=== PATIENT | male | born 1970 | race Caucasian/White ===

== ENCOUNTER 2020-10-28 00:19 | Day surgery (SDC) | payer BC, SELFPAY ==
[2020-10-18 15:18] VITALS: BMI 22.4
--- NOTE | 2020-10-27 11:34 | PM.HPGS ---
History of Present Illness History of Present Illness Consent: Risks, benefits, and alternatives have been discussed and questions answered. Patient agrees to proceed with procedure. Chief complaint: neoplasm screening Narrative: Ion Rodney is a 50 year old male referred for colon cancer screening. His father had colon cancer Review of Systems Review of Systems: All systems reviewed & are unremarkable except as noted in HPI and below PMFSH Past Medical History Medical History Paraplegia, complete Right rotator cuff tear (~08/2017) Social History Social History Smoking status: Never smoker Alcohol intake: current Drinks per week: 1 Living arrangements: alone Spiritual care concerns: No Meds Home Medications and Allergies Home Medications Medication Instructions Recorded Confirmed Type No Home Medications 10/05/19 10/18/20 History Allergies Allergy/AdvReac Type Severity Reaction Status Date / Time No Known Allergies Allergy Mild Verified 10/28/20 06:51 Exam Const: General: alert Orientation/consciousness: patient oriented x3 Resp: Auscultation: clear to auscultation bilaterally Cardio: Rhythm: regular rhythm GI: GI Palp: Yes Soft to palpation and No Tenderness to palpation present (GI) Neuro: General: patient oriented x3 Assessment and Plan Assessment and plan (1) Colon cancer screening: Code(s): Z12.11 - Encounter for screening for malignant neoplasm of colon Status: Acute Assessment and Plan: Colonoscopy with possible biopsy or polypectomy or cautery or injection of substances.
[2020-10-28] MEDS: LACTATED RINGERS 1,000 ML 150 ML IV CONT (06:48)
[2020-10-28 06:53] VITALS: BP 110/90; PULSE 74; RESP 18; TEMP 35.8; O2SAT 96; BMI 22.1
--- NOTE | 2020-10-28 06:54 | WPDANESEPPF ---
Anes - Initial Pre Proc Eval Procedure: Operation Date: 10/28/20 07:30 Proposed Procedures p Screening Colonoscopy - Liborio Stubbs MD Date/Time: 10/28/20 06:54 Surgeon: Liborio Stubbs MD Pre Op Diagnosis: neoplasm screening Patient Data Age: 50 Gender: M Height: 1.8 m Weight: 73 kg Allergies Allergy/AdvReac Type Severity Reaction Status Date / Time No Known Allergies Allergy Mild Verified 10/28/20 06:51 Home Medications Medication Instructions Recorded Confirmed Type No Home Medications 10/05/19 10/18/20 History Patient hx anesthesia problems: none Family hx anesthesia problems: none PMF Past Medical History Medical History Paraplegia, complete Right rotator cuff tear (~08/2017) Social History Social History Smoking status: Never smoker Alcohol intake: current Drinks per week: 1 Living arrangements: alone Spiritual care concerns: No Anes - Eval Final PreProcedure Day of Procedure 10/28/20 06:54 Patient weight: normal Heart: regular rate and rhythm Lungs: clear to auscultation Airway: Mallampati scale class 1 Neurological: alert and oriented Last oral intake: >/= 8 hours ASA classification: III Emergent: no Anesthetic plan: proceed Anesthesia type and monitoring: general GIVS and standard monitoring Informed Consent: The patient's anesthetic plan and its attendant risks and benefits were discussed with the patient/family/POA. Questions were solicited and answers provided to the satisfaction of the patient/family/POA.
[2020-10-28] MEDS: SIMETHICONE ORAL SUSPENSION 20 MG/0.3 ML 30 ML BOTTLE 0.6 ML IRRIGATION (07:40)
[2020-10-28 07:50] VITALS: BP 116/96; PULSE 82; RESP 26; O2SAT 94
[2020-10-28 08:00] VITALS: BP 71/38; PULSE 77; RESP 22; O2SAT 94
[2020-10-28 08:10] VITALS: BP 99/58; PULSE 77; RESP 22; O2SAT 94
== END 2020-10-28 08:35 | disposition home or self-care (01) ==
PROVIDERS: PCP Internal Medicine; Visit Provider Internal Medicine Gastroenterology
PROC: 0DJD8ZZ Inspection of Lower Intestinal Tract, Via Natural or Artificial Opening Endoscopic (ICD-10-PCS; CPT 45378; principal; 2020-10-28 07:30)
DX: Z12.11 Encounter for screening for malignant neoplasm of colon (principal); Z80.0 Family history of malignant neoplasm of digestive organs; G82.21 Paraplegia, complete; K64.8 Other hemorrhoids
CPT/HCPCS: 45378; J2001; J2704; J7120

== ENCOUNTER 2022-06-04 09:02 | Outpatient (CLI) | payer BC, SELFPAY ==
[2022-06-04 19:13] LABS: Basophils Percent Auto 0.7 % (0.2-1.2); Eosinophils Absolute Auto 0.2 K/mm3 (0-0.3); Eosinophils Percent Auto 4.2 % (0-4.4); Hematocrit 45.7 % (42.0-52.0); Hemoglobin 15.3 g/dL (14.0-18.0); Immature Granulocyte Absolute 0.01 K/mm3 (0.00-0.031); Immature Granulocyte Percent A 0.2 % (0-0.5); Lymphocytes Absolute Auto 1.83 K/mm3 (0.9-3.2); Lymphocytes Percent Auto 40.6 % (18.3-44.2); Mean Corpuscular HGB Conc 33.5 g/dl (32-36); Mean Corpuscular Hemoglobin 31.4 pg (26-34); Mean Corpuscular Volume 93.6 fl (80-100); Monocytes Absolute Auto 0.4 K/mm3 (0.1-0.6); Monocytes Percent Auto 9.8 % (2.6-8.5); Neutrophils Percent Auto 44.5 % (45.5-73.1); Platelet Count Result 243 k/mm3 (150-375); Red Blood Count 4.88 M/mm3 (4.6-6.20); Red Cell Distribution Width 13.2 % (11.5-14.5); White Blood Count 4.5 K/mm3 (4.5-10.0)
[2022-06-04 19:47] LABS: Alanine Aminotransferase 37 U/L (6-50); Albumin Level 4.5 g/dL (3.5-5.1); Alkaline Phosphatase 66 U/L (38-126); Anion Gap 6 mmol/L (8-16); Aspartate Amino Transferase 39 U/L (17-59); Bilirubin,Total 0.6 mg/dL (0.2-1.3); Blood Urea Nitrogen 22 mg/dL (9-20); Calcium 9.2 mg/dL (8.4-10.2); Carbon Dioxide 30 mmol/L (22-30); Chloride 103 mmol/L (98-107); Cholesterol 168 mg/dL (0-200); Estimated Glomerular Filt Rate > 60; Glucose 95 mg/dL (65-110); HDL Direct 42 mg/dL; Potassium 4.6 mmol/L (3.4-5.0); Sodium 139 mmol/L (137-145); Triglycerides 113 mg/dL (<150)
[2022-06-04 19:58] LABS: LDL Cholesterol Direct 90 mg/dL
[2022-06-04 20:14] LABS: Prostate Specific Antigen 0.9 ng/mL (< OR = 4.0)
[2022-06-04 20:50] LABS: Folic Acid > 20.0 ng/mL (2.76->20)
[2022-06-04 20:51] LABS: Vitamin D 25 Hydroxy 31.6 ng/mL
== END 2022-06-04 09:03 | disposition home or self-care (01) ==
LOC: ANHGOSHLAB 09:03
PROVIDERS: PCP Internal Medicine; Visit Provider Internal Medicine
DX: Z12.5 Encounter for screening for malignant neoplasm of prostate (principal); Z86.39 Personal history of other endocrine, nutritional and metabolic disease; Z13.29 Encounter for screening for other suspected endocrine disorder; Z13.228 Encounter for screening for other metabolic disorders; Z13.0 Encounter for screening for diseases of the blood and blood-forming organs and certain disorders involving the immune mechanism; G82.21 Paraplegia, complete
CPT/HCPCS: 36415; 80053; 80061; 82306; 82607; 82728; 82746; 84153; 85025; G0103

== ENCOUNTER 2022-10-21 19:05 | Inpatient (IN) | payer BC, SELFPAY ==
--- NOTE | ~2022-10-21 | CT_ITS ---
Noncontrast CT scan of the left upper extremity Clinical history: Cellulitis TECHNIQUE: Axial noncontrast imaging of the left nephrectomy was performed. Sagittal and coronal refo rmatted images were constructed. Dose reduction technique was used on this scan by utilizing automate d exposure control and iterative reconstruction technique. The dose-length product (DLP) was 1378.45 mGy-cm. Findings: No fracture or periosteal reaction identified. Visualized osseous structures are intact. No significant articular abnormality identified. No definite joint effusion. There is diffuse subcutaneous soft tissue edema, most pronounced over the posterior aspect of the pro ximal forearm and elbow. Evaluation for abscess is limited without IV contrast. No definite abscess s een. No definite muscle abnormality seen, although again evaluation is limited on noncontrast CT scan . IMPRESSION: Findings compatible with extensive cellulitis, most pronounced over the posterior aspect of the elbow and proximal forearm. Evaluation for abscess is limited without IV contrast. No osseous or articular abnormality evident. Reviewed, dictated and finalized at [facility]. IMPRESSION: Findings compatible with extensive cellulitis, most pronounced over the posteri or aspect of the elbow and proximal forearm. Evaluation for abscess is limited without IV contrast. No osseous or articular abnormality evident.
--- NOTE | ~2022-10-21 | US_ITS ---
EXAMINATION: US venous doppler [facility] DATE: 10/23/2022 08:29 INDICATION: Lower limb swelling and erythema TECHNIQUE: Grayscale ultrasound images without and with compression and Doppler ultrasound images of the left lower extremity veins were obtained. COMPARISON: None. FINDINGS: The visualized portions of left common femoral vein, profunda (deep) femoral vein, femoral vein, popl iteal vein, peroneal veins, posterior tibial veins, gastrocnemius vein and greater saphenous vein out flow are patent. IMPRESSION: 1. No deep venous thrombosis in the left lower limb. Reviewed, dictated and finalized at location A.
--- NOTE | ~2022-10-21 | XR_ITS ---
Portable chest x-ray Comparison: None Clinical History: Chest pain Findings: Lungs are clear, without focal consolidation or pleural effusion. Cardiomediastinal silho uette is stable. Right shoulder arthroplasty noted. Impression: Clear lungs. Reviewed, dictated and finalized at location . Impression: Clear lungs.
[2022-10-21 19:28] VITALS: BP 91/46; PULSE 92; RESP 20; TEMP 37.6; O2SAT 98
[2022-10-21 20:25] VITALS: BP 147/76; PULSE 99; RESP 16; TEMP 37.4; O2SAT 100
--- NOTE | 2022-10-21 20:34 | ECG_ITS ---
Measurements Intervals [place] Rate: 92 P: 67 DC: 157 QRS: -52 QRSD: 157 T: 31 QT: 398 QTc: 493 Interpretive Statements SINUS RHYTHM POSSIBLE LEFT ATRIAL ENLARGEMENT RIGHT BUNDLE BRANCH BLOCK LEFT ANTERIOR FASCICULAR BLOCK BASELINE ARTIFACT- I, II, AVR, AVL, AVF, V1-V4 ABNORMAL ECG NO PREVIOUS ECG AVAILABLE FOR COMPARISON Electronically Signed On 10-22-2022 8:09:30 CDT by Gennaro Velasquez D.O.
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
[2022-10-21 21:12] LABS: Basophils Percent Auto 0.3 % (0.2-1.2); Eosinophils Absolute Auto 0.1 K/mm3 (0-0.3); Eosinophils Percent Auto 0.6 % (0-4.4); Hematocrit 34.4 % (42.0-52.0); Hemoglobin 10.9 g/dL (14.0-18.0); Immature Granulocyte Absolute 0.05 K/mm3 (0.00-0.031); Immature Granulocyte Percent A 0.5 % (0-0.5); Lymphocytes Absolute Auto 1.38 K/mm3 (0.9-3.2); Lymphocytes Percent Auto 12.8 % (18.3-44.2); Mean Corpuscular HGB Conc 31.7 g/dl (32-36); Mean Corpuscular Hemoglobin 29.1 pg (26-34); Mean Corpuscular Volume 91.7 fl (80-100); Mean Platelet Volume 9.1 fl (7.4-10.4); Monocytes Absolute Auto 1.1 K/mm3 (0.1-0.6); Neutrophils Absolute Auto 8.2 K/mm3 (1.3-6.7); Neutrophils Percent Auto 75.8 % (45.5-73.1); Platelet Count Result 231 k/mm3 (150-375); Red Blood Count 3.75 M/mm3 (4.6-6.20); Red Cell Distribution Width 12.7 % (11.5-14.5); White Blood Count 10.8 K/mm3 (4.5-10.0)
[2022-10-21 21:24] LABS: INR 1.2; Lactic Acid Reflex 1.3 mmol/L (0.7-2.0); Prothrombin Time 15.4 Seconds (11.1-14.7)
[2022-10-21 21:25] VITALS: BP 84/50
[2022-10-21 21:25] LABS: Partial Thromboplastin Time 32.6 SECONDS (22.3-36.8)
[2022-10-21 21:26] LABS: Alanine Aminotransferase 24 U/L (6-50); Albumin Level 4.1 g/dL (3.5-5.1); Alkaline Phosphatase 61 U/L (38-126); Anion Gap 13 mmol/L (8-16); Aspartate Amino Transferase 32 U/L (17-59); Bilirubin,Total 0.6 mg/dL (0.2-1.3); Blood Urea Nitrogen 23 mg/dL (9-20); Calcium 8.6 mg/dL (8.4-10.2); Carbon Dioxide 19 mmol/L (22-30); Chloride 103 mmol/L (98-107); Estimated CRCL calculation 92 ml/min; Estimated Glomerular Filt Rate > 60; Glucose 123 mg/dL (65-110); Lipase 93 U/L (23-300); Magnesium 2.3 mg/dL (1.6-2.3); Phosphorus 3.1 mg/dL (2.5-4.5); Potassium 3.8 mmol/L (3.4-5.0); Sodium 135 mmol/L (137-145)
[2022-10-21 21:29] LABS: Appearance Urine Cloudy (Clear); Bacteria Urine 2+ /hpf; Bilirubin Urine Negative (Negative); Blood Urine 2+ (Negative); Color Urine Yellow (Yellow); Glucose Urine UA Negative (Negative); Ketones Urine 1+ mg/dL (Negative); Leukocyte Esterase Ur 2+ LEU/UL (Negative); Need Manual Microscopic Reviewed; Nitrate Urine Negative (Negative); Protein Urine 2+ mg/dL (Negative); RBC Urine 21-50 /hpf (0-2); Specific Grav Ur 1.023 (1.001-1.035); Squamous Epithelial Cell Urine Occasional /hpf (Few); WBC Urine 51-100 /hpf
[2022-10-21 21:31] LABS: Add Urine Microscopic? YES
[2022-10-21] MEDS: SODIUM CHLORIDE 0.9% IV 2,000 ML 999 ML IV CONT (21:31)
[2022-10-21 21:38] LABS: Troponin I < 0.012 ng/mL (0.000-0.034)
[2022-10-21 21:54] VITALS: BP 114/68; PULSE 98; RESP 17; O2SAT 97
[2022-10-21 21:58] LABS: Influenza A QL RT-PCR Negative (Negative); Influenza B QL RT-PCR Negative (Negative); RSV RNA, RT-PCR Negative (Negative); SARS-CoV-2 RNA PCR Negative (Negative)
[2022-10-21 22:20] LABS: NT Pro B Type Natriuretic Pept 84 pg/mL (19.9-100); Troponin I < 0.012 ng/mL (0.000-0.034)
[2022-10-21 23:39] VITALS: BP 106/55; PULSE 109; RESP 28; TEMP 37.7; O2SAT 99
[2022-10-22] VITALS (10 sets, daily range): BP systolic 87–120; BP diastolic 32–60; PULSE 84–98; RESP 14–18; TEMP 36.1–36.6; O2SAT 95–98; BMI 21.9
--- NOTE | 2022-10-22 00:36 | PM.IMHP ---
H&P: HPI History of Present Illness Date/Time: 10/22/22 00:36 Chief Complaint: Right arm redness and swelling Narrative: 52-year-old male with past medical history of incomplete quadriplegia level C5-C7 since 2017 with associated chronic low blood pressure (95 systolic), neurogenic bowel and bladder who presented to the ER from home due to right lower arm swelling and redness as well as associated fevers and chills. He reports that he was visiting his daughter out of state and he was using his arms to break his wheelchair. He ended up with some abrasions in scrape to his arms from friction. He has had cellulitis before from injuries like this. He was very careful to treat as abrasions on his right arm but missed care for the left arm. He reports for the last at 2 days he has been feeling more fatigued having chills and subjective fevers. Then on the he noticed that his left arm was starting to swell and become erythematous. His neighbor who is a healthcare provider marked the edges of the erythema. But time my evaluation the erythema had worsened beyond the edges of the erythema. The patient does note that there is a raised indurated warm area of erythema just distal to his elbow and his left arm approximately 5 cm in diameter. He reports some discomfort from the area. He does have some sensation in that part of his arm. He reports feeling generalized achiness. He is having some mild intermittent headache. He reports that he had been fasting for 3 days earlier this week. He routinely fast intermittently were ordered to keep his weight manageable. He has not had a bowel movement in 2.5 days. He usually does a bowel regimen every 2 days but skipped a day due to having fasted. He assumed if he had fasted he would not need to have a bowel movement. He does state straight catheterization approximately every 4 hours each day. He knows that his bladder is full when he feels the hair on the back of his neck raise. He has a special straight coude catheter that he uses. He has not noticed any change in his urine and reports that his last void was clear unusual in appearance. The patient's hemoglobin has dropped from 15.3 down to 10.9. He reports that approximately 15 days or so ago he was having a moderate to significant amount of rectal bleeding with his bowel movements. He had a colonoscopy in [address] Adorno that demonstrated internal hemorrhoids. He reports that his last 2 bowel movements did not have any blood. He reports that he drinks eats a diet extremely high in red meat. The patient reports that he does have some chronic edema to his legs. He has noticed some increased edema and erythema to his left leg recently. Review of Systems Review of Systems: 12 systems were reviewed with pertinent positives and negatives per HPI. Except as documented in the HPI, all other systems were reviewed and are negative. 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 He is dependent on
[2022-10-22] MEDS: ceFAZolin 1 GM/NS 50 ML 1 GM/50 ML BAG IVPB ×4 (01:00→23:12)
--- NOTE | 2022-10-22 01:15 | ADMGEN ---
This patient, Ion Rodney, was admitted to Medical Room 340-01. Patient/family oriented to hospital policies and general routines including ID bracelet, bed and alarms, visiting hours, pain management, procedures, bathroom and other care routines, personal items, smoking policy, room service/diet, and visiting hours. Information on how to activate the Rapid Response Team has been discussed. Patient/Family are encouraged to report perceived risks to care and to ask questions if they do not understand what they are told or what they should do.
[2022-10-22] MEDS: SODIUM CHLORIDE 0.9% IV 1,000 ML 100 ML IV CONT (02:45)
[2022-10-22] MEDS: LIDOCAINE HCL 1% LOCAL INJ 20 ML VIAL INFILTRATE (04:30)
[2022-10-22 06:05] LABS: Basophils Percent Auto 0.3 % (0.2-1.2); Eosinophils Absolute Auto 0.1 K/mm3 (0-0.3); Hematocrit 31.9 % (42.0-52.0); Hemoglobin 10.4 g/dL (14.0-18.0); Immature Granulocyte Absolute 0.05 K/mm3 (0.00-0.031); Immature Granulocyte Percent A 0.5 % (0-0.5); Lymphocytes Absolute Auto 1.19 K/mm3 (0.9-3.2); Lymphocytes Percent Auto 12.3 % (18.3-44.2); Mean Corpuscular HGB Conc 32.6 g/dl (32-36); Mean Corpuscular Hemoglobin 29.6 pg (26-34); Mean Corpuscular Volume 90.9 fl (80-100); Mean Platelet Volume 8.9 fl (7.4-10.4); Monocytes Absolute Auto 0.9 K/mm3 (0.1-0.6); Monocytes Percent Auto 9.1 % (2.6-8.5); Neutrophils Absolute Auto 7.4 K/mm3 (1.3-6.7); Neutrophils Percent Auto 76.8 % (45.5-73.1); Platelet Count Result 204 k/mm3 (150-375); Red Blood Count 3.51 M/mm3 (4.6-6.20); Red Cell Distribution Width 12.5 % (11.5-14.5); White Blood Count 9.7 K/mm3 (4.5-10.0)
[2022-10-22 06:06] LABS: Immature Reticulocyte Fraction 9.9 % (3.0-15.9); Reticulocyte Hemoglobin Conten 28.7 pg (28.2-35.7); Reticulocytes Absolute 0.05 M/mm3 (0.02-0.1)
[2022-10-22 07:08] LABS: Iron 26 ug/dL (49-181)
[2022-10-22 07:13] LABS: Anion Gap 8 mmol/L (8-16); Blood Urea Nitrogen 13 mg/dL (9-20); Carbon Dioxide 21 mmol/L (22-30); Chloride 108 mmol/L (98-107); Estimated CRCL calculation 106 ml/min; Estimated Glomerular Filt Rate > 60; Glucose 117 mg/dL (65-110); Potassium 3.7 mmol/L (3.4-5.0); Sodium 137 mmol/L (137-145)
[2022-10-22 07:25] LABS: Percent Iron Saturation 7 % (20-50)
--- NOTE | 2022-10-22 09:03 | WPDPROCEDUR ---
Procedures Abscess I/D Site: upper extremity Side (if applicable): left Sedation/analgesia: none Anesthetic used: lidocaine 1% Technique: incised with #11 blade and probed loculations Amount of fluid (mL): 10 Irrigation: Yes Packing used?: iodoform
[2022-10-22] MEDS: ACETAMINOPHEN 325 MG TABLET 650 MG PO ×3 (09:18→23:11)
--- NOTE | 2022-10-22 16:37 | PM.IMPN ---
Progress Note: A&P Assessment and Plan (1) Left arm cellulitis: Code(s): L03.114 - Cellulitis of left upper limb Status: Acute Assessment and Plan: Patient does not meet criteria for sepsis. Tachycardia was mild at 109 x 1 measurement. Lactic acid level was normal. White count was elevated at 10.8K and is now normal. BP was documented at 84/50 but nursing staff are having a hard time with accurate measurements and having to do manual measurements. Patient does have obvious left parris elbow infection. he has undergone I and D by the admitting provider. was started on Ancef and vancomycin. Patient feels that condition is worsening. Will have him elevate The left arm. Check CT scan to assess for abscess. General surgery consulting case this needs to be opened further. Wound care consult. (2) Acute anemia: Code(s): D64.9 - Anemia, unspecified Status: Acute Assessment and Plan: Patient does have a history of iron deficiency anemia. However, his only prior hemoglobin with our system was 15.3 in May. B12/folate normal. Iron studies low again with TSAT 7%. Stool for occult blood pending. Follow Hgb. Transfuse as necessary. 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 The patient had transient hypotension with blood pressures down in the 80s on admission. The patient has borderline hypotension chronically due to spinal cord injury per patient. He did receive a fluid bolus in the ED and and his baseline blood pressures improved. He also has a neurogenic bowel requiring in/out catheterization. Specialty mattress. Frequent turning. Good skin care. (4) Abnormal finding on urinalysis: Code(s): R82.90 - Unspecified abnormal findings in urine Status: Acute Assessment and Plan: Patient does have an abnormal UA but he intermittently straight caths. The patient has UTIs once or twice a year. Urine culture is pending. Will continue intermittent straight catheterization. Plan DVT prophylaxis - lovenox Code status - full Subjective Date/time seen: 10/22/22 16:37 Interval history: 52yo male with C5-7 quadriplegia with neurogenic bladder who presents with left arm redness and swelling. Patient feels the left arm is enlarging. He denies pain but not uncommon for him not to feel much in the left arm. Feels well otherwise. No CP or SOB. No n/v. Exam Narrative: AF 97.7 120/49 98 18 95%ra Gen - NARD sitting up in bed Chest - concave chest. lungs clear anteriorly and in the flanks CV - RRR S1/S2. Tele showing no significant dysrhythmias Abd - Soft, protuberant, NT, bladder does not feel distended Ext - right forearm muscles are atrophy. Left posterior forearm distal to the elbow with firm indurated, raised area of erythema with central area open and wick noted. Not able to express fluid from the area. Neuro - Alert and appropriate. quadriplegic with some ability to use the right arm and hand Psych - Nml mood and affect Skin - as above Objective Data Vital Signs Vital Signs: Vital Signs - 24 hr 10/21/22 19:28 10/21/22 20:25 10/21/22 21:54 Temperature 99.7 F H 99.4 F Pulse Rate 92 99 98 Respiratory Rate 20 16 17 Blood Pressure 91/46 L 147/76 H 114/68 Pulse Oximetry 98 100 97 Oxygen Delivery Room Air 10/21/22 21:25 10/21/22 23:39 10/22/22 01:29 Temperature 99.9 F H 97.1 F L Pulse Rate 109 H 95 Respiratory Rate 28 H 14 Blood Pressure 84/50 L 106/55 L 100/32 L Pulse Oximetry 99 97 Oxygen Delivery 10/22/22 04:44 10/22/22 04:00 10/22/22 09:18 Temperature 97.7 F Pulse Rate 93 93 84 Respiratory Rate 18 Blood Pressure 120/49 L Pulse Oximetry 95 Oxygen Delivery 10/22/22 09:18 10/22/22 12:00 10/22/22 01:33 [place]a
--- NOTE | 2022-10-22 17:34 | PC.NURSE ---
Patient off of unit to CT scan
--- NOTE | 2022-10-22 17:45 | PC.NURSE ---
Coroner/Medical Examiner spoke with Charge Nurse Samra in regards to specialty bed. Samra is going to order bed for patient.
--- NOTE | 2022-10-22 17:45 | PC.NURSE ---
Motorcycle Repair Shop Supervisor called OB admitting and clarified that patient is on Dr. Mcconnell list for tomorrow.
[2022-10-22] MEDS: VANCOMYCIN 1,250 MG/NS 250 ML 1,250 MG/250 ML BAG 166.67 MG IVPB (18:07)
--- NOTE | 2022-10-22 18:16 | PC.NURSE ---
[employer] spoke with patient and he is refusing the speciality bed. [employer] notified hospitalist Gail.
[2022-10-22 23:34] LABS: IFOB Positive Control Positive; Immunochemical Fecal Occult Bl Negative (N)
[2022-10-23] VITALS (8 sets, daily range): BP systolic 91–122; BP diastolic 51–84; PULSE 72–91; RESP 16–18; TEMP 35.8–36.2; O2SAT 98–99
[2022-10-23] MEDS: VANCOMYCIN 1,250 MG/NS 250 ML 1,250 MG/250 ML BAG 166.67 MG IVPB (05:26)
[2022-10-23 05:44] LABS: Basophils Percent Auto 0.4 % (0.2-1.2); Eosinophils Absolute Auto 0.2 K/mm3 (0-0.3); Eosinophils Percent Auto 2.2 % (0-4.4); Hematocrit 33.6 % (42.0-52.0); Hemoglobin 10.8 g/dL (14.0-18.0); Immature Granulocyte Absolute 0.04 K/mm3 (0.00-0.031); Immature Granulocyte Percent A 0.4 % (0-0.5); Lymphocytes Absolute Auto 1.42 K/mm3 (0.9-3.2); Mean Corpuscular HGB Conc 32.1 g/dl (32-36); Mean Corpuscular Hemoglobin 29.4 pg (26-34); Mean Corpuscular Volume 91.6 fl (80-100); Monocytes Absolute Auto 1.1 K/mm3 (0.1-0.6); Monocytes Percent Auto 10.4 % (2.6-8.5); Neutrophils Absolute Auto 7.4 K/mm3 (1.3-6.7); Neutrophils Percent Auto 72.6 % (45.5-73.1); Platelet Count Result 203 k/mm3 (150-375); Red Blood Count 3.67 M/mm3 (4.6-6.20); Red Cell Distribution Width 12.7 % (11.5-14.5); White Blood Count 10.2 K/mm3 (4.5-10.0)
[2022-10-23 05:58] LABS: Alanine Aminotransferase 18 U/L (6-50); Albumin Level 3.4 g/dL (3.5-5.1); Alkaline Phosphatase 57 U/L (38-126); Anion Gap 9 mmol/L (8-16); Aspartate Amino Transferase 18 U/L (17-59); Bilirubin,Total 0.6 mg/dL (0.2-1.3); Blood Urea Nitrogen 13 mg/dL (9-20); Calcium 8.5 mg/dL (8.4-10.2); Carbon Dioxide 22 mmol/L (22-30); Chloride 107 mmol/L (98-107); Estimated CRCL calculation 122 ml/min; Estimated Glomerular Filt Rate > 60; Glucose 113 mg/dL (65-110); Magnesium 2.2 mg/dL (1.6-2.3); Phosphorus 3.2 mg/dL (2.5-4.5); Potassium 3.6 mmol/L (3.4-5.0); Sodium 138 mmol/L (137-145)
--- NOTE | 2022-10-23 11:50 | PC.NURSE ---
Logging Shovel Operator called Dr. Reynolds to update him on patient's IV infiltrating and discuss the next best option for him. No answer at this time. Will call again.
--- NOTE | 2022-10-23 11:56 | PM.CNGS ---
Assessment and Plan Assessment and plan (1) Abscess of left arm: Code(s): L02.414 - Cutaneous abscess of left upper limb Status: Acute Assessment and Plan: Left forearm abscess s/p I&D by Hospitalist. Preliminary cultures growing staph aureus. Abscess appears adequately drained. Continue daily packing with 1/4 iodoform gauze. Continue IV antibiotics, sensitivities pending. No indication for further surgical intervention at this time, will continue to follow. (2) Left arm cellulitis: Code(s): L03.114 - Cellulitis of left upper limb Status: Acute Assessment and Plan: No ascending cellulitis, appears to be overall improving. Continue IV antibiotics. 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 Diaz. Thank you for allowing us to see the patient in consultation and we will continue to follow along with you. History of Present Illness Consult details Consult date: 10/23/22 Reason for consult: other (Left arm cellulitis, possible abscess) Requesting physician: Asad Reynolds MD Narrative: This is a 52-year-old man with a history of incomplete quadriplegia with neurogenic bowel and bladder who presented to the ER from home with left lower arm swelling and redness. He was out of state with his daughter and using his arms to break his wheelchair. He reports having issues in the past with abrasions and infections of his upper extremities due to his wheelchair use. He typically keeps a very close eye on it, but neglected watching his left arm on this trip. After his trip, he noticed some abrasions on the left forearm from friction around an area of dry skin. He watched this area closely and noticed some swelling and erythema to his left forearm. He had associated chills and fever 2 days prior to coming into the ER. He had marked the area of erythema to monitor the redness. This worsened by the time he was in the ER. He presented to the ER 2 nights ago for evaluation of the left arm swelling and redness. Labs [place] [id number] scan of the left upper extremity showed extensive cellulitis most pronounced over the posterior aspect of the elbow and proximal forearm. The CT was done without contrast, which was limited for an abscess. He was admitted to the hospitalist, who performed an I&D of the left arm abscess. Cultures were obtained and preliminary results are showing growth of Staph aureus. He is currently on IV cefazolin and vancomycin. He had a left upper extremity venous Doppler today that was negative. Our service has been consulted for surgical evaluation of the left upper extremity cellulitis and possible abscess. They have been packing the left arm wound with quarter-inch iodoform. The patient feels his redness and swelling has improved since admission. He has noted some worsening left wrist and hand swelling this morning after sleeping on his left side last night. Otherwise, the swelling in his forearm and upper arm has improved. The redness has come down from the upper arm to just above the elbow. Denies a history of MRSA. 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
--- NOTE | 2022-10-23 14:42 | PM.IMPN ---
Progress Note: A&P Assessment and Plan (1) Left arm cellulitis: Code(s): L03.114 - Cellulitis of left upper limb Status: Acute Assessment and Plan: Patient does not meet criteria for sepsis. Tachycardia was mild at 109 x 1 measurement. Lactic acid level was normal. White count was elevated at 10.8K and is now normal. BP was documented at 84/50 but nursing staff are having a hard time with accurate measurements and having to do manual measurements. Patient does have obvious left parris elbow cellulitis. he has undergone I and D by the admitting provider. was started on Ancef and vancomycin. No DVT. CT scan showing no obvious abscess. Wound culture growing Staph aureus. BCx NGTD. Continue to elevate the left arm. General surgery following Continue Ancef and Vanco. Narrow abx when able. (2) Acute anemia: Code(s): D64.9 - Anemia, unspecified Status: Acute Assessment and Plan: Hgb 10.9. Patient does have a history of iron deficiency anemia. However, his only prior hemoglobin with our system was 15.3 in May. B12/folate normal. Iron studies low again with TSAT 7%. Stool for occult blood negative. Hgb stable. Transfuse as necessary. 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 The patient had transient hypotension with blood pressures down in the 80s on admission. The patient has borderline hypotension chronically due to spinal cord injury per patient. He did receive a fluid bolus in the ED and and his baseline blood pressures improved. He also has a neurogenic bowel requiring in/out catheterization. Frequent turning. Good skin care. Out of bed (4) Abnormal finding on urinalysis: Code(s): R82.90 - Unspecified abnormal findings in urine Status: Acute Assessment and Plan: Patient does have an abnormal UA but he intermittently straight caths. The patient has UTIs once or twice a year. Urine culture is pending. Will continue intermittent straight catheterization. Abx as above Plan DVT prophylaxis - lovenox Code status - full Subjective Date/time seen: 10/23/22 14:42 Interval history: 52yo male with C5-7 quadriplegia with neurogenic bladder who presents with left arm redness and swelling. Feels left arm less swollen today. Minimal pain due to quadriplegia. Refuses specialty mattress and would prefer to be out of bed in his wheel chair. Feeling better Exam Narrative: AF 96.4 95/56 85 16 98%ra Gen - NARD sitting up in bed Chest - CTA bilaterally, nml RR CV - RRR S1/S2. Tele showing no significant dysrhythmias Abd - Soft, NT/ND, +BS Ext - no pedal edema Neuro - Alert and appropriate. quadriplegic with some ability to use the right arm and hand and left arm Psych - Nml mood and affect Skin - left arm less edematous. erythema upper arm and into the forearm. Distal to the left elbow, the old incision is closed. Objective Data Vital Signs Vital Signs: Vital Signs - 24 hr 10/22/22 16:45 10/22/22 16:00 10/22/22 22:00 Temperature 97.8 F 96.9 F L Pulse Rate 91 92 91 Respiratory Rate 18 18 Blood Pressure 98/60 L 87/49 L Pulse Oximetry 95 98 Oxygen Delivery 10/22/22 20:00 10/23/22 00:00 10/23/22 04:00 Temperature Pulse Rate 95 72 75 Respiratory Rate Blood Pressure Pulse Oximetry Oxygen Delivery 10/23/22 05:45 10/23/22 08:00 10/23/22 08:00 Temperature 96.4 F L Pulse Rate 81 90 Respiratory Rate 16 Blood Pressure 95/56 L Pulse Oximetry 98 Oxygen Delivery Room Air 10/23/22 12:00 Temperature Pulse Rate 85 Respiratory Rate Blood Pressure Pulse Oximetry Oxygen Delivery Intake/Output Intake/Output: Intake & Output 10/20/22 10/21/22 10/22/22 10/23/22 23:59 23:59 23:59 2
[2022-10-23] MEDS: ceFAZolin 1 GM/NS 50 ML 1 GM/50 ML BAG IVPB ×2 (17:49→23:02)
[2022-10-23] MEDS: ACETAMINOPHEN 325 MG TABLET 650 MG PO (18:31)
[2022-10-23] MEDS: VANCOMYCIN 1,250 MG/NS 250 ML 1,250 MG/250 ML BAG 120 MG IVPB (18:45)
[2022-10-24] MEDS: VANCOMYCIN 1,250 MG/NS 250 ML 1,250 MG/250 ML BAG 125 MG IVPB (04:47)
[2022-10-24 05:39] VITALS: BP 118/67; PULSE 82; RESP 16; TEMP 35.9; O2SAT 97
[2022-10-24 05:43] LABS: Basophils Percent Auto 0.5 % (0.2-1.2); Eosinophils Absolute Auto 0.4 K/mm3 (0-0.3); Eosinophils Percent Auto 5.9 % (0-4.4); Hematocrit 32.1 % (42.0-52.0); Hemoglobin 10.2 g/dL (14.0-18.0); Immature Granulocyte Absolute 0.03 K/mm3 (0.00-0.031); Immature Granulocyte Percent A 0.5 % (0-0.5); Lymphocytes Absolute Auto 1.19 K/mm3 (0.9-3.2); Lymphocytes Percent Auto 19.4 % (18.3-44.2); Mean Corpuscular HGB Conc 31.8 g/dl (32-36); Mean Corpuscular Volume 91.2 fl (80-100); Mean Platelet Volume 8.7 fl (7.4-10.4); Monocytes Absolute Auto 0.7 K/mm3 (0.1-0.6); Monocytes Percent Auto 10.9 % (2.6-8.5); Neutrophils Absolute Auto 3.9 K/mm3 (1.3-6.7); Neutrophils Percent Auto 62.8 % (45.5-73.1); Platelet Count Result 224 k/mm3 (150-375); Red Blood Count 3.52 M/mm3 (4.6-6.20); Red Cell Distribution Width 12.7 % (11.5-14.5); White Blood Count 6.1 K/mm3 (4.5-10.0)
[2022-10-24 06:07] LABS: Anion Gap 9 mmol/L (8-16); Blood Urea Nitrogen 16 mg/dL (9-20); Calcium 8.3 mg/dL (8.4-10.2); Carbon Dioxide 23 mmol/L (22-30); Chloride 106 mmol/L (98-107); Estimated CRCL calculation 106 ml/min; Estimated Glomerular Filt Rate > 60; Glucose 103 mg/dL (65-110); Potassium 3.5 mmol/L (3.4-5.0); Sodium 138 mmol/L (137-145)
[2022-10-24] MEDS: ceFAZolin 1 GM/NS 50 ML 1 GM/50 ML BAG IVPB (08:04)
--- NOTE | 2022-10-24 09:39 | PM.IMPN ---
Progress Note: A&P Assessment and Plan (1) Left arm cellulitis: Code(s): L03.114 - Cellulitis of left upper limb Status: Acute Assessment and Plan: Patient does not meet criteria for sepsis. Tachycardia was mild at 109 x 1 measurement. Lactic acid level was normal. White count was elevated at 10.8K and is now normal. BP was documented at 84/50 but nursing staff are having a hard time with accurate measurements and having to do manual measurements. Patient does have obvious left parris elbow cellulitis. he has undergone I and D by the admitting provider. was started on Ancef and vancomycin. No DVT. CT scan showing no obvious abscess. Wound culture growing Staph aureus. BCx NGTD. Continue to elevate the left arm. General surgery following Continue Ancef and Vanco. Narrow abx when able. (2) Acute anemia: Code(s): D64.9 - Anemia, unspecified Status: Acute Assessment and Plan: Hgb 10.9. Patient does have a history of iron deficiency anemia. However, his only prior hemoglobin with our system was 15.3 in May. B12/folate normal. Iron studies low again with TSAT 7%. Stool for occult blood negative. Hgb stable. Transfuse as necessary. 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 The patient had transient hypotension with blood pressures down in the 80s on admission. The patient has borderline hypotension chronically due to spinal cord injury per patient. He did receive a fluid bolus in the ED and and his baseline blood pressures improved. He also has a neurogenic bowel requiring in/out catheterization. Frequent turning. Good skin care. Out of bed (4) Abnormal finding on urinalysis: Code(s): R82.90 - Unspecified abnormal findings in urine Status: Acute Assessment and Plan: Patient does have an abnormal UA but he intermittently straight caths. The patient has UTIs once or twice a year. Urine culture is pending. Will continue intermittent straight catheterization. Abx as above Plan DVT prophylaxis - lovenox Code status - full Subjective Date/time seen: 10/24/22 09:39 Interval history: 52yo male with C5-7 quadriplegia with neurogenic bladder who presents with left arm redness and swelling. Feels left arm less swollen today. Minimal pain due to quadriplegia. Refuses specialty mattress and would prefer to be out of bed in his wheel chair. Feeling better Review of Systems Review of Systems: 12 point review of systems was assessed and was negative except as noted in the HPI Exam Narrative: AF 96.4 95/56 85 16 98%ra Gen - NARD sitting up in bed Chest - CTA bilaterally, nml RR CV - RRR S1/S2. Tele showing no significant dysrhythmias Abd - Soft, NT/ND, +BS Ext - no pedal edema Neuro - Alert and appropriate. quadriplegic with some ability to use the right arm and hand and left arm Psych - Nml mood and affect Skin - left arm less edematous. erythema upper arm and into the forearm. Distal to the left elbow, the old incision is closed. Objective Data Vital Signs Vital Signs: Vital Signs - 24 hr 10/23/22 12:00 10/23/22 15:33 10/23/22 21:23 Temperature 97.2 F L 97.1 F L Pulse Rate 85 84 91 Respiratory Rate 18 18 Blood Pressure 122/84 91/51 L Pulse Oximetry 99 98 Oxygen Delivery 10/23/22 20:00 10/24/22 05:39 10/24/22 08:14 Temperature 96.7 F L Pulse Rate 91 82 Respiratory Rate 18 16 Blood Pressure 118/67 Pulse Oximetry 98 97 Oxygen Delivery Room Air Room Air Intake/Output Intake/Output: Intake & Output 10/21/22 10/22/22 10/23/22 10/24/22 23:59 23:59 23:59 23:59 Intake Total 1999 3030 2380 880 Output Total 3170 1550 600 Balance 1999 280 830 280 Meds/Results Medications: Active Medication
[2022-10-24 11:00] VITALS: O2SAT 98
[2022-10-24] MEDS: ACETAMINOPHEN 325 MG TABLET 650 MG PO (12:14)
[2022-10-24 14:00] VITALS: BP 94/55; PULSE 88; RESP 18; TEMP 37; O2SAT 100
--- NOTE | 2022-10-24 14:16 | PM.DS ---
DS: Admitting Diagnosis Discharge Date 10/24/22 Admitting Diagnosis left arm swelling and redness cellulitis DS: Discharge Diagnosis Discharge Diagnosis (1) Left arm cellulitis: Code(s): L03.114 - Cellulitis of left upper limb Status: Acute Assessment and Plan: Patient does not meet criteria for sepsis. Tachycardia was mild at 109 x 1 measurement. Lactic acid level was normal. White count was elevated at 10.8K and is now normal. BP was documented at 84/50 but nursing staff are having a hard time with accurate measurements and having to do manual measurements. Patient does have obvious left parris elbow cellulitis. he has undergone I and D by the admitting provider. was started on Ancef and vancomycin. No DVT. CT scan showing no obvious abscess. Wound culture growing Staph aureus. BCx NGTD. Continue to elevate the left arm. General surgery following Continue Ancef and Vanco. Narrow abx when able. (2) Acute anemia: Code(s): D64.9 - Anemia, unspecified Status: Acute Assessment and Plan: Hgb 10.9. Patient does have a history of iron deficiency anemia. However, his only prior hemoglobin with our system was 15.3 in May. B12/folate normal. Iron studies low again with TSAT 7%. Stool for occult blood negative. Hgb stable. Transfuse as necessary. 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 The patient had transient hypotension with blood pressures down in the 80s on admission. The patient has borderline hypotension chronically due to spinal cord injury per patient. He did receive a fluid bolus in the ED and and his baseline blood pressures improved. He also has a neurogenic bowel requiring in/out catheterization. Frequent turning. Good skin care. Out of bed (4) Abnormal finding on urinalysis: Code(s): R82.90 - Unspecified abnormal findings in urine Status: Acute Assessment and Plan: Patient does have an abnormal UA but he intermittently straight caths. The patient has UTIs once or twice a year. Urine culture is pending. Will continue intermittent straight catheterization. Abx as above Plan DVT prophylaxis - lovenox Code status - full DS: Summary Hospital Course Hospital Course: 52yo male with C5-7 quadriplegia with neurogenic bladder who presents with left arm redness and swelling. Patient does not meet criteria for sepsis.? Tachycardia was mild at 109 x 1 measurement.? Lactic acid level was normal.? White count was elevated at 10.8K and is now normal. BP was documented at 84/50 but nursing staff are having a hard time with accurate measurements and having to do manual measurements.? Patient does have obvious left parris elbow cellulitis. he has undergone I and D by the admitting provider. was started on Ancef and vancomycin.? No DVT. CT scan showing no obvious abscess. Wound culture growing Staph aureus. BCx NGTD. Continue to elevate the left arm.? General surgery following Continue Ancef and Vanco. Narrow abx when able. Wound culture came back s. aureus, tello sens. D/c on keflex with local wound care. Please see above and med rec for details. Patient discharged in stable condition with close outpatient follow-up. Time Spent with Patient Time attestation: Total time spent providing and/or coordinating discharge services: Exam Narrative: AF 96.4 95/56 85 16 98%ra Gen - NARD sitting up in bed Chest - CTA bilaterally, nml RR CV - RRR S1/S2. Tele showing no significant dysrhythmias Abd - Soft, NT/ND, +BS Ext - no pedal edema Neuro - Alert and appropriate. quadriplegic with some ability to use the right arm and hand and left arm Psych - Nml mood and affect Skin - left arm less edematous. erythema upper arm and into the forearm. Distal to the l
--- NOTE | 2022-10-24 15:50 | PM.PNGS ---
Progress Note: A&P Assessment and Plan (1) Abscess of left arm: Code(s): L02.414 - Cutaneous abscess of left upper limb Status: Acute Assessment and Plan: doing well, cont local wound care and abx, ok to dc home Subjective Subjective Date/Time Seen: 10/24/22 15:50 Interval history: no acute issues, want to be discharged Review of Systems Review of Systems: All systems reviewed & are unremarkable except as noted in HPI and below Exam Const: General: cooperative, comfortable and no acute distress Resp: Auscultation: clear to auscultation bilaterally Cardio: Rate: regular rate Rhythm: regular rhythm GI: Inspection: normal to inspection Skin: Other: UE wound - C/D/I, minimal drainage, cellulitis largely resolved Objective Data Vital Signs Vital Signs: Vital Signs - 24 hr 10/23/22 21:23 10/23/22 20:00 10/24/22 05:39 Temperature 36.2 C L 35.9 C L Pulse Rate 91 91 82 Respiratory Rate 18 18 16 Blood Pressure 91/51 L 118/67 Pulse Oximetry 98 98 97 Oxygen Delivery Room Air 10/24/22 08:14 10/24/22 11:00 10/24/22 14:00 Temperature 37.0 C Pulse Rate 88 Respiratory Rate 18 Blood Pressure 94/55 L Pulse Oximetry 98 100 Oxygen Delivery Room Air Room Air Intake/Output Intake/Output: Intake & Output 10/21/22 10/22/22 10/23/22 10/24/22 23:59 23:59 23:59 23:59 Intake Total 1999 3030 2380 1000 Output Total 2750 1550 900 Balance 1999 280 830 100 Meds/Results Radiology Results: ITS Impressions Chest X-Ray 10/21/22 21:22 Impression: Clear lungs. Upper Extremity CT 10/22/22 18:02 IMPRESSION: Findings compatible with extensive cellulitis, most pronounced over the posterior aspect of the elbow and proximal forearm. Evaluation for abscess is limited without IV contrast. No osseous or articular abnormality evident. Venous Doppler Study 10/23/22 08:30 IMPRESSION: 1. No deep venous thrombosis in the left lower limb. Labs Labs: Laboratory Results - last 24 hr 10/23/22 10/24/22 15:50 05:29 WBC 6.1 RBC 3.52 L Hgb 10.2 L Hct 32.1 L MCV 91.2 MCH 29.0 MCHC 31.8 L RDW 12.7 Plt Count 224 MPV 8.7 Immature Gran % (Auto) 0.5 Neut % (Auto) 62.8 Lymph % (Auto) 19.4 Tyrrell % (Auto) 10.9 H Eos % (Auto) 5.9 H Baso % (Auto) 0.5 Lymph # (Auto) 1.19 [place]rell # (Auto) 0.7 H Eos # (Auto) 0.4 H Baso # (Auto) 0.0 Abs Immat Gran (auto) 0.03 Absolute Neuts (auto) 3.9 Absolute Nucleated RBC 0.0 Nucleated RBC % 0.0 Sodium 138 Potassium 3.5 Chloride 106 Carbon Dioxide 23 Anion Gap 9 BUN 16 Creatinine 0.70 Estim Creat Clear Calc 106 Estimated GFR > 60 Glucose 103 Calcium 8.3 L Vancomycin Trough 13.0
== END 2022-10-24 14:58 | disposition home or self-care (01) | DRG 602 ==
LOC: ANHED 10-22 00:21 → ANH3MED 10-22 00:38
PROVIDERS: Internal Medicine; Admitting Provider Internal Medicine; Emergency Provider Emergency Medicine; PCP Internal Medicine; Visit Provider Student in an Organized Health Care Education/Training Program
DX: L03.114 Cellulitis of left upper limb (principal); G82.54 Quadriplegia, C5-C7 incomplete; K59.2 Neurogenic bowel, not elsewhere classified; B95.61 Methicillin susceptible Staphylococcus aureus infection as the cause of diseases classified elsewhere; D50.8 Other iron deficiency anemias; R82.90 Unspecified abnormal findings in urine; N31.8 Other neuromuscular dysfunction of bladder; I95.9 Hypotension, unspecified; Z96.611 Presence of right artificial shoulder joint; Z85.820 Personal history of malignant melanoma of skin; Z85.828 Personal history of other malignant neoplasm of skin; Z98.1 Arthrodesis status
CPT/HCPCS: 36415; 71045; 73200; 80048; 80053; 80202; 81001; 82274; 82607; 82728; 82746; 83540; 83550; 83605; 83690; 83735; 83880; 84100; 84484; 85025; 85046; 85610; 85730; 87040; 87070; 87086; 87088; 87147; 87181; 87186; 87205; 87637; 93005; 93971; 99285; A9270; J0690; J3370; J7030

== ENCOUNTER 2022-11-06 19:28 | Emergency (ER) | payer BC, SELFPAY ==
[2022-11-06 19:41] VITALS: BP 133/80; PULSE 90; RESP 16; TEMP 37; O2SAT 99
--- NOTE | 2022-11-06 19:43 | ED.MALEGU ---
HPI - Male Genitourinary General Chief complaint: Urogenital-Male Stated complaint: UTI SYMPTOMS/L ELBOW SWELLING Time Seen by Provider: 11/06/22 19:30 Source: patient Mode of arrival: ambulatory Limitations: no limitations History of Present Illness HPI Narrative: Mr. Rodney is a 52-year-old paraplegic wheelchair-bound male patient presenting to the clinic today with complaints of possible UTI and left elbow swelling. Patient was previously admitted into the hospital for cellulitis of the left elbow and possible urinary tract infection. This course of admission was over October 21 to October 24. Patient self caths-has a neurogenic bladder and neurogenic bowel. He reports he is having some chills and some muscle aches. Also notes that his urine is cloudy and has an odor. His temperature is normally 97 and he is up to 98.9 ? F Related Data Allergies Allergy/AdvReac Type Severity Reaction Status Date / Time levofloxacin AdvReac Gastrointestinal Verified 11/06/22 19:34 Upset Review of Systems Review of Systems: Pertinent positives per HPI. Patient denies any fever, chills, rash, headache, visual changes, dizziness, cough, runny nose, sore throat, shortness of breath, chest pain, palpitations, nausea, vomiting, diarrhea, constipation, abdominal pain. [facility] Past Medical History Medical History Basal cell carcinoma (BCC) in situ of skin History of iron deficiency Incomplete quadriplegia due to spinal cord lesion between fifth and seventh cervical vertebra Melanoma in situ of back Neurogenic bladder Neurogenic bowel Right rotator cuff tear (~08/2017) Surgical History Surgical History History of repair of right rotator cuff History of reverse total replacement of right shoulder joint Initially performed January 2021 with revision in March 2021 Normal colonoscopy (10/2020) Performed by Dr. 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 He is dependent on wheelchair for mobilization. He is a lifelong nonsmoker. He used to drink 2 drinks a night on average but has not done so over the last year. He denies illicit substance use. He has 2 daughters. Smoking status: Never smoker Alcohol intake: former Drinks per week: 1 Substance use: never Lack of Transportation: No Lack of Food: Never True Current Housing: I Have Housing Concerned About Future Housing: No Difficulty Paying Gas/Electric Bills: No Difficulty Paying for Meds: No Currently Unemployed: No Education: Master's Degree or Higher Difficulty w/ Childcare or Family Care: No Living arrangements: alone Spiritual care concerns: No Comments At the time of my signature, I reviewed and agree with the nursing past medical, surgical, social, and family history. There is no relevant family history pertinent to the patient complaint. Exam Narrative: General: Well-developed, well nourished, in no apparent distress, [id number] Head: Normocephalic, atraumatic. Cardio: Regular rate and rhythm, s1 and s2 normal, no murmur appreciated. Resp: Clear to auscultation bilaterally, no rhonchi, rales, wheezing or rubs. Abdomen: Soft, pliable, bowel sounds present in all quadrants, no organomegly, Integumentary: [place], warm, and dry, intact without lesion, redness and swelling noted to the proximal posterior forearm-area measuring approximately 4 cm by 3 cm with induration without fluctuance Course Course Emergency Course: Portions of this record may have been created with voice recognition
== END 2022-11-06 20:05 | disposition home or self-care (01) ==
PROVIDERS: Emergency Provider Nurse Practitioner Family; PCP Internal Medicine
DX: N39.0 Urinary tract infection, site not specified (principal); L08.9 Local infection of the skin and subcutaneous tissue, unspecified; B96.89 Other specified bacterial agents as the cause of diseases classified elsewhere; N31.9 Neuromuscular dysfunction of bladder, unspecified; K59.2 Neurogenic bowel, not elsewhere classified; G82.54 Quadriplegia, C5-C7 incomplete; Z08 Encounter for follow-up examination after completed treatment for malignant neoplasm; Z85.820 Personal history of malignant melanoma of skin; Z85.828 Personal history of other malignant neoplasm of skin
CPT/HCPCS: 81003; 87077; 87086; 87088; 87186; 99213; G0463

== ENCOUNTER 2023-10-26 19:30 | Observation (INO) | payer BC, SELFPAY ==
--- NOTE | ~2023-10-26 | MR_ITS ---
EXAMINATION: MR abdomen wo/w con DATE: 10/28/2023 14:15 INDICATION: Left kidney mass. TECHNIQUE: Magnetic resonance imaging (MRI) of the abdomen was performed without and with 15 mL Multi Penny intravenous contrast. COMPARISON: CT abdomen and pelvis 10/26/23 FINDINGS: The liver, gallbladder, spleen, pancreas, and right adrenal gland are normal. There is a 13 mm mass i n left adrenal gland contains microscopic fat, consistent with an adenoma. There are cysts in the kid neys measuring up to 11 mm on the left. There is a 2.2 cm hemorrhagic cyst in left kidney. There are no dilated loops of bowel. There are no pathologically enlarged lymph nodes. There is no free intrape ritoneal fluid. IMPRESSION: 1. 2.2 cm hemorrhagic cyst in left kidney. 2. 13 mm left adrenal adenoma. Reviewed, dictated and finalized at location A.
--- NOTE | ~2023-10-26 | XR_ITS ---
Supine and upright views of the abdomen Clinical history: Nephrolithiasis Findings: Bowel gas pattern is nonspecific. No evidence for obstruction or free air. Cruz catheter i n place. Large ovoid urinary bladder stone present. Calcified pelvic phleboliths are present. Suspect ed right renal stones present. Osseous structures are intact. Impression: Probable right renal stone present. Large urinary bladder somewhat poorly catheter in place. Reviewed, dictated and finalized at location . Impression: Probable right renal stone present. Large urinary bladder somewhat poorly catheter in place.
--- NOTE | ~2023-10-26 | CT_ITS ---
CT of the Abdomen and Pelvis: Indication: Hematuria, back pain, UTI Technique: 2.5 mm axial scans were obtained through the abdomen and pelvis following intravenous adm inistration of 100 cc of Omnipaque 350. Dose reduction technique was used on this scan by utilizing a utomated exposure control and iterative reconstruction technique. The dose-length product (DLP) was 3 55.24 mGy-cm. Findings: Scans through the lung bases are unremarkable. The liver, spleen, pancreas, gallbladder, right adrenal gland are within normal limits. 1.6 cm left a drenal nodule is indeterminate. There is a 2.3 cm partially exophytic left lower pole renal mass, whi ch is not a simple cyst, and is therefore suspicious for renal cell carcinoma until proven otherwise. 9 mm nonobstructing right renal stone present. No evidence of aortic aneurysm. No lymphadenopathy. No bowel obstruction or bowel wall thickening. There is no evidence to suggest acute appendicitis. Images through the pelvis were performed. 3.4 x 1.5 cm oval urinary bladder stone present. There is m ild diffuse urinary bladder wall thickening. No pelvic mass seen otherwise. No ascites. 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 Impression: 2.3 cm suspected solid left lower pole renal mass, which is suspicious for renal cell carcinoma until proven otherwise. Pre and postcontrast CT or MR recommended to confirm solid enhancing lesion. 9 mm nonobstructing right renal stone. 3.4 x 1.7 cm urinary bladder stone. Mild diffuse urinary bladder wall thickening suggests cystitis. Indeterminate 1.6 cm left adrenal nodule. Consider follow-up MR to attempt to confirm benign adenoma. Reviewed, dictated and finalized at location . Impression: 2.3 cm suspected solid left lower pole renal mass, which is suspicious for maribell l cell carcinoma until proven otherwise. Pre and postcontrast CT or MR recommen ded to confirm solid enhancing lesion. 9 mm nonobstructing right renal stone. 3.4 x 1.7 cm urinary bladder stone. Mild diffuse urinary bladder wall thickening suggests cystitis. Indeterminate 1.6 cm left adrenal nodule. Consider follow-up MR to attempt to c onfirm benign adenoma.
[2023-10-26 19:32] VITALS: BP 112/82; PULSE 97; RESP 20; TEMP 36.7; O2SAT 99
[2023-10-26 20:40] LABS: Basophils Percent Auto 0.6 % (0.2-1.2); Eosinophils Absolute Auto 0.2 K/mm3 (0-0.3); Eosinophils Percent Auto 3.8 % (0-4.4); Hematocrit 39.6 % (42.0-52.0); Lymphocytes Absolute Auto 2.13 K/mm3 (0.9-3.2); Lymphocytes Percent Auto 42.5 % (18.3-44.2); Mean Corpuscular HGB Conc 32.8 g/dl (32-36); Mean Corpuscular Volume 85.2 fl (80-100); Mean Platelet Volume 8.8 fl (7.4-10.4); Monocytes Absolute Auto 0.6 K/mm3 (0.1-0.6); Monocytes Percent Auto 11.4 % (2.6-8.5); Neutrophils Absolute Auto 2.1 K/mm3 (1.3-6.7); Neutrophils Percent Auto 41.7 % (45.5-73.1); Platelet Count Result 218 k/mm3 (150-375); Red Blood Count 4.65 M/mm3 (4.6-6.20); Red Cell Distribution Width 17.5 % (11.5-14.5)
[2023-10-26 20:49] LABS: Alanine Aminotransferase 35 U/L (6-50); Albumin Level 4.3 g/dL (3.5-5.1); Alkaline Phosphatase 51 U/L (38-126); Anion Gap 10 mmol/L (4-12); Aspartate Amino Transferase 32 U/L (17-59); Bilirubin,Total 0.2 mg/dL (0.2-1.3); Blood Urea Nitrogen 26 mg/dL (9-20); Carbon Dioxide 26 mmol/L (22-30); Chloride 104 mmol/L (98-107); Estimated Glomerular Filt Rate > 60; Glucose 92 mg/dL (65-110); Sodium 140 mmol/L (137-145)
--- NOTE | 2023-10-26 21:44 | ED.MALEGU ---
HPI - Male Genitourinary General Chief complaint: Urogenital-Male <Jessa Alfaro PA-C - Last Filed: 10/27/23 01:40> Stated complaint: Hematuria <DANIEL Ralph Last Filed: 10/27/23 01:40> Time Seen by Provider: 10/26/23 20:58 <DANIEL Ralph Last Filed: 10/27/23 01:40> Source: patient <DANIEL Ralph Last Filed: 10/27/23 01:40> Mode of arrival: ambulatory <DANIEL Ralph Last Filed: 10/27/23 01:40> Limitations: no limitations <DANIEL Ralph Last Filed: 10/27/23 01:40> History of Present Illness HPI Narrative: This is a 53 year old male that presents to the ER for hematuria. Reports he was started on Cipro 2 days ago for a UTI. Reports he has continued to have some abdominal pain and back discomfort. Reports history of kidney stones. Reports chills. Denies fever, vomiting. <DANIEL Ralph Last Filed: 10/27/23 01:40> Related Data Allergies/Adverse reactions: Allergies Allergy/AdvReac Type Severity Reaction Status Date / Time levofloxacin AdvReac Gastrointestinal Verified 10/26/23 19:38 Upset <Jessa Alfaro PA-C - Last Filed: 10/27/23 01:40> Review of Systems Review of Systems: CONSTITUTIONAL: Denies fever GASTROINTESTINAL: Reports abdominal pain. Denies nausea, vomiting GENITOURINARY: Reports hematuria. <DANIEL Ralph Last Filed: 10/27/23 01:40> All systems reviewed & are unremarkable except as noted in HPI and below <DANIEL Ralph Last Filed: 10/27/23 01:40> PMFSH Past Medical History Medical History: Medical History Basal cell carcinoma (BCC) in situ of skin History of iron deficiency Incomplete quadriplegia due to spinal cord lesion between fifth and seventh cervical vertebra Melanoma in situ of back Neurogenic bladder Neurogenic bowel Right rotator cuff tear (~08/2017) <Jessa Alfaro PA-C - Last Filed: 10/27/23 01:40> Surgical History Surgical History: Surgical History History of repair of right rotator cuff History of reverse total replacement of right shoulder joint Initially performed January 2021 with revision in March 2021 Normal colonoscopy (10/2020) Performed by Dr. 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 He is dependent on wheelchair for mobilization. He is a lifelong nonsmoker. He used to drink 2 drinks a night on average but has not done so over the last year. He denies illicit substance use. He has 2 daughters. Smoking status: Never smoker Alcohol intake: former Drinks per week: 1 Substance use: never Do You Feel Safe in your Home?: Yes Lack of Transportation: No Lack of Food: Never True Current Housing: I Have Housing Concerned About Future Housing: No Difficulty Paying Gas/Electric Bills: No Difficulty Paying for Meds: No Currently Unemployed: No Education: Master's Degree or Higher Difficulty w/ Childcare or Family Care: No Living arrangements: alone Spiritual care concerns: No <DANIEL Ralph Last Filed: 10/27/23 01:40> Exam Narrative: GENERAL: Well-appearing, well-nourished, and in no acute distress. HEAD: Normocephalic, atraumatic. EYES: EOMI. CHEST: Clear to auscultation. No respiratory distress. No wheezes rales or rhonchi HEART: Regular rate and rhythm. No murmur heard. Normal peripheral pulses. ABDOMEN: S
[2023-10-26] MEDS: SODIUM CHLORIDE 0.9% IV 1,000 ML 999 ML IV CONT (22:22)
[2023-10-26 23:05] LABS: Add Urine Microscopic? YES; Appearance Urine Cloudy (Clear); Bacteria Urine None Seen /hpf; Bilirubin Urine Negative (Negative); Blood Urine 3+ (Negative); Color Urine Yellow (Yellow); Glucose Urine UA Negative (Negative); Ketones Urine Trace mg/dL (Negative); Leukocyte Esterase Ur 1+ LEU/UL (Negative); Need Manual Microscopic Reviewed; Nitrate Urine Negative (Negative); Non Pathogenic Casts 0-2; Protein Urine 3+ mg/dL (Negative); RBC Urine >100 /hpf (0-2); Specific Grav Ur 1.028 (1.001-1.035); Squamous Epithelial Cell Urine None Seen /hpf (Few); pH Urine 5.5 (5.0-9.0)
[2023-10-26 23:08] LABS: WBC Urine 16-20 /hpf (0-3)
[2023-10-27 00:59] VITALS: BP 126/72; PULSE 67; RESP 15; O2SAT 100
[2023-10-27] MEDS: CEFEPIME 2 GM/NS 50 ML 2 GM/50 ML BAG IVPB (01:21)
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
[2023-10-27] MEDS: ACETAMINOPHEN 500 MG TABLET 1000 MG PO ×3 (01:57→18:53)
[2023-10-27 02:59] VITALS: BP 134/84; PULSE 79; RESP 16; O2SAT 100
[2023-10-27 03:06] VITALS: BP 103/73; PULSE 90; RESP 16; TEMP 36.1; O2SAT 98
--- NOTE | 2023-10-27 04:15 | ADMGEN ---
This patient, Ion Rodney, was admitted to [facility] Surg Room 300-01. Patient/family oriented to hospital policies and general routines including ID bracelet, bed and alarms, visiting hours, pain management, procedures, bathroom and other care routines, personal items, smoking policy, room service/diet, and visiting hours. Information on how to activate the Rapid Response Team has been discussed. Patient/Family are encouraged to report perceived risks to care and to ask questions if they do not understand what they are told or what they should do.
[2023-10-27 05:37] VITALS: BP 119/66; PULSE 74; RESP 13; TEMP 36.3; O2SAT 97
[2023-10-27] MEDS: MEROPENEM 1 GM/NS 100 ML 1 GM/100 ML BAG IVPB (05:43)
[2023-10-27 06:21] LABS: Lactic Acid Reflex 0.9 mmol/L (0.7-2.0)
--- NOTE | 2023-10-27 07:17 | PM.IMPN ---
Progress Note: A&P Assessment and Plan (1) Renal mass: Code(s): N28.89 - Other specified disorders of kidney and ureter Status: Acute Assessment and Plan: - CT abdomen/pelvis: 2.3 cm suspected solid left lower pole renal mass, which is suspicious for renal cell carcinoma until proven otherwise. Pre and postcontrast CT or MR recommended to confirm solid enhancing lesion. Indeterminate 1.6 cm left adrenal nodule. Consider follow-up MR to attempt to confirm benign adenoma. - MRI abdomen ordered - Depending on imaging results will consult oncology (2) UTI (urinary tract infection): Code(s): N39.0 - Urinary tract infection, site not specified Status: Acute Assessment and Plan: - UA: cloudy appearance with 3+ protein, trace ketones, 3+ blood, 1+ leukocytes, >100 RBC, 16-20 WBC - UC obtained on 10/25: pending - Blood culture obtained on 10/25: pending - previous micro reviewed 11/06: enterobacter cloacae complex with Augmentin and cefazolin resistance - started on meropenem in the ED, transitioned to rocephin as patient has no prior resistance (3) Nephrolithiasis: Code(s): N20.0 - Calculus of kidney Status: Acute Assessment and Plan: Ct abdomen/pelvis: 9 mm nonobstructing right renal stone. 3.4 x 1.7 cm urinary bladder stone. Mild diffuse urinary bladder wall thickening suggests cystitis. KUB: Large ovoid urinary bladder stone present. Calcified pelvic phleboliths are present. Suspected right renal stones present. Osseous structures are intact. Urology consulted Once patient's urinary tract infection has been thoroughly treated we can plan cystoscopy with laser lithotripsy and extraction of his large bladder stone MRI scan kidneys with and without contrast. I may weight 48 hours to do this to avoid a 2nd contrast load and short-order (4) Bladder stone: Code(s): N21.0 - Calculus in bladder Status: Acute Assessment and Plan: Ct abdomen/pelvis: 9 mm nonobstructing right renal stone. 3.4 x 1.7 cm urinary bladder stone. Mild diffuse urinary bladder wall thickening suggests cystitis. KUB: Large ovoid urinary bladder stone present. Calcified pelvic phleboliths are present. Suspected right renal stones present. Osseous structures are intact. Urology consulted Once patient's urinary tract infection has been thoroughly treated we can plan cystoscopy with laser lithotripsy and extraction of his large bladder stone MRI scan kidneys with and without contrast. 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 Patient intermittently straight caths. Blood pressure on admission 98/62, remains stable. Time Spent With Patient Time with patient: 25 - 35 minutes Subjective Date/time seen: 10/27/23 07:17 Interval history: 53 year old male with past medical history of incomplete quadriplegia level C5-C7 since with transient hypotension, neurogenic bowel and bladder, hx of melanoma of the mid upper back in 2019 s/p removal who presented to the ER from home for hematuria, bladder spasms, and back pain. At time of admission patient was being treated for UTI on ciprofloxacin without relief. Patient is pleasant lying comfortably in bed. He states that he is feeling better since starting the antibiotics. He denies chest pain, shortness of breath, nausea/vomiting. He denies recent weight loss. Discussed the results of imaging with him and will obtain a MRI to further evaluate this renal mass. Depending on results will consult oncology. Patient had no questions at that time. Review of Systems Review of Systems: All systems reviewed & are unre
[2023-10-27 07:36] LABS: Alanine Aminotransferase 31 U/L (6-50); Albumin Level 3.6 g/dL (3.5-5.1); Alkaline Phosphatase 50 U/L (38-126); Anion Gap 11 mmol/L (4-12); Aspartate Amino Transferase 31 U/L (17-59); Bilirubin,Total 0.5 mg/dL (0.2-1.3); Blood Urea Nitrogen 21 mg/dL (9-20); Calcium 8.7 mg/dL (8.4-10.2); Carbon Dioxide 21 mmol/L (22-30); Chloride 107 mmol/L (98-107); Estimated Glomerular Filt Rate > 60; Glucose 102 mg/dL (65-110); Potassium 4.2 mmol/L (3.4-5.0); Sodium 139 mmol/L (137-145)
[2023-10-27 07:39] LABS: Basophils Percent Auto 0.6 % (0.2-1.2); Eosinophils Absolute Auto 0.2 K/mm3 (0-0.3); Eosinophils Percent Auto 4.3 % (0-4.4); Hematocrit 40.7 % (42.0-52.0); Hemoglobin 12.9 g/dL (14.0-18.0); Immature Granulocyte Absolute 0.07 K/mm3 (0.00-0.031); Immature Granulocyte Percent A 1.4 % (0-0.5); Lymphocytes Absolute Auto 1.88 K/mm3 (0.9-3.2); Lymphocytes Percent Auto 37.1 % (18.3-44.2); Mean Corpuscular HGB Conc 31.7 g/dl (32-36); Mean Corpuscular Hemoglobin 28.4 pg (26-34); Mean Corpuscular Volume 89.5 fl (80-100); Mean Platelet Volume 9.6 fl (7.4-10.4); Monocytes Absolute Auto 0.6 K/mm3 (0.1-0.6); Monocytes Percent Auto 12.2 % (2.6-8.5); Neutrophils Absolute Auto 2.3 K/mm3 (1.3-6.7); Neutrophils Percent Auto 44.4 % (45.5-73.1); Platelet Count Result 216 k/mm3 (150-375); Red Blood Count 4.55 M/mm3 (4.6-6.20); Red Cell Distribution Width 17.7 % (11.5-14.5); White Blood Count 5.1 K/mm3 (4.5-10.0)
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
[2023-10-27 14:00] VITALS: BP 140/82; PULSE 75; RESP 17; TEMP 36.3; O2SAT 100
[2023-10-27] MEDS: SODIUM CHLORIDE 0.9% IV 1,000 ML 125 ML IV CONT (17:00)
--- NOTE | 2023-10-27 19:10 | PHAR ---
ENEMEEZ (DOCUSATE 283 MG/5 ML) ENEMA VERIFIED BY PHARMACY
[2023-10-27 22:00] VITALS: BP 98/58; PULSE 81; RESP 16; TEMP 36.3; O2SAT 98
[2023-10-28] MEDS: ACETAMINOPHEN 500 MG TABLET 1000 MG PO (00:34)
[2023-10-28] MEDS: SODIUM CHLORIDE 0.9% IV 1,000 ML 125 ML IV CONT (00:36)
[2023-10-28 06:00] VITALS: BP 134/84; PULSE 78; RESP 16; TEMP 36.4; O2SAT 98
[2023-10-28 06:52] LABS: Basophils Percent Auto 0.7 % (0.2-1.2); Eosinophils Absolute Auto 0.2 K/mm3 (0-0.3); Hematocrit 40.5 % (42.0-52.0); Hemoglobin 13.1 g/dL (14.0-18.0); Immature Granulocyte Absolute 0.01 K/mm3 (0.00-0.031); Immature Granulocyte Percent A 0.2 % (0-0.5); Lymphocytes Absolute Auto 1.91 K/mm3 (0.9-3.2); Lymphocytes Percent Auto 43.8 % (18.3-44.2); Mean Corpuscular HGB Conc 32.3 g/dl (32-36); Mean Corpuscular Hemoglobin 27.9 pg (26-34); Mean Corpuscular Volume 86.4 fl (80-100); Mean Platelet Volume 9.1 fl (7.4-10.4); Monocytes Absolute Auto 0.4 K/mm3 (0.1-0.6); Monocytes Percent Auto 10.1 % (2.6-8.5); Neutrophils Absolute Auto 1.8 K/mm3 (1.3-6.7); Neutrophils Percent Auto 40.2 % (45.5-73.1); Platelet Count Result 202 k/mm3 (150-375); Red Blood Count 4.69 M/mm3 (4.6-6.20); Red Cell Distribution Width 17.5 % (11.5-14.5); White Blood Count 4.4 K/mm3 (4.5-10.0)
[2023-10-28 07:02] LABS: Alanine Aminotransferase 27 U/L (6-50); Albumin Level 3.6 g/dL (3.5-5.1); Alkaline Phosphatase 54 U/L (38-126); Anion Gap 9 mmol/L (4-12); Aspartate Amino Transferase 24 U/L (17-59); Bilirubin,Total 0.4 mg/dL (0.2-1.3); Blood Urea Nitrogen 12 mg/dL (9-20); Calcium 8.5 mg/dL (8.4-10.2); Carbon Dioxide 24 mmol/L (22-30); Chloride 106 mmol/L (98-107); Estimated Glomerular Filt Rate > 60; Glucose 98 mg/dL (65-110); Potassium 3.6 mmol/L (3.4-5.0); Sodium 139 mmol/L (137-145)
--- NOTE | 2023-10-28 07:05 | PM.IMPN ---
Progress Note: A&P Assessment and Plan (1) Renal mass: Code(s): N28.89 - Other specified disorders of kidney and ureter Status: Acute Assessment and Plan: - CT abdomen/pelvis: 2.3 cm suspected solid left lower pole renal mass, which is suspicious for renal cell carcinoma until proven otherwise. Pre and postcontrast CT or MR recommended to confirm solid enhancing lesion. Indeterminate 1.6 cm left adrenal nodule. Consider follow-up MR to attempt to confirm benign adenoma. - MRI abdomen ordered - Depending on imaging results will consult oncology (2) UTI (urinary tract infection): Code(s): N39.0 - Urinary tract infection, site not specified Status: Acute Assessment and Plan: - UA: cloudy appearance with 3+ protein, trace ketones, 3+ blood, 1+ leukocytes, >100 RBC, 16-20 WBC - UC obtained on 10/25: pending - Blood culture obtained on 10/25: pending - previous micro reviewed 11/06: enterobacter cloacae complex with Augmentin and cefazolin resistance - started on meropenem in the ED, transitioned to rocephin as patient has no prior resistance (3) Nephrolithiasis: Code(s): N20.0 - Calculus of kidney Status: Acute Assessment and Plan: Ct abdomen/pelvis: 9 mm nonobstructing right renal stone. 3.4 x 1.7 cm urinary bladder stone. Mild diffuse urinary bladder wall thickening suggests cystitis. KUB: Large ovoid urinary bladder stone present. Calcified pelvic phleboliths are present. Suspected right renal stones present. Osseous structures are intact. Urology consulted Once patient's urinary tract infection has been thoroughly treated we can plan cystoscopy with laser lithotripsy and extraction of his large bladder stone (4) Bladder stone: Code(s): N21.0 - Calculus in bladder Status: Acute Assessment and Plan: Ct abdomen/pelvis: 9 mm nonobstructing right renal stone. 3.4 x 1.7 cm urinary bladder stone. Mild diffuse urinary bladder wall thickening suggests cystitis. KUB: Large ovoid urinary bladder stone present. Calcified pelvic phleboliths are present. Suspected right renal stones present. Osseous structures are intact. Urology consulted Once patient's urinary tract infection has been thoroughly treated we can plan cystoscopy with laser lithotripsy and extraction of his large bladder stone MRI scan kidneys with and without contrast. 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 Patient intermittently straight caths. Blood pressure on admission 98/62, remains stable. Subjective Date/time seen: 10/28/23 07:05 Interval history: 53 year old male with past medical history of incomplete quadriplegia level C5-C7 since with transient hypotension, neurogenic bowel and bladder, hx of melanoma of the mid upper back in 2019 s/p removal who presented to the ER from home for hematuria, bladder spasms, and back pain. At time of admission patient was being treated for UTI on ciprofloxacin without relief. Patient is pleasant lying in bed. He has no complaints at this time, denying chest pain, shortness of breath, nausea/vomiting and abdominal pain. His urine culture was negative and antibiotics were discontinued. Review of Systems Review of Systems: All systems reviewed & are unremarkable except as noted in HPI and below Exam Narrative: AF HR General: well nourished, well-developed male in no acute respiratory distress who is nontoxic appearing, lying semi recumbent in bed. HEENT: Normocephalic. Atraumatic. Extraocular movement intact. Sclera clear and anicteric. No facial asymmetry. Chest: Lungs are clear to auscultation b
--- NOTE | 2023-10-28 09:14 | WPDUROPN2 ---
Progress Note: A&P Assessment and Plan (1) Bladder stone: Code(s): N21.0 - Calculus in bladder Status: Acute (2) UTI (urinary tract infection): Code(s): N39.0 - Urinary tract infection, site not specified Status: Acute (3) Renal mass: Code(s): N28.89 - Other specified disorders of kidney and ureter Status: Acute Assessment and Plan: Once patient's urinary tract infection has been thoroughly treated we can plan cystoscopy with laser lithotripsy and extraction of his large bladder stone Plan for MRI with and without contrast to further evaluate indeterminate left renal mass, scheduled for tomorrow a.m. to avoid 2nd contrast load Continue Cruz catheter at this time. Plan for removal prior to discharge and resume intermittent catheterization Final urine culture with no growth. Preliminary blood cultures negative to date Subjective Subjective Date/Time Seen: 10/28/23 09:14 Interval history: Ion is doing well today. Tolerating Cruz catheter without difficulty and reports no concerns. Tolerating his diet. Review of Systems Review of Systems: All systems reviewed & are unremarkable except as noted in HPI and below Exam Narrative: General: Awake, alert, comfortable, no acute distress HEENT: Normocephalic, atraumatic, sclerae anicteric Respiratory: Normal respiratory effort, no accessory muscle use Abdomen: Nondistended, soft, nontender : Cruz catheter draining clear yellow urine Skin: Normal coloration, warm and dry Extremities: Quadriplegic Neurologic: No focal neuro deficits noted Psychiatric: Appropriate mood and affect, judgment and insight intact Objective Data Vital Signs Vital Signs: Vital Signs - 24 hr 10/27/23 14:00 10/27/23 22:00 10/28/23 06:00 Temperature 97.4 F L 97.4 F L 97.6 F Pulse Rate 75 81 78 Respiratory Rate 17 16 16 Blood Pressure 140/82 98/58 L 134/84 Pulse Oximetry 100 98 98 Intake/Output Intake/Output: Intake & Output 10/25/23 10/26/23 10/27/23 10/28/23 23:59 23:59 23:59 23:59 Intake Total 1580 1600 Output Total 1400 Balance 180 1600 Meds/Results Medications: Active Medications Generic Name Dose Route Start Last Admin Trade Name Freq PRN Reason Stop Dose Admin Acetaminophen 1,000 mg 10/27/23 05:27 10/28/23 00:34 Acetaminophen 500 Mg Tablet PO 1,000 mg Q6H PRN Administration Mild Pain (1-3) or Fever Al Hydrox/Mg Hydrox/Simethicone 30 ml 10/27/23 05:27 Mag Hydrox/Al Hydrox/Simeth 30 Ml Udc PO Q6H PRN Indigestion Enoxaparin Sodium 40 mg 10/28/23 09:00 Enoxaparin 40 Mg/0.4 Ml Syringe SUB-Q DAILY CHRIS Sodium Chloride 1,000 mls @ 125 mls/hr 10/27/23 01:40 10/28/23 00:36 Normal Saline Iv IV CONT 125 mls/hr .Q8H CHRIS Administration Ceftriaxone Sodium 1 gm in 50 mls @ 100 mls/hr 10/27/23 09:00 10/28/23 08:10 Rocephin 1 Gm/Ns 50 Ml IVPB 100 mls/hr Q24H CHRIS Administration Ondansetron HCl 4 mg 10/27/23 05:27 Ondansetron Inj 4 Mg/2 Ml Vial IV PUSH Q6H PRN Nausea And Vomiting Polyethylene Glycol 17 gm 10/27/23 05:27 Polyethylene Glycol 3350 17 Gm Powd.Pack PO QAM PRN Constipation Radiology Results: ITS Impressions Abdomen/Pelvis CT 10/27/23 06:40 Impression: 2.3 cm suspected solid left lower pole renal mass, which is suspicious for renal cell carcinoma until proven otherwise. Pre and postcontrast CT or MR recommended to confirm solid enhancing lesion. 9 mm nonobstructing right renal stone. 3.4 x 1.7 cm urinary bladder stone. Mild diffuse urinary bladder wall thickening suggests cystitis. Indeterminate 1.6 cm left adrenal nodule. Consider follow-up MR to attempt to confirm benign adenoma. Abdomen X-Ray 10/27/23 12:01 Impression: Probable right renal stone present. Large urinary bladder somewhat poorly catheter in place. Labs Labs: Laboratory Results - last 24 hr
--- NOTE | 2023-10-28 14:37 | PM.DS ---
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 At time of admission patient was being treated for UTI on ciprofloxacin without relief. On arrival patients vitals were stable and he was without leukocytosis on labs. Urinalysis showed cloudy appearance with 3+ protein, trace ketones, 3+ blood, 1+ leukocytes, >100 RBC, 16-20 WBC. Patient started on antibiotics at that time. Urine culture was negative, however patient remains on oral antibiotics to complete course given that he was symptomatic and improved with treatment. A CT abdomen/pelvis was obtained and showed 2.3 cm suspected solid left lower pole renal mass, which is suspicious for renal cell carcinoma until proven otherwise and indeterminate 1.6 cm left adrenal nodule. Consider follow-up MR to attempt to confirm benign adenoma. MRI showed 2.2 cm hemorrhagic cyst in left kidney and 13 mm left adrenal adenoma. CT abdomen/pelvis also showed 9 mm nonobstructing right renal stone, 3.4 x 1.7 cm urinary bladder stone, and mild diffuse urinary bladder wall thickening suggests cystitis. Urology was consulted and a KUB was obtained. KUB showed large ovoid urinary bladder stone present, calcified pelvic phleboliths are present and suspected right renal stones present with osseous structures are intact. Urology states that once patient's urinary tract infection has been thoroughly treated we can plan cystoscopy with laser lithotripsy and extraction of his large bladder stone. Patient aware of plan at time of discharge. Prior to discharge patient denies chest pain, shortness of breath, nausea/vomiting and states that his urinary symptoms are improving. Patient discharged home in stable condition. He is to continue his antibiotics as prescribed. He is to follow up with his PCP and urology as scheduled. He is to continue straight cathing as needed. Status at Discharge Functional status at discharge: wheelchair bound Time Spent with Patient Time attestation: Total time spent providing and/or coordinating discharge services: Time spent: Greater than 30 minutes Exam Narrative: AF HR 78 RR 16 SpO2 98 BP 134/84 General: male in no acute respiratory distress who is nontoxic appearing, lying semi recumbent in bed. HEENT: Normocephalic. Atraumatic. Extraocular movement intact. Sclera clear and anicteric. No facial asymmetry. Chest: Lungs are clear to auscultation bilaterally. No wheezes or crackles. CV: Heart was regular rate and rhythm. S1/S2. No murmurs, gallops, or rubs. Abd: Abdomen was soft. Nontender. Nondistended. Positive bowel sounds. No organomegaly or masses. DS: Data Data Completed and Pending Completed studies during hospitalization: Abdomen MRI Abdomen XR
--- NOTE | 2023-10-29 10:53 | PC.NURSE ---
Documentation under the name of Alethea Estrada on 10/28/23 from [id number] was done by Sherri Wolff. Signing out and logging in was not done correctly at shift change.
== END 2023-10-28 15:40 | disposition home or self-care (01) ==
LOC: ANHED 10-27 01:34 → ANH3MEDSUR 10-27 03:01
PROVIDERS: Emergency Medicine; Admitting Provider Internal Medicine; Emergency Provider Physician Assistant; PCP Internal Medicine; Visit Provider Student in an Organized Health Care Education/Training Program
DX: N28.89 Other specified disorders of kidney and ureter (principal); N21.0 Calculus in bladder; N20.0 Calculus of kidney; G82.54 Quadriplegia, C5-C7 incomplete; N31.9 Neuromuscular dysfunction of bladder, unspecified; K59.2 Neurogenic bowel, not elsewhere classified; Z85.820 Personal history of malignant melanoma of skin; Z98.1 Arthrodesis status; Z99.3 Dependence on wheelchair
CPT/HCPCS: 36415; 74018; 74177; 74183; 80053; 81001; 83605; 85025; 87040; 87086; 96361; 96365; 96366; 96367; 96375; 99285; A9270; A9577; G0378; J0692; J0696; J1650; J2185; J7030; Q9967

== ENCOUNTER 2023-11-07 01:33 | Day surgery (SDC) | payer BC, SELFPAY ==
[2023-10-31 11:23] VITALS: BMI 21.6
--- NOTE | 2023-10-31 11:24 | PC.NURSE ---
Report to the Outpatient Waiting Room, entrance under the green pavilion located off [facility], at time _1130_ on date _[id number]_. Planned Procedure Time: _130pm_.? Time changes happen often and if your time is changed the preop area will call you the afternoon before. - You and your visitor will be asked to self-screen and do not enter if you have any COVID symptoms. Please call surgeon if you need to reschedule. - A mask is optional within the hospital at this time. Patients may have clear liquids (water, carbonated beverages, clear teas, apple juice) until 3 hours prior to surgery with a maximum of 20 ounces. - No food from midnight until time of surgery and no smoking Take only the following medications with a SIP of water on the morning of surgery: ___None DO NOT STOP ANY OF YOUR OTHER PRESCRIPTION MEDICATIONS PRIOR TO SURGERY EXCEPT THE FOLLOWING Medications to discontinue per physician ____None Please no make-up, nail greenlandic, hairspray, perfume, deodorant, or body powder the day of surgery.? No jewelry (including any body piercings) or valuables the day of surgery, leave them at home.? Please take a shower or bath the night before, or the morning of, surgery with an antibacterial soap.? Wear comfortable, loose fitting clothing.? - Jewelry must be removed prior to entering the operating room.? Rings and piercings that are not removed may be cut off. - The hospital will not accept responsibility for valuables.? - Please leave all valuables, including medications, at home the day of surgery. If you are going home after surgery, a licensed haul truck driver must drive you home.? - NO public transportation without another adult if you receive anesthesia. - We recommend that an adult stay with you for 24 hours following discharge. - We also recommend that you do not drive, make important decision, drink alcoholic beverages, or take any drugs that were not prescribed by your health care provider for at least 24 hours after your discharge time. Follow any additional instructions given to you from your surgeon. Telephone instructions given to __David___and asked if any additional questions and then verbalized understanding. Patient advised to call surgeon office or pre surgery nurse liaison [phone] if any additional questions.
[2023-11-07] VITALS (8 sets, daily range): BP systolic 100–139; BP diastolic 66–98; PULSE 50–98; RESP 12–22; TEMP 36.3–36.4; O2SAT 98–100
--- NOTE | 2023-11-07 06:45 | WPDHPUPDATE1 ---
History and Physical Update Update Date/Time: 11/07/23 06:45 History and Physical has been reviewed, including an updated exam of the patient. There are NO changes in the patient's condition. Risks, benefits, and alternatives have been discussed and questions answered. Patient agrees to proceed with procedure.
--- NOTE | 2023-11-07 12:29 | WPDANESEPPF ---
Anes - Initial Pre Proc Eval Procedure: Operation Date: 11/07/23 13:30 Proposed Procedures p Laser Lithotripsy of Bladder Stone - Robin Arias MD Date/Time: 11/07/23 12:29 Surgeon: Robin Arias MD Pre Op Diagnosis: bladder stone Patient Data Age: 53 Gender: M Height: 1.8 m Weight: 69 kg Last Vital Signs Temp 36.3 C L 11/07/23 12:26 Pulse 88 11/07/23 12:26 Resp 18 11/07/23 12:26 BP 100/80 11/07/23 12:26 Pulse Ox 98 11/07/23 12:26 O2 Del Method Room Air 11/07/23 12:26 Allergies Allergy/AdvReac Type Severity Reaction Status Date / Time levofloxacin AdvReac Gastrointestinal Verified 11/07/23 12:25 Upset Home Medications Medication Instructions Recorded Confirmed Type Compression Stockings #1 ea 06/25/23 10/27/23 Rx amoxicillin 875 mg-potassium 1 tablet PO Q12H #10 tabs 10/28/23 11/07/23 Rx clavulanate 125 mg tablet Patient hx anesthesia problems: none Family hx anesthesia problems: none Results Review: All pre-operative results and documents have been reviewed as part of the pre-operative evaluation. 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 He lives alone. He is dependent on wheelchair for mobilization. He is a lifelong nonsmoker. He used to drink 2 drinks a night on average but has not done so over the last year. He denies illicit substance use. He has 2 daughters. Smoking status: Never smoker Alcohol intake: former Drinks per week: 1 Substance use: never Do You Feel Safe in your Home?: Yes Lack of Transportation: No Lack of Food: Never True Current Housing: I Have Housing Concerned About Future Housing: No Difficulty Paying Gas/Electric Bills: No Difficulty Paying for Meds: No Currently Unemployed: No Education: Master's Degree or Higher Difficulty w/ Childcare or Family Care: No Living arrangements: with family Spiritual care concerns: No Anes - Eval Final PreProcedure Day of Procedure 11/07/23 12:29 Patient weight: normal Heart: regular rate and rhythm Lungs: clear to auscultation Airway: Mallampati scale class II Neurological: alert and oriented Last oral intake: >/= 8 hours ASA classification: III Emergent: no Anesthetic plan: proceed Anesthesia type and monitoring: general LMA and standard monitoring Results Review: All pre-operative results and documents have been reviewed as part of the pre-operative evaluation. Informed Consent: The patient's anesthetic plan and its attendant risks and benefits were discussed with the patient/family/POA. Questions were solicited and answers provided to the satisfaction of the patient/family/POA.
[2023-11-07] MEDS: LACTATED RINGERS 1,000 ML 30 ML IV CONT (12:30)
[2023-11-07] MEDS: ceFAZolin 2 GM/D5W 50 ML 2 GM/50 ML BAG IVPB (13:05)
--- NOTE | 2023-11-07 14:03 | W.PM.PROC2 ---
Procedure Note - Detailed Date of Procedure 11/07/23 Pre-op Diagnosis Large bladder stone Post-op Diagnosis Same Procedure Performed Laser lithotripsy with extraction large bladder stone Surgeon Robin Arias MD Anesthesia General Description of Procedure Patient is brought to the operative suite was prepped draped in routine sterile fashion while in dorsal lithotomy position after the uneventful induction of a general LMA anesthetic. Cystoscopy was undertaken with a 19 F rigid cystoscope. With care taken to avoid any overdistention of his bladder that may precipitate autonomic does reflect episodes we used a 550 micron [employer] laser fiber to break his large bladder stone and attempt tiny pieces. All pieces were evacuated with an [employer] evacuator. There was no compromise to the integrity of his bladder wall. I did leave a 16 F coude catheter to drainage the termination. Drains Yes Packing No Pathology Yes Complications No immediate complications Condition Stable
--- NOTE | 2023-11-07 15:16 | SUR.PHASEII ---
MD Arias contacted - Pt prefers to remove clark catheter and D/C home straight catheterizing. Pt straight caths at baseline. RN Okay to discontinue clark catheter prior to discharge per MD Arias. Pt ok to straight cath at home. Education provided to pt.
--- NOTE | 2023-11-07 15:36 | SUR.PHASEII ---
Cruz catheter removed and intact per MD Arias order.
== END 2023-11-07 15:50 | disposition home or self-care (01) ==
PROVIDERS: PCP Internal Medicine; Visit Provider Urology
PROC: (CPT 52352; principal; 2023-11-07 13:30)
DX: N21.0 Calculus in bladder (principal); E61.1 Iron deficiency; G82.54 Quadriplegia, C5-C7 incomplete; N31.9 Neuromuscular dysfunction of bladder, unspecified; K59.2 Neurogenic bowel, not elsewhere classified; Z98.890 Other specified postprocedural states; Z98.1 Arthrodesis status; Z85.820 Personal history of malignant melanoma of skin; Z85.828 Personal history of other malignant neoplasm of skin; Z80.0 Family history of malignant neoplasm of digestive organs
CPT/HCPCS: 52317; 82365; 88300; C1769; J0690; J1100; J2405; J2704; J3010; J7120

== ENCOUNTER 2024-11-19 15:47 | Emergency (ER) | payer BC, SELFPAY ==
--- NOTE | ~2024-11-19 | XR_ITS ---
EXAMINATION: XR elbow RT min 3V, 11/19/2024 17:02 CDT HISTORY: Redness swelling COMPARISON: No comparisons available. Findings: No acute fracture or malalignment. No significant degenerative changes. Soft tissues unremarkable. Impression: No acute fracture or malalignment. Reviewed, dictated and finalized at location P. Impression: No acute fracture or malalignment.
--- OUTSIDE RECORDS SUMMARY | 2024-11-19 15:50 | XMS_ITS | Encounter Summary ---
Author Organization [facility] Address [address] [place] [address] Care Team Providers Care Pullman Car Clerk Name Role Phone Valentin Tello MD Primary Care Provider [phone] [place], Bina DELI WORKER Unavailable [phone] Encounter Details Date Type Department Care Team (Late st Contact Info) Description 08/12/2014 Therapy Visit EXTERNAL NON-[facility] DEPT Unknown, Provider Social History Tobacco Use Types Packs/Day Years Used Date Smoking Tobacco: Never Alcohol Use Standard Drinks/Week Comments Yes 0 (1 standard drink = 0.6 oz pur e alcohol) once a week Sex and Gender Information Value Date Recorded Sex Assigned at Not on file Legal Sex 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 Answer Date of Assessment Author No 04/16/2014 10:06 AM Danilo Roberts RN * Is person blind or have serious difficulty seeing? Answer Date of Assessment Author No 03/04/2014 8:52 PM Susan Oseguera RN * Does person have serious difficulty walking/climbing stairs? Answer Date of Assessment Author Yes 04/16/2014 10:06 AM Danilo Roberts RN * Does person have difficulty dressing/bathing? Answer Date of Assessment Author Yes 04/16/2014 10:06 AM Danilo Roberts RN * Does person have difficulty doing errands alone? Answer Date of Assessment Author No 04/16/2014 10:06 AM Danilo Roberts RN documented as of this encounter Mental Status * Does person have difficulty concentrating/remembering/making decisions? Answer Entry Date Author No 04/16/2014 10:06 AM ELLI Quiles, As hernandez Ascencio RN documented in this encounter Plan of Treatment Not on file documented as of this encounter Visit Diagnoses Not on filedocumented in this encounter Care Teams Pullman Car Clerk Relationship Specialty Start Date End Date Valentin Tello MD PCP - General Endocrinology 03/04/14 Bina Carranza MSW [facility] [employer] [facility] 03/08/14 documented as of this encounter
--- OUTSIDE RECORDS SUMMARY | 2024-11-19 15:50 | XMS_ITS | Clinical Summary ---
Author Organization [facility] Address [address] [place] [address] Care Team Providers Care Central Supply Supervisor Name Role Phone Ion Murcia DO Primary Care Provider [phone] Valentin Martinez PT Unavailable Allergies Active Allergy Reactions Criticality Noted Date Comments Levofloxacin Stomach upset Low 08/08/2015 Medications ascorbic acid (VITAMIN C) 1,000 mg tabletIndicatio ns:Vitamin C Deficiency Take 1 tablet (1,000 mg total) by mouth 2 (two) times a day Active aspirin 81 mg enteric coated tabletIndicatio ns:Deep Vein Thrombosis Prevention Take 1 tablet (81 mg total) by mouth 2 (two) times a day for 14 days 28 tablet 03/03/2021 Active cephalexin (KEFLEX) 500 mg capsuleIndicati ons:Urinary Tract/Genitouri nary Infection Take 1 capsule (500 mg total) by mouth 3 (three) times a day for 10 days 30 capsule 10/26/2024 11/06/19 25 Active Problems Problem Noted Date Diagnosed Date 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 Will place on tele as that is reason for transfer to medicine bed. -Changes possibly lead placement as patient states he was sitting in wheelchair for initial ekg. Regardless, pt denies any anginal symptoms, syncope, presyncope and troponin neg X 2. Fascicular block in of itself is nonspecific finding in setting of asymptomatic patient. Ureteral stone with hydronephrosis 10/12/2017 Overview (10/12/2017): Added automatically from request for surgery [id number] Assessment & Plan (10/13/2017 3:48 AM CDT): -UTI in setting of obstructing stone. -Urology with plan to take to OR in morning or sooner if febrile/clinical change -f/u urine cx -cont flomax, cipro -clark Sprain of rotator cuff capsule 11/05/2013 Arthralgia of shoulder 06/30/2013 Encounters Date Type Department Care Team Description 10/26/2024 11:20 PM CDT - 10/26/2024 11:21 PM CDT Emergency [facility] Emergency Department [address] [place] [address] Brad Jacob MD Urinary retention (Primary Dx) Discharge Disposition: Discharge to home or self care from Last 3 Months Surgical History Surgery Date Site/Laterality Comments ROTATOR CUFF REPAIR 02/18/2014 - 02/17/2015 TOTAL SHOULDER ARTHROPLASTY 02/19/2020 - 02/17/2021 URETERAL STENT PLACEMENT 02/18/2017 - 02/17/2018 CERVICAL FUSION 02/18/1989 - 02/17/1990 SHOULDER ARTHROSCOPY 02/19/2016 - 02/17/2017 Medical History Medical History Date Comments Hx Other Medical 1989 c 6-7 fusion; C omments: APO 12/04/2013 - Quadriplegia, C5-C7, incomplete (HCC) Family History Medical History Relation Name Comments Colon cancer Other 1 Family history of Cancer, colon; Coronary artery disease Other 2 Fami ly history of Coronary artery disease; Anesthesia problems Neg Hx Relation Name Status Comments Father Alive Mother Alive Other 1 Other 2 Social History Tobacco Use Types Packs/Day Years Used Date Smoking Tobacco: Never Smokeless Tobacco: Never Alcohol Use Standard Drinks/Week Comments Yes 0 (1 standard drink = 0.6 oz pur e alcohol) occassionally AUDIT-C Answer Date Recorded Q1: How often do you have a drink containing alc ohol? 2-4 times a month 03/02/2021 Q2: How many drinks containi ng alcohol do you have on a typical day when you are drinking? 1 or 2 03/02/2021 Q3: How often do you have si x or more drinks on one occasion? Never 03/02/2021 Personal Safety Answer Date Recorded Have you ever been in or are you currently in a harmful physical or emotional relationship or is someone making you feel afraid or unsafe? Denies 10/26/2024 Sex and Gender Information Value Date Recorded Sex Assigned at Not on file Legal Sex Male 2:33 AM SKIN CARVER Gender Identity Male 02/13/2021 11:12 AM SKIN CARVER Sexual Orientation Straight 02/13/2021 11 :12 AM SKIN CARVER Obstetrics History Last Filed Vital Signs Vital Sign Reading Time Taken Comments Blood Pressure 122/78 10/26/2024 11:15 PM CDT Pulse 65 10/26/2024 11:15 PM CDT Temperature 36.6 C (97.8 F) 10/26/2024 8:32 PM CDT Respiratory Rate 18 10/26/2024 11:15 PM CDT Oxygen Saturation 99% 10/26/2024 11:15 PM CDT Inhaled Oxygen Concentration - - Weight 68.9 kg (152 lb) 10/26/2024 8:32 PM CDT Height 180.3 cm (5' 11) 10/26/2024 8:32 PM CDT Body Mass Index 21.2 10/26/2024 8:32 PM CDT Plan of Treatment Health Maintenance Due Date Last Done Comments Colon Cancer Screening-Colonoscopy 1969 Depression Screening 1969 Hepatitis C Screening 1969 Prostate Cancer Screening-PSA 1969 DTaP/Tdap/Td Vaccine (1 - Tdap) 1980 Hepatitis B Screening 06/13/1987 Regular Well Visit/Exam 18-64 06/13/1987 Zoster Vaccine (1 of 2) 06/13/2019 Covid-19 Vaccine (3 - 2024-2 6 season) 2024 05/30/2020, 05/02/2020 Influenza Vaccine (#1) 2024 Pneumococcal vaccine <65 Aged Out No longer eligible based on patient's age to complete this topic Medical Devices Implanted Type Area Electric Organ Inspector And Repairer Device Identifier Shelf Expiration Date Model / Serial / Lot Tornier Inc [id number] Tornier Aequalis Perform Od29 Mm Lateralize Augment Reverse Shoulder +3 Mm Baseplate Glenoid - [id number] - [id number] Implanted:Qty: 1 on 01/20/2021 by Darci Bermeo MD at [facility] Plate Right: Arm [employer] [id number] 12/23/2024 [id number] / [id number] / [id number] ralali Medical Inc [id number] Universa 6fr 24cm Radiopaque Positioner Furniture Shampooer Braid Tether - [id number] Implanted:Qty: 1 on 10/23/2017 by Js Dsouza MD at [facility] Stent Right: Ureter ralali Medical Inc [id number] 09/19/2019 [id number] / / [id number] Cresta[employer] Inc [id number] Aequalis Perform 7mm Reverse Screw Bone Sterile Latex Free - [id number] - [id number] Implanted:Qty: 1 on 01/20/2021 by Darci Bermeo MD at [facility] Right: Arm [employer] [id number] 09/07/2025 [id number] / [id number] / [id number] Tornier Inc Cni121 Aequalis Perform Reversed Od5 Mm L46 Mm Peripheral Glenoid Screw Baseplate Nonsterile - [id number] Implanted:Qty: 1 on 01/20/2021 by Darci Bermeo MD at [facility] Right: Arm [employer] [id number] / / Tornier Inc [id number] Aequalis Perform Reversed 5mm 22mm Peripheral Glenoid Screw - [id number] Implanted:Qty: 1 on 01/20/2021 by Darci Bermeo MD at [facility] Right: Arm Hameed [employer] Inc [id number] / / Tornier Inc [id number] Aequalis Perform Reversed 5mm 26mm Peripheral Glenoid Screw - [id number] Implanted:Qty: 1 on 01/20/2021 by Darci Bermeo MD at [facility] Right: Arm B[employer]est [employer] Inc [id number] / / Tornier Inc [id number] Aequalis Perform Reversed 5mm 34mm Peripheral Glenoid Screw - [id number] Implanted:Qty: 1 on 01/20/2021 by Darci Bermeo MD at [facility] Right: Arm [employer] Inc [id number] / / Smooth Biomet Inc [id number] 14mm 130mm Shoulder Stem Humeral Trabecular Metal Tivanium - [id number] - [id number] Implanted:Qty: 1 on 01/20/2021 by Darci Bermeo MD at [facility] Right: Arm [employer] [id number] 10/01/2030 [id number] / [id number] Smooth [employer] Inc [id number] 14mm 130mm Shoulder Stem Humeral Trabecular Metal Tivanium - [id number] - [id number] Implanted:Qty: 1 on 01/20/2021 by Darci Bermeo MD at [facility] Right: Arm [employer] [id number] 10/01/2030 [id number] / [id number] Tornier Inc [id number] Tornier Aequalis Perform Od39 Mm Lateralize Reverse Shoulder +3 Mm Sphere Glenoid - [id number] - [id number] Implanted:Qty: 1 on 03/02/2021 by Darci Bermeo MD at [facility] Right: Shoulder 20:20 Mobile [employer] Inc [id number] 04/29/2025 [id number] / [id number] / Smooth Biomet Inc [id number] 40mm H+0mm Reverse Retentive Humerus 12d 65d Liner Shoulder - [id number] Implanted:Qty: 1 on 03/02/2021 by Darci Bermeo MD at [facility] Right: Shoulder [employer] Inc [id number] 04/18/2023 [id number] / / [id number] Smooth [employer] Inc [id number] Reverse Shoulder 12d +12mm Spacer Humeral Trabecular Metal Latex Free - [id number] Implanted:Qty: 1 on 03/02/2021 by Darci Bermeo MD at [facility] Right: Shoulder [employer] [id number] 09/05/2030 [id number] / / [id number] Explanted Type Area Electric Organ Inspector And Repairer Device Identifier Shelf Expiration Date Model / Serial / Lot Smooth Biomet Inc [id number] Reverse Shoulder 12d +9mm Spacer Humeral Trabecular Metal Sterile Latex Free - [id number] - [id number] Implanted:Qty: 1 on 01/20/2021 by Darci Bermeo MD at [facility] Explanted:Qty: 1 on 03/02/2021 by Darci Bermeo MD at [facility] Right: Arm [employer] Inc [id number] 05/18/2029 [id number] / [id number] / [id number] Description:Implant thrown i n trash after explanted from patient Smooth [employer] Inc [id number] 40mm H+0mm Reverse Humerus 7d Standard Liner Shoulder Trabecular - [id number] - [id number] Implanted:Qty: 1 on 01/20/2021 by Darci Bermeo MD at [facility] Explanted:Qty: 1 on 03/02/2021 by Darci Bermeo MD at [facility] Right: Arm [employer] Inc [id number] 12/18/2021 [id number] / [id number] / [id number] Description:Implant thrown i n the trash after explanted from patient [employer] Inc [id number] Tornier Aequalis Perform 39mm Reverse Shoulder Standard Sphere - [id number] - [id number] Implanted:Qty: 1 on 01/20/2021 by Darci Bermeo MD at [facility] Explanted:Qty: 1 on 03/02/2021 by Darci Bermeo MD at [facility] Right: Arm [employer] [id number] 11/22/2025 [id number] / [id number] / [id number] Description:Implant thrown i n trash after explanted from patient Procedures Procedure Name Priority Date/Time Associated Diagnosis Comments EGFR STAT 10/26/2024 9:33 PM CDT DIFFERENTIAL AUTO STAT 10/26/2024 9:3 3 PM CDT URINALYSIS, MICROSCOPIC ONLY STAT 10/26/2024 9:33 PM CDT BASIC METABOLIC PANEL STAT 10/26/2024 9:33 PM CDT CBC WITH AUTO DIFFERENTIAL STAT 10/26/2024 9:33 PM CDT URINE CULTURE STAT 10/26/2024 9:33 PM CDT URINALYSIS AND REFLEX TO MICROSCOPIC AND CULTURE STAT 10/26/2024 9:33 PM CDT from Last 3 Months Results * eGFR (10/26/2024 9:33 PM CDT) eGFR >90 >=60 mL/min/1. 73 m2 Comment: Interpretive Data Reference Interval Normal >/= 90 mL/min/1.73m2 Mildly decreased* 60 - 89 mL/min/1.73m2 Mildly to moderately decreased 45 - 59 mL/min/1.73m2 Moderately to severely decreased 30 - 44 mL/min/1.73m2 Severely decreased 15 - 29 mL/min/1.73m2 Kidney Failure < 15 mL/min/1.73m2 *Relative to young adult level Estimated glomerular filtration rate is determined by the 2020 CKD-EPI equation recommended by the National Kidney Foundation (A Unifying Approach to GFR Estimation: Recommendations of the NKF-ASK Task Force on Reassessing the Inclusion of Race in Diagnosing Kidney Disease, JASN 202). The CKD-EPI equation should not be used for patients with unstable renal function and has not been validated in children and those over 70. Current interpretive data was last reviewed 2020. Blood 10/26/2024 9:33 PM CDT 10/26/2024 10:08 PM CDT us Brad Jacob MD LAB BLOOD ORDERABLES Final Re sult [facility] Department [place] [address] * Differential, auto (10/26/2024 9:33 PM CDT) Neutrophil abs 3.64 1.50 - 6.50 K/cumm Imm gran abs 0.01 0.00 - 0.10 K/cumm [facility] Lymphocyte abs 1.51 0.80 - 3.30 K/cumm [facility] Monocyte abs 0.51 0.20 - 0.80 K/cumm [facility] Eosinophil abs 0.13 0.00 - 0.50 K/cumm [facility] Basophil abs 0.03 0.00 - 0.10 K/cumm [facility] Neutrophil pct 62.5 % [facility] Comment: Interpretive Data Percent cell count reference ranges are not reported, since discordance with absolute values may lead to misinterpretation of CBC data. Current Interpretive Data was last revised on 2017. Imm gran pct 0.2 % [facility] Comment: Interpretive Data Percent cell count reference ranges are not reported, since discordance with absolute values may lead to misinterpretation of CBC data. Current Interpretive Data was last revised on 2017. Lymphocyte pct 25.9 % [facility] Comment: Interpretive Data Percent cell count reference ranges are not reported, since discordance with absolute values may lead to misinterpretation of CBC data. Current Interpretive Data was last revised on 2017. Monocyte pct 8.7 % [facility] Comment: Interpretive Data Percent cell count reference ranges are not reported, since discordance with absolute values may lead to misinterpretation of CBC data. Current Interpretive Data was last revised on 2017. Eosinophil pct 2.2 % [facility] Comment: Interpretive Data Percent cell count reference ranges are not reported, since discordance with absolute values may lead to misinterpretation of CBC data. Current Interpretive Data was last revised on 2017. Basophil pct 0.5 % [facility] Comment: Interpretive Data Percent cell count reference ranges are not reported, since discordance with absolute values may lead to misinterpretation of CBC data. Current Interpretive Data was last revised on 2017. Blood 10/26/2024 9:33 PM CDT 10/26/2024 10:08 PM CDT us Brad Jacob MD LAB BLOOD ORDERABLES Final Re sult [facility] Department [place] [address] * (ABNORMAL) Urinalysis reflex to microscopic and culture Urine (10/26/2024 9:33 PM CDT) Color, ur Yellow Yellow Clarity, ur Clear Clear [facility] Specific gravity, ur 1.008 1.003 - 1.030 [facility] pH, urine 6.5 [facility] Comment: Interpretive Data U rine pH is affected by diet, medications, systemic acid-base disturbances, and renal tubular function. pH may affect urinary stone formation. For example, urine pH below 6.0 may help reduce the tendency for calcium phosphate stones and pH greater than 6.0 may reduce the tendency for uric acid stone formation. Source: [facility] Current Interpretive Data was last revised on 2017 Protein, ur ql Trace Negative [facility] Glucose, ur ql Negative Negative [facility] Ketones, ur Trace Negative [facility] Bilirubin, ur Negative Negative [facility] Blood, ur Trace(A) Negative [facility] Urobilinogen, ur <2.0 <2.0 mg/dL [facility] Nitrite, ur Negative Negative [facility] Leukocyte esterase, ur 2+(A) Negative [facility] UA reflex comment Reflex to microscopic UA will be performed. [facility] Urine 10/26/2024 9:33 PM CDT 10/26/2024 9:51 PM CDT us Brad Jacob MD LAB MICROBIOLOGY - GENERAL OR DERABLES Final Result Performing Organization Address City/[facility]/ZIP Co de Phone Number [facility] Department [place] [address] * CBC with auto differential (10/26/2024 9:33 PM CDT) WBC 5.83 3.80 - 9.90 K/cumm Hgb 13.2 13.0 - 17.5 g/dL [facility] Hct 39.1 38.9 - 50.3 % [facility] Plt 246 150 - 400 K/cumm [facility] MPV 9.7 9.1 - 12.3 fL [facility] RBC 4.35 4.30 - 5.80 M/cumm [facility] MCV 89.9 81.3 - 96.4 fL [facility] MCH 30.3 27.1 - 33.3 pg [facility] MCHC 33.8 32.3 - 35.7 g/dL [facility] RDW CV 14.0 11.1 - 14.9 % [facility] RDW SD 45.8 35.7 - 48.1 fL [facility] NRBC abs 0.00 0.00 - 0.01 K/cumm [facility] Blood 10/26/2024 9:33 PM CDT 10/26/2024 10:08 PM CDT Brad Jacob MD LAB BLOOD ORDERABLES Final Re sult [facility] Department [place] [address] * (ABNORMAL) Urinalysis, microscopic only (10/26/2024 9:33 PM CDT) Pathologist [facility] WBC, ur 11-20(A) 0 - 5 /HPF RBC, ur 6-10(A) 0 - 2 /HPF [facility] Epithelial cells, squamous, ur 1-5 0 - 5 /HPF [facility] Bacteria, ur Trace(A) [facility] Culture Reflex Comment Reflex to urine culture will be performed. [facility] Urine 10/26/2024 9:33 PM CDT 10/26/2024 9:51 PM CDT us Brad Jacob MD LAB URINE ORDERABLES Final Re sult Performing Organization Address [facility] Co de Phone Number [facility] [place] [address] * Urine culture Urine (10/26/2024 9:33 PM CDT) Pathologist [facility] Report Final Report: Less than 100,000 colonies/mL (clinically insignificant growth based on current clinical standards) Organism (CLINICALLY INSIGNIFICANT GROWTH [facility] Urine 10/26/2024 9:33 PM CDT 10/26/2024 11:03 PM CDT Narrative [facility] - 10/28/2024 9:53 AM CDT Urine culture reflexed based upon urinalysis results. Testing performed by [facility]biology Laboratory ([phone]) us Brad Jacob MD LAB MICROBIOLOGY - GENERAL OR DERABLES Final Result Performing Organization Address [facility] [place] [address] * (ABNORMAL) Basic metabolic panel (10/26/2024 9:33 PM CDT) Pathologist [facility] Sodium 143 135 - 145 mmol/L Potassium, pl 3.7 3.3 - 4.9 mmol/L [facility] Chloride 106 97 - 110 mmol/L [facility] CO2 25 22 - 32 mmol/L [facility] Anion gap 12 2 - 15 mmol/L [facility] BUN 17 6 - 25 mg/dL [facility] Creatinine 0.69(L) 0.80 - 1.30 mg/dL [facility] Glucose 116 70 - 199 mg/dL [facility] Comment: Interpretive Data Fasting glucose >/= 126 mg/dl is diagnostic for diabetes. Fasting is defined as no caloric intake for at least 8 hours. Fasting glucose between 100 mg/dl to 125 mg/dl is diagnostic of prediabetes. In a patient with classic symptoms of hyperglycemia or hyperglycemic crisis, a random glucose >/= 200 mg/dl is diagnostic for diabetes. In the absence of unequivocal hyperglycemia, results should be confirmed by repeat testing. The classification and Diagnosis of Diabetes Diabetes Care 2021; 46: S19-S40. Current interpretive data was last revised 2022. Calcium 9.8 8.5 - 10.3 mg/dL [facility] Blood 10/26/2024 9:33 PM CDT 10/26/2024 10:08 PM CDT Brad Jacob MD LAB BLOOD ORDERABLES Final Re sult [facility] Department [place] [address] from Last [address] [place] [address] [place] [address] [facility] [employer] [facility] Advance Directives For more information, please contact: [phone] * Full Code (Latest Code Status on File) Date Activated Date Inactivated Comments 03/02/2021 5:11 PM 03/03/2021 9:25 PM * Full Code Date Activated Date Inactivated Comments 01/20/2021 1:34 PM 01/22/2021 8:05 PM * Full Code Date Activated Date Inactivated Comments 10/13/2017 3:09 PM 10/13/2017 8:26 PM * Full Code Date Activated Date Inactivated Comments 10/13/2017 3:15 AM 10/13/2017 3:09 PM Care Teams Central Supply Supervisor Relationship Specialty Start Date End Date Ion Murcia DO PCP - General 10/12/17 [place] [address] [place] [address] Physical Therapist Physical Therapy 04/24/19
--- OUTSIDE RECORDS SUMMARY | 2024-11-19 15:50 | XMS_ITS | Encounter Summary ---
Author Organization [facility] Address [address] [place] [address] Care Team Providers Care Film Sound Engineer Name Role Phone Valentin Tello MD Primary Care Provider [phone] Bina Carranza AMBULATORY CARE NURSE Unavailable [phone] Encounter Details Date Type Department Care Team (Late st Contact Info) Description 06/04/2019 Lab Requisition [facility] D[facility] [address] [facility], [facility] [place] [id number] Figueroa Garcia MD [address] [place] [address] Social History Tobacco Use Types Packs/Day Years Used Date Smoking Tobacco: Never Smokeless Tobacco: Never Alcohol Use Standard Drinks/Week Comments Yes 0 (1 standard drink = 0.6 oz pur e alcohol) once a week Sex and Gender Information Value Date Recorded Sex Assigned at Not on file 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 Answer Date of Assessment Author No 07/17/2016 1:09 PM Gregoria Livingston RN * Is person blind or have serious difficulty seeing? Answer Date of Assessment Author No 07/17/2016 1:09 PM Gregoria Livingston RN * Does person have serious difficulty walking/climbing stairs? Answer Date of Assessment Author Yes 07/17/2016 1:09 PM CDT Gregoria Pantoja RN * Does person have difficulty dressing/bathing? Answer Date of Assessment Author Yes 07/17/2016 1:09 PM CDT Gregoria Pantoja RN * Does person have difficulty doing errands alone? Answer Date of Assessment Author Yes 07/17/2016 1:09 PM CDT Gregoria Pantoja RN documented as of this encounter Mental Status * Does person have difficulty concentrating/remembering/making decisions? Answer Entry Date Author No 07/17/2016 1:09 PM CDT Gregoria Pantoja RN documented in this encounter Plan of Treatment Not on file documented as of this encounter Procedures Procedure Name Priority Date/Time Associated Diagnosis Comments DERMATOPATHOLOGY Routine 06/03/2019 12:0 0 AM CDT documented in this encounter Results * DERMATOPATHOLOGY (06/03/2019 12:00 AM CDT) Case Report Dermatopathology Report Case: [id number] Authorizing Provider: Figueroa Garcia MD Collected: 06/03/2019 12:00 AM Ordering Location: [facility] DermPath Lab Received: 06/04/2019 01:00 PM Pathologist: Oneyda Figueredo MD Specimens: A) - Skin, midline upper back B) - Skin, left jawline C) - Skin, right mid lat upper arm 0 4:49 PM CDT DERMATOPATHOLOGY LABORATORY Final Diagnosis Specimen A. SKIN, midline upper back: MELANOMA IN SITU, SUPERFICIAL SPREADING TYPE (D03.59) NOT PRESENT AT SAMPLED MARGIN (see microscopic description) Specimen B. SKIN, left jawline: VERRUCA VULGARIS (B07.8) EPIDERMAL NECROSIS SUGGESTIVE OF EXCORIATION, IMPETIGINIZED (L98.499) NOT PRESENT AT SAMPLED MARGIN Specimen C. SKIN, right mid lat upper arm: BASAL CELL CARCINOMA, NODULAR TYPE (C44.612) NOT PRESENT AT SAMPLED MARGIN 0 4:49 PM CDT DERMATOPATHOLOGY LABORATORY at 1649 CDT Clinical History A: R/O ISK. B: R/O dysplastic nevus. Check margins. C: R/O BCC. Check margins. 0 4:49 PM [facility] DERMATOPATHOLOGY LABORATORY Gross Description Specimen A: Received is one formalin filled container labeled with the patient's name and designated midline upper back. The specimen consists of a shave biopsy measuring [id number]. Jar 0. Specimen B: Received is one formalin filled container labeled with the patients name and designated left jawline. The specimen consists of a shave removal measuring [id number]. The margin is inked green. Jar 0. Specimen C: Received is one formalin filled container labeled with the patients name and designated right mid lat upper arm. The specimen consists of a shave removal measuring [id number]. The margin is inked green. Jar 0. 0 4:49 PM [facility] DERMATOPATHOLOGY LABORATORY Microscopic Description Specimen A. SKIN, midline upper back: There is a proliferation of melanocytes distributed in an irregular pattern, singly and in nests, at all levels of the epidermis. The melanocytes are highlighted by an immunostain for MART-1/Melan-A. This lesion is not present at the sampled margin of the specimen. Additional deeper sections were obtained and reviewed. Specimen B. SKIN, left jawline: The epidermis is focally necrotic and covered with a scale-crust containing aggregates of bacterial organisms. There is fibrin at the base.There is digitated epidermal hyperplasia, hypergranulosis, vacuolated granular layer cells, and compact hyperorthokeratosis . This lesion is not present at the sampled margin of the specimen. Specimen C. SKIN, right mid lat upper arm: Within the dermis there are aggregates of basaloid cells with a high nuclear to cytoplasmic ratio and peripheral palisading. This lesion is not present at the sampled margin of the specimen. 0 4:49 PM [facility] DERMATOPATHOLOGY LABORATORY Disclaimer An external and internal positive and negative controls are appropriate for the histochemical, immunohistochemical and immunofluorescence stain(s) in this case (if any), except where stated explicitly. The performance characteristics of the stain(s) cited in this report were developed and its performance characteristic determined by the Dermatopathology Laboratory at [facility], directed by Dr. Reva Jimenez. These tests need not be, and therefore are not, approved by the [place] Food and Drug Administration. The tests are used for clinical purposes. Billing Codes Specimen Charges Stain Charges 46436 05030 20564 1 1 1 47312 1 0 4:49 PM CDT DERMATOPATHOLOGY LABORATORY Embedded Images 0 4:49 PM CDT DERMATOPATHOLOGY LABORATORY Pathology/Cytology TISSUE SPECIMEN FROM SKIN / Unknown 06/03/2019 06/04/2019 1:00 PM CDT Miscellaneous samples (specimen) TISSUE SPECIMEN FROM SKIN / Unknown 06/03/2019 06/04/2019 1:00 PM CDT Miscellaneous samples (specimen) TISSUE SPECIMEN FROM SKIN / Unknown 06/03/2019 06/04/2019 1:00 PM CDT Figueroa Garcia MD LAB - PATHOLOGY/CYTOLOGY ORD ERABLES Final Result DERMATOPATHOLOGY LABORATORY [facility] - Department of Dermatology [address] [place] [address] 5th Floor Lab [address] [phone] documented in this encounter Visit Diagnoses Not on filedocumented in this encounter Care Teams Film Sound Engineer Relationship Specialty Start Date End Date Valentin Tello MD PCP - General Endocrinology 03/04/14 Bina Carranza MSW [place] Parking Lot Attendant And Cashier 03/08/14 documented as of this encounter
--- OUTSIDE RECORDS SUMMARY | 2024-11-19 15:50 | XMS_ITS | Encounter Summary ---
Author Organization [facility] Address [address] [facility] [place] [address] Care Team Providers Care Laundry Marker Supervisor Name Role Phone Valentin Tello MD Primary Care Provider [phone] Bina Carranza ENTERPRISE RESOURCE PLANNER Unavailable [phone] Encounter Details Date Type Department Care Team (Late st Contact Info) Description 10/30/2019 Lab Requisition [facility] Care DermPath Lab [address] [facility] [place] [id number] Figueroa Garcia MD [address] [place] [address] Social History Tobacco Use Types Packs/Day Years Used Date Smoking Tobacco: Never Smokeless Tobacco: Never Alcohol Use Standard Drinks/Week Comments Yes 0 (1 standard drink = 0.6 oz pur e alcohol) once a week Sex and Gender Information Value Date Recorded Sex Assigned at Not on file 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 Gender Identity Not on file Sexual Orientation [...] Priority Date/Time Associated Diagnosis Comments DERMATOPATHOLOGY Routine 10/28/2019 12:0 0 AM CDT documented in this encounter Results * DERMATOPATHOLOGY (10/28/2019 12:00 AM CDT) Case Report Dermatopathology Report Case: [id number] Authorizing Provider: Figueroa Garcia MD Collected: 10/28/2019 12:00 AM Ordering Location: [facility] DermPath Lab Received: 10/30/2019 12:52 PM Pathologist: Macarena Hdez MD Specimens: A) - Skin, right lat upper back below trap B) - Skin, right lat upper back below shoulder C) - Skin, left lat upper back below shoulder D) - Skin, right upper back med to scapula 0 6:01 PM CDT DERMATOPATHOLOGY LABORATORY Final Diagnosis Specimen A. SKIN, right lat upper back below trap: COMPOUND MELANOCYTIC NEVUS (D22.5) PRESENT AT MARGIN Specimen B. SKIN, right lat upper back below shoulder: BASAL CELL CARCINOMA, NODULAR TYPE (C44.519) NOT PRESENT AT SAMPLED MARGIN Specimen C. SKIN, left lat upper back below shoulder: BASAL CELL CARCINOMA, SUPERFICIAL MULTIFOCAL (C44.519) NOT PRESENT AT SAMPLED MARGIN Specimen D. SKIN, right upper back med to scapula: BASAL CELL CARCINOMA, NODULAR TYPE (C44.519) NOT PRESENT AT SAMPLED MARGIN 0 6:01 PM CDT DERMATOPATHOLOGY LABORATORY at 1801 CDT Clinical History A-D: R/O BCC, Adams's, SCC, ISK. Check margins. 0 6:01 PM T DERMATOPATHOLOGY LABORATORY Gross Description Specimen A: Received is one formalin filled container labeled with the patients name and designated right lat upper back below trap. The specimen consists of a shave removal measuring [id number]. The margin is inked green. Jar 0. Specimen B: Received is one formalin filled container labeled with the patient's name and designated right lat upper back below shoulder. The specimen consists of a shave biopsy measuring [id number]. The margin is inked green. Jar 0. Specimen C: Received is one formalin filled container labeled with the patients name and designated left lat upper back below shoulder. The specimen consists of a shave removal measuring [id number]. The margin is inked green. Jar 0. Specimen D: Received is one formalin filled container labeled with the patients name and designated right upper back med to scapula. The specimen consists of a shave removal measuring [id number]. The margin is inked green. Jar 0. 0 6:01 PM T DERMATOPATHOLOGY LABORATORY Microscopic Description Specimen A. SKIN, right lat upper back below trap: There are nests of melanocytes at the dermal-epidermal junction and within the dermis. This lesion is present at the margin of the specimen. Specimen B. SKIN, right lat upper back below shoulder: Within the dermis there are aggregates of basaloid cells with a high nuclear to cytoplasmic ratio and peripheral palisading. This lesion is not present at the sampled margin of the specimen. Specimen C. SKIN, left lat upper back below shoulder: Attached to the undersurface of the epidermis, there are small aggregates of basaloid cells with a high nuclear to cytoplasmic ratio and peripheral palisading. This lesion is not present at the sampled margin of the specimen. Specimen D. SKIN, right upper back med to scapula: Within the dermis there are aggregates of basaloid cells with a high nuclear to cytoplasmic ratio and peripheral palisading. This lesion is not present at the sampled margin of the specimen. 0 6:01 PM T DERMATOPATHOLOGY LABORATORY Disclaimer An external and internal positive and negative controls are appropriate for the histochemical, immunohistochemical and immunofluorescence stain(s) in this case (if any), except where stated explicitly. The performance characteristics of the stain(s) cited in this report were developed and its performance characteristic determined by the Dermatopathology Laboratory at [facility], directed by Dr. Reva Jimenez. These tests need not be, and therefore are not, approved by the [place] Food and Drug Administration. The tests are used for clinical purposes. Billing Codes Specimen Charges Stain Charges 72547 71774 45992 14594 1 1 1 1 0 6:01 PM CDT DERMATOPATHOLOGY LABORATORY Embedded Images 0 6:01 PM CDT DERMATOPATHOLOGY LABORATORY Pathology/Cytology TISSUE SPECIMEN FROM SKIN / Unknown 10/28/2019 10/30/2019 12:52 PM CDT Miscellaneous samples (specimen) TISSUE SPECIMEN FROM SKIN / Unknown 10/28/2019 10/30/2019 12:52 PM CDT Miscellaneous samples (specimen) TISSUE SPECIMEN FROM SKIN / Unknown 10/28/2019 10/30/2019 12:52 PM CDT Miscellaneous samples (specimen) TISSUE SPECIMEN FROM SKIN / Unknown 10/28/2019 10/30/2019 12:52 PM CDT Figueroa Garcia MD LAB - PATHOLOGY/CYTOLOGY ORD ERABLES Final Result DERMATOPATHOLOGY LABORATORY [facility] - Department of Dermatology [facility] Medicine [address] [place] [address], [address]rd Floor [address] [phone] documented in this encounter Visit Diagnoses Not on filedocumented in this encounter Care Teams Laundry Marker Supervisor Relationship Specialty Start Date End Date Valentin Tello MD PCP - General Endocrinology 03/04/14 Bina Carranza MSW [place] Carpet Sewing Machine Operator 03/08/14 documented as of this encounter
--- OUTSIDE RECORDS SUMMARY | 2024-11-19 15:50 | XMS_ITS | Clinical Summary ---
Author Organization [facility] Address [address] [place] [address] Care Team Providers Care Slip Cover Cutter Name Role Phone Valentin Tello MD Primary Care Provider [phone] Bina Carranza UTILITY TRACTOR OPERATOR Unavailable [phone] Source Comments [facility],non-owned Affiliates and Associated Physician Practices is amultiple site organization consisting of ambulatory clinics and hospital sitesin [place], [place], [place] and [place]. This disclosure is being madepursuant to the Care Everywhere program and may not contain all information available regarding this patient. Last updated 17.[facility] Allergies Active Allergy Reactions Criticality Noted Date Comments Levofloxacin GI Discomfort Low 08/08/2015 Medications * Be aware that medications may not be up to date on this document. Alwaysverify current medications with the patient. multivitamin daily (THERAGRAN) tablet Take 1 Tab by mouth daily with food. Active ascorbic acid (VITAMIN C) 500 MG tablet Take 500 mg by mouth 3 times daily Active ibuprofen (MOTRIN) 200 MG tablet Take 200 mg by mouth every 6 hours as needed for Pain Active aspirin (ASPIRIN) 325 MG tabletIndication s:Nontraumatic complete tear of right rotator cuff Take 1 Tab by mouth 2 times daily after meals 60 Tab 07/13/2016 Active Active Problems Patient Care Coordination No te Formatting of this note migh t be different from the original. 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 Gender Identity Not on file Sexual Orientation Not on file Last Filed Vital Signs Vital Sign Reading Time Taken Comments Blood Pressure 146/99 07/17/2016 11:35 AM CDT Pulse 66 07/17/2016 11:35 AM CDT Temperature 36.4 C (97.6 F) 07/17/2016 11:35 AM CDT Respiratory Rate 20 07/17/2016 11:35 AM CDT Oxygen Saturation 97% 07/17/2016 11:35 AM CDT Inhaled Oxygen Concentration - - Weight 69.4 kg (153 lb) 07/10/2016 11:36 AM CDT Height 180.3 cm (5' 11) 07/09/2016 2:54 PM CDT Body Mass Index 21.34 07/09/2016 2:54 PM CDT Plan of Treatment Health Maintenance Due Date Last Done Comments COLOGUARD (AGES 45-75) - COL ON CA SCREENING 1969 COLON MONITORING 1969 COLONOSCOPY - COLON CA SCREENING 1969 CT COLONOGRAPHY - COLON CA SCREENING 1969 Colorectal Cancer Screening 1969 FIT - COLON CA SCREENING 1969 FLEX SIG - COLON CA SCREENING 1969 LIPID TESTING 1969 HIV SCREENING 1984 HEPATITIS C SCREENING 06/08/1987 DTAP/TDAP/TD VACCINES (1 - Tdap) 1988 HEPATITIS B VACCINE (1 of 3 - 19+ 3-dose series) 1988 PNEUMOCOCCAL VACCINE 50+ (1 of 1 - PCV) 06/13/2019 ZOSTER VACCINE (1 of 2) 06/13/2019 DEPRESSION SCREENING 02/19/2024 COVID-19 VACCINE (1 - 2023-2 5 season) 2024 INFLUENZA VACCINE (#1) 2024 HIB VACCINE Aged Out No longer eligi ble based on patient's age to complete this topic HPV VACCINE Aged Out No longer eligi ble based on patient's age to complete this topic MENINGOCOCCAL (Group B) VACC INE SHARED DECISION-MAKING Aged Out No longer eligibl e based on patient's age to complete this topic MENINGOCOCCAL GROUPS A/C/Y/W VACCINE Aged Out No longer eligible b ased on patient's age to complete this topic Medical Devices Implanted Type Area [employer] Business Intelligence Developer Device Identifier Shelf Expiration Date Model / Serial / Lot Y-Knot Rc All Suture [place] With Two #2 Hi-Fi Sutures Implanted:Qty: 2 on 03/04/2014 by Jos Wilkins MD at [facility] Left: Shoulder Conmed Benjy 08/18/2014 [facility] / / [id number] Y-Knot Rc All-Suture [place] With Two #2 Hi-Fi Sutures Implanted:Qty: 1 on 03/04/2014 by Jos Wilkins MD at [facility] Left: Shoulder Conmed Benjy 10/19/2018 [facility] / / [id number] Poplok Suture [place] Implanted:Qty: 1 on 03/04/2014 by Jos Wilkins MD at [facility] Left: Shoulder Conmed Benjy 10/19/2018 CK-4500 / / [id number] Poplok Suture [place] Implanted:Qty: 2 on 03/04/2014 by Jos Wilkins MD at [facility] Left: Shoulder Conmed Benjy 08/18/2018 CKP-4500 / / [id number] [employer] Ft Suture [place] Withthree #2 Hi-Fi Sutures Implanted:Qty: 1 on 03/04/2014 by Jos Wilkins MD at [facility] Left: Shoulder Conmed Benjy 11/19/2015 CF-5503 / / [id number] Poplok Suture [place] Implanted:Qty: 1 on 03/04/2014 by Jos Wilkins MD at [facility] Left: Shoulder Conmed Benjy 08/18/2018 CKP-3500 / / [id number] 4.5 Mm Peek [place] Implanted:Qty: 1 on 07/10/2016 by Jos Wilkins MD at [facility] Right: Shoulder [facility] [id number] 11/17/2020 [id number] / / [id number] Quattro X Suture [place] 5.5 Mm Peek Implanted:Qty: 1 on 07/10/2016 by Jos Wilkins MD at [facility] Right: Shoulder [facility] 03/20/2021 CM-9255 / / [id number] 4.5 Mm Peek [place] Implanted:Qty: 1 on 07/10/2016 by Jos Wilkins MD at [facility] Right: Shoulder [facility] [id number] 11/17/2020 [id number] / / [id number] 5.5 Mm Triple Loaded Suture [place] Implanted:Qty: 1 on 07/10/2016 by Jos Wilkins MD at [facility] Right: Shoulder [facility] [id number] 11/17/2020 [id number] / / [id number] Insurance [facility]LY [facility] SELF PAY NO INSURANCE Member Subscriber Plan / Payer (Ef fective for All Dates) Name:Panchito Rodney Member ID:Not on file Relation to Subscriber:Not on file Name:PANCHITO RODNEY Subscriber ID:Not on file (Home) Address: [address] [place] [address] Payer ID:Not on file Group ID:Not on file Type:Self Pay Address: [place], [place] [facility] DEPT OF LABOR Advance Directives * Full Code (Latest Code Status on File) Date Activated Date Inactivated Comments 07/10/2016 7:07 PM 07/17/2016 4:26 PM * Full Code Date Activated Date Inactivated Comments 03/04/2014 7:28 PM 04/16/2014 1:22 PM Care Teams Slip Cover Cutter Relationship Specialty Start Date End Date Valentin Tello MD PCP - General Endocrinology 03/04/14 Bina Carranza MSW [place] Tappet Adjuster 03/08/14
--- OUTSIDE RECORDS SUMMARY | 2024-11-19 15:50 | XMS_ITS | Encounter Summary ---
Author Organization [facility] Address [address] [facility] [place] [address] Care Team Providers Care External Auditor Name Role Phone Valentin Tello MD Primary Care Provider [phone] Bina Carranza BEE KEEPER Unavailable [phone] Encounter Details Date Type Department Care Team (Late st Contact Info) Description 08/02/2022 Lab Requisition [facility] - DermPath Lab [address] [place] [address] Figueroa Garcia MD [address] [place] [address] Social History Tobacco Use Types Packs/Day Years Used Date Smoking Tobacco: Never Smokeless Tobacco: Never Alcohol Use Standard Drinks/Week Comments Yes 0 (1 standard drink = 0.6 oz pur e alcohol) once a week Sex and Gender Information Value Date Recorded Sex Assigned at Not on file 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 Gender Identity Not on file Sexual Orientation [...] Priority Date/Time Associated Diagnosis Comments DERMATOPATHOLOGY Routine 07/31/2022 12:0 0 AM CDT documented in this encounter Results * DERMATOPATHOLOGY (07/31/2022 12:00 AM CDT) Case Report Dermatopathology Report Case: [id number] Authorizing Provider: Figueroa Garcai MD Collected: 07/31/2022 12:00 AM Ordering Location: [facility] DermPath Lab Received: 08/02/2022 07:04 AM Pathologist: Ivonne Dsouza MD Specimens: A) - Skin, right upper med mid back B) - Skin, right mid back C) - Skin, right med inferior breast D) - Skin, RUQ abdomen 5:43 PM CDT DERMATOPATHOLOGY LABORATORY Final Diagnosis Specimen A. SKIN, right upper med mid back: LENTIGINOUS MELANOCYTIC NEVUS, COMPOUND TYPE, IRRITATED (D22.5) NOT PRESENT AT SAMPLED MARGIN Specimen B. SKIN, right mid back: LENTIGINOUS MELANOCYTIC NEVUS, COMPOUND TYPE, IRRITATED; NOT PRESENT AT SAMPLED MARGIN (D22.5) LENTIGINOUS MELANOCYTIC NEVUS, JUNCTIONAL TYPE, IRRITATED AND INFLAMED; NOT PRESENT AT SAMPLED MARGIN (D22.5) (see microscopic description) Specimen C. SKIN, right med inferior breast: SEBORRHEIC KERATOSIS, INFLAMED (L82.0) NOT PRESENT AT SAMPLED MARGIN Specimen D. SKIN, RUQ abdomen: LENTIGINOUS MELANOCYTIC NEVUS, JUNCTIONAL TYPE, IRRITATED AND INFLAMED (D22.5) NOT PRESENT AT SAMPLED MARGIN (see microscopic description) 3 5:43 PM CDT DERMATOPATHOLOGY LABORATORY at 1743 CDT Clinical History A-D: R/O dysplastic nevus vs IDN vs other Check all margins 3 5:43 PM CDT DERMATOPATHOLOGY LABORATORY Gross Description Specimen A: Received is one formalin filled container labeled with the patients name and designated right upper med mid back. The specimen consists of a shave removal measuring 7x4x1 mm. Jar 0. Specimen B: Received is one formalin filled container labeled with the patients name and designated right mid back. The specimen consists of a shave removal measuring 10x5x1 mm. Jar 0. Specimen C: Received is one formalin filled container labeled with the patients name and designated right med inferior breast. The specimen consists of a shave removal measuring 5x7x1 mm. Jar 0. Specimen D: Received is one formalin filled container labeled with the patients name and designated RUQ abdomen. The specimen consists of a shave removal measuring 6x5x1 mm. Jar 0. 3 5:43 PM CDT DERMATOPATHOLOGY LABORATORY Microscopic Description Specimen A. SKIN, right upper med mid back: This is a compound nevus. There is melanin pigment in the stratum corneum. There is a lentiginous proliferation of melanocytes between nevus nests of cells along the dermal epidermal junction. There is underlying fibroplasia of the papillary dermis. The intradermal component is bland in appearance and matures with depth. (Compound Abel's Nevus) This lesion is not present at the sampled margin of the specimen. Specimen B. SKIN, right mid back: There is a compound nevus. There is melanin pigment within the stratum corneum. There is a lentiginous proliferation of melanocytes between nests of cells along the dermal-epidermal junction, highlighted by MART-1/Melan-A immunohistochemical staining. There is underlying fibroplasia of the papillary dermis. The intradermal component is bland appearance and matures with depth. (Compound Abel's Nevus) This lesion is not present at the sampled margin of the specimen. In addition, there is a somewhat separate but adjacent junctional nevus. There is melanin pigment in the stratum corneum. There is a lentiginous proliferation of melanocytes between nests of cells along the dermal-epidermal junction, highlighted by MART-1/Melan-A immunohistochemical staining. There is underlying fibroplasia of the papillary dermis. (Junctional Abel's Nevus) There is a lymphohistiocytic infiltrate within the dermis. This lesion is not present at the sampled margin of the specimen. Specimen C. SKIN, right med inferior breast: There is hyperkeratosis, parakeratosis, papillomatosis, and acanthosis of the epidermis. There is a lymphohistiocytic infiltrate within the papillary dermis that is focally lichenoid. This lesion is not present at the sampled margin of the specimen. Specimen D. SKIN, RUQ abdomen: This is a junctional nevus. There is melanin pigment in the stratum corneum. There is a lentiginous proliferation of melanocytes between nests of cells along the dermal-epidermal junction, highlighted by MART-1/Melan-A immunohistochemical staining. There is underlying fibroplasia of the papillary dermis. (Junctional Abel's Nevus) There is a lymphohistiocytic infiltrate within the dermis. This lesion is not present at the sampled margin of the specimen. 3 5:43 PM CDT DERMATOPATHOLOGY LABORATORY Disclaimer An external and internal positive and negative controls are appropriate for the histochemical, immunohistochemical and immunofluorescence stain(s) in this case (if any), except where stated explicitly. The performance characteristics of the stain(s) cited in this report were developed and its performance characteristic determined by the Dermatopathology Laboratory at [facility], directed by Dr. Reva Jimenez. These tests need not be, and therefore are not, approved by the [place] Food and Drug Administration. The tests are used for clinical purposes. Billing Codes Specimen Charges Stain Charges 59161 44812 21140 67328 1 1 1 1 53986 73346 1 1 3 5:43 PM CDT DERMATOPATHOLOGY LABORATORY Embedded Images 3 5:43 PM CDT DERMATOPATHOLOGY LABORATORY Pathology/Cytology TISSUE SPECIMEN FROM SKIN / Unknown 07/31/2022 08/02/2022 7:04 AM CDT Miscellaneous samples (specimen) TISSUE SPECIMEN FROM SKIN / Unknown 07/31/2022 08/02/2022 7:04 AM CDT Miscellaneous samples (specimen) TISSUE SPECIMEN FROM SKIN / Unknown 07/31/2022 08/02/2022 7:04 AM CDT Miscellaneous samples (specimen) TISSUE SPECIMEN FROM SKIN / Unknown 07/31/2022 08/02/2022 7:04 AM CDT Figueroa Garcia MD LAB - PATHOLOGY/CYTOLOGY ORD ERABLES Final Result DERMATOPATHOLOGY LABORATORY [facility] Department of Dermatology [facility] Medicine [address] [place] [address], [address] [phone] documented in this encounter Visit Diagnoses Not on filedocumented in this encounter Care Teams External Auditor Relationship Specialty Start Date End Date Valentin Tello MD PCP - General Endocrinology 03/04/14 Bina Carranza MSW [place] Government Service Executive 03/08/14 documented as of this encounter
--- OUTSIDE RECORDS SUMMARY | 2024-11-19 15:50 | XMS_ITS | Encounter Summary ---
Author Organization [facility] Health Address [address] [place] [address] Care Team Providers Care Hand Cloth Examiner Name Role Phone Valentin Tello MD Primary Care Provider [phone] Dillon, Bina PROCESS CONTROLLER Unavailable [phone] Encounter Details Date Type Department Care Team (Late st Contact Info) Description 08/06/2014 Therapy Visit EXTERNAL [facility] DEPT Unknown, Provider Social History Tobacco Use Types Packs/Day Years Used Date Smoking Tobacco: Never Alcohol Use Standard Drinks/Week Comments Yes 0 (1 standard drink = 0.6 oz pur e alcohol) once a week Sex and Gender Information Value Date Recorded Sex Assigned at Not on file 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
--- OUTSIDE RECORDS SUMMARY | 2024-11-19 15:50 | XMS_ITS | Encounter Summary ---
Author Organization [facility] Health Address [address] [place] [address] Care Team Providers Care Spool Winder Name Role Phone Valentin Tello MD Primary Care Provider [phone] Bina Carranza LEARNING AND DEVELOPMENT MANAGER Unavailable [phone] Encounter Details Date Type Department Care Team (Late st Contact Info) Description 07/04/2016 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 Answer Date of Assessment Author No 04/16/2014 10:06 AM REWINDER Danilo Quiles RN * Is person blind or have serious difficulty seeing? Answer Date of Assessment Author No 03/04/2014 8:52 PM Susan Oseguera RN * Does person have serious difficulty walking/climbing stairs? Answer Date of Assessment Author Yes 04/16/2014 10:06 AM ELLI Quiles, Danilo Ascencio RN * Does person have difficulty dressing/bathing? Answer Date of Assessment Author Yes 04/16/2014 10:06 AM Danilo Roberts RN * Does person have difficulty doing errands alone? Answer Date of Assessment Author No 04/16/2014 10:06 AM Daniol Roberts RN documented as of this encounter Mental Status * Does person have difficulty concentrating/remembering/making decisions? Answer Entry Date Author No 04/16/2014 10:06 AM Danilo Roberts RN documented in this encounter Plan of Treatment Not on file documented as of this encounter Visit Diagnoses Not on filedocumented in this encounter Care Teams Spool Winder Relationship Specialty Start Date End Date Valentin Tello MD PCP - General Endocrinology 03/04/14 Bina Carranza MSW [place] Cloth Finishing Range Back Tender 03/08/14 documented as of this encounter
--- OUTSIDE RECORDS SUMMARY | 2024-11-19 15:50 | XMS_ITS | Clinical Summary ---
Author Organization [facility] Address [address] [place] [address] Care Team Providers Care Call Worker Person Name Role Phone Unavailable Primary Care Provider Unavailabl e Social History Tobacco Use Types Packs/Day Years Used Date Smoking Tobacco: Never Assessed Sex and Gender Information Value Date Recorded Sex Assigned at Not on file Legal Sex Male 9:37 PM CDT Gender Identity Not on file Sexual Orientation Not on file Last Filed Vital Signs Vital Sign Reading Time Taken Comments Blood Pressure 98/60 08/07/2016 4:32 PM CDT Pulse 90 08/07/2016 4:32 PM CDT Temperature - - Respiratory Rate - - Oxygen Saturation - - Inhaled Oxygen Concentration - - Weight - - Height - - Body Mass Index - - Plan of Treatment Health Maintenance Due Date Last Done Comments Colorectal Cancer Screening Colonoscopy (10 Years) 1969 Annual Physical 1972 Hepatitis C 06/13/1987 DTaP, Tdap and Td Vaccines ( 1 - Tdap) 1988 Hepatitis B Vaccines (1 of 3 - 19+ 3-dose series) 1988 Pneumococcal Vaccine: 50+ Ye ars (1 of 1 - PCV) 06/13/2019 Zoster Vaccines (1 of 2) 06/13/2019 COVID-19 Vaccine (1 - 2023-2 5 season) 2024 Meningococcal B Vaccine Aged Out No l onger eligible based on patient's age to complete this topic Meningococcal Vaccine Aged Out No sukhjinder pat eligible based on patient's age to complete this topic RSV Immunizations Under 20 Months Aged Out No longer eligible based on patient's age to complete this topic
--- OUTSIDE RECORDS SUMMARY | 2024-11-19 15:50 | XMS_ITS | Encounter Summary ---
Author Organization [facility] Health Address [address] [facility] [place] [address] Care Team Providers Care Refrigeration Houseman Name Role Phone Valentin Tello MD Primary Care Provider [phone] Bina Carranza DENTAL LABORATORY TECHNOLOGY TEACHER Unavailable [phone] Encounter Details Date Type Department Care Team (Late st Contact Info) Description 07/10/2016 [facility] Outpatient Visit [facility] Orthopedics - Radiology [address] [place] [address] Jos Wilkins MD [address] [facility] [address] [place] [address] Social History Tobacco Use Types Packs/Day Years Used Date Smoking Tobacco: Never Alcohol Use Standard Drinks/Week Comments Yes 0 (1 standard drink = 0.6 oz pur e alcohol) once a week Sex and Gender Information Value Date Recorded Sex Assigned at Not on file 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 Answer Date of Assessment Author No 07/10/2016 12:09 PM Lore Fernandez RN * Is person blind or have serious difficulty seeing? Answer Date of Assessment Author No 07/10/2016 12:09 PM Lore Fernandez RN * Does person have serious difficulty walking/climbing stairs? Answer Date of Assessment Author Yes 07/10/2016 12:09 PM Lore Fernandez RN * Does person have difficulty dressing/bathing? Answer Date of Assessment Author Yes 07/10/2016 12:09 PM Lore Fernandez RN * Does person have difficulty doing errands alone? Answer Date of Assessment Author No 07/10/2016 12:09 PM Lore Fernandez RN documented as of this encounter Mental Status * Does person have difficulty concentrating/remembering/making decisions? Answer Entry Date Author No 07/10/2016 12:09 PM Lore Fernandez RN documented in this encounter Plan of Treatment Not on file documented as of this encounter Visit Diagnoses Not on filedocumented in this encounter Care Teams Refrigeration Houseman Relationship Specialty Start Date End Date Valentin Tello MD PCP - General Endocrinology 03/04/[address] MSW [place] Vat Washer 03/08/14 documented as of this encounter
[2024-11-19 15:59] VITALS: BP 118/72; PULSE 103; RESP 16; TEMP 37.3; O2SAT 98
--- OUTSIDE RECORDS SUMMARY | 2024-11-19 16:42 | XMS_ITS | Encounter Summary ---
Author Organization [facility] Health Address [address] 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 Answer Entry Date Author No 04/16/2014 10:06 AM ELLI Quiles, As hernandez Ascencio RN documented in this encounter Plan of Treatment Not on file documented as of this encounter Visit Diagnoses Not on filedocumented in this encounter Care Teams Welder Production Line Gas Relationship Specialty Start Date End Date Valentin Tello MD PCP - General Endocrinology 03/04/14 Bina Carranza MSW [place] Representative Government Relations 03/08/14 documented as of this encounter
--- OUTSIDE RECORDS SUMMARY | 2024-11-19 16:42 | XMS_ITS | Encounter Summary ---
Author Organization [facility] Health Address [address] [place] [address] Care Team Providers Care Striping Machine Operator Name Role Phone Valentin Tello MD Primary Care Provider [phone] Bina Carranza STUDENT LIFE COORDINATOR Unavailable [phone] Encounter Details Date Type Department Care Team (Late st Contact Info) Description 07/10/2016 [facility] Outpatient Visit [facility] Orthopedics - Radiology [address] [place] [address] Jos Wilkins MD [address] [facility] [address] [place] [address] Social History Tobacco Use Types Packs/Day Years Used Date Smoking Tobacco: Never Alcohol Use Standard Drinks/Week Comments Yes 0 (1 standard drink = 0.6 oz pur e alcohol) once a week Sex and Gender Information Value Date Recorded Sex Assigned at Not on file 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
--- OUTSIDE RECORDS SUMMARY | 2024-11-19 16:42 | XMS_ITS | Encounter Summary ---
Author Organization [facility] Health Address [address] [place] [address] Care Team Providers Care Annual Giving Director Name Role Phone Valentin Tello MD Primary Care Provider [phone] Dillon, Bina COORDINATOR SKILL TRAINING PROGRAM Unavailable [phone] Encounter Details Date Type Department Care Team [...] on file Legal Sex Male 6:17 AM TOBACCO WRAPPING MACHINE TENDER Gender Identity Not on file Sexual Orientation [...] on filedocumented in this encounter Care Teams Annual Giving Director Relationship Specialty Start Date End Date Valentin Tello MD PCP - General Endocrinology 03/04/14 Bina Carranza MSW [place] Cobbler Mckay 03/08/14 documented as of this encounter
--- OUTSIDE RECORDS SUMMARY | 2024-11-19 16:42 | XMS_ITS | Encounter Summary ---
Author Organization [facility] Address [address] [place] [address] Care Team Providers Care Craft Manager Name Role Phone Valentin Tello MD Primary Care Provider [phone] Bina Carranza SCIENTIFIC PHOTOGRAPHER Unavailable [phone] Encounter Details Date Type Department Care Team (Late st Contact Info) Description 06/04/2019 Lab Requisition [facility] Care DermPath Lab [address] [facility] [place] [id number] Figueroa Garcia MD [address] [place] [address] Social History Tobacco Use Types Packs/Day Years Used Date Smoking Tobacco: Never Smokeless Tobacco: Never Alcohol Use Standard Drinks/Week Comments Yes 0 (1 standard drink = 0.6 oz pur e alcohol) once a week Sex and Gender Information Value Date Recorded Sex Assigned at Not on file 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 Check margins. 0 4:49 PM [facility] DERMATOPATHOLOGY LABORATORY Gross Description Specimen A: Received is one formalin filled container labeled with the patient's name and designated midline upper back. The specimen consists of a shave biopsy measuring [id number]. Jar 0. Specimen B: Received is one formalin filled container labeled with the patients name and designated left jawline. The specimen consists of a shave removal measuring 7h0b8jm. The margin is inked green. Jar 0. Specimen C: Received is one formalin filled container labeled with the patients name and designated right mid lat upper arm. The specimen consists of a shave removal measuring 57t90n0ii. The margin is inked green. Jar 0. 0 4:49 PM [facility] DERMATOPATHOLOGY LABORATORY Microscopic Description Specimen A. SKIN, [...] margin of the specimen. 0 4:49 PM [facility] DERMATOPATHOLOGY LABORATORY Disclaimer An external and internal positive and negative controls are appropriate for the histochemical, immunohistochemical and immunofluorescence stain(s) in this case (if any), except where stated explicitly. The performance characteristics of the stain(s) cited in this report were developed and its performance characteristic determined by the Dermatopathology Laboratory at [facility], directed by Dr. Reva Jimenez. These tests need not be, and therefore are not, approved by the [place] Food and Drug Administration. The tests are used for clinical purposes. Billing Codes Specimen Charges Stain Charges 13290 83135 68221 1 1 1 65417 1 0 4:49 PM CDT DERMATOPATHOLOGY LABORATORY [...] DERMATOPATHOLOGY LABORATORY [facility] - Department of Dermatology [address] [place] [address] 5th Floor Lab [address] [phone] documented in this encounter Visit Diagnoses Not on filedocumented in this encounter Care Teams Craft Manager Relationship Specialty Start Date End Date Valentin Tello MD PCP - General Endocrinology 03/04/14 Bina Carranza MSW [place] Container Maker 03/08/14 documented as of this encounter
--- OUTSIDE RECORDS SUMMARY | 2024-11-19 16:42 | XMS_ITS | Encounter Summary ---
Author Organization [facility] Address [address] [place] [address] Care Team Providers Care Supervisor Pullet Farm Name Role Phone Valentin Tello MD Primary Care Provider [phone] Bina Carranza DIRECTOR PAID MEDIA Unavailable [phone] Encounter Details Date Type Department Care Team (Late st Contact Info) Description 08/02/2022 Lab Requisition [facility] - DermPath Lab [address] [place] [address] Figueroa Garcia MD [address] [place] [address] Social History Tobacco Use Types Packs/Day Years Used Date Smoking Tobacco: Never Smokeless Tobacco: Never Alcohol Use Standard Drinks/Week Comments Yes 0 (1 standard drink = 0.6 oz pur e alcohol) once a week Sex and Gender Information Value Date Recorded Sex Assigned at Not on file 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 Reva Jimenez. These tests need not be, and therefore are not, approved by the [place] Food and Drug Administration. The tests are used for clinical purposes. Billing Codes Specimen Charges Stain Charges 58999 48536 91267 20712 1 1 1 1 34021 86347 1 1 3 5:43 PM CDT DERMATOPATHOLOGY [...] PATHOLOGY/CYTOLOGY ORD ERABLES Final Result DERMATOPATHOLOGY LABORATORY [facility] Department of Dermatology [facility] Medicine [address] [place] [address], [address] [phone] documented in this encounter Visit Diagnoses Not on filedocumented in this encounter Care Teams Supervisor Pullet Farm Relationship Specialty Start Date End Date Valentin Tello MD PCP - General Endocrinology 03/04/14 Bina Carranza MSW [place] Information Systems Supervisor 03/08/14 documented as of this encounter
--- OUTSIDE RECORDS SUMMARY | 2024-11-19 16:42 | XMS_ITS | Clinical Summary ---
Author Organization [facility] Address [address] [place] [address] Care Team Providers Care Payroll Technician Name Role Phone Valentin Tello MD Primary Care Provider [phone] Bina Carranza ART APPRAISER Unavailable [phone] Source Comments [facility],non-owned Affiliates and Associated Physician Practices is amultiple site organization consisting of ambulatory clinics and hospital sitesin [place], [place], [place] and [place]. This disclosure is being madepursuant to the Care Everywhere program and may not contain all information available regarding this patient. 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 Gender Identity Not on file Sexual Orientation [...] this topic Medical Devices Implanted Type Area Entry Level Programmer Device Identifier Shelf Expiration Date Model / Serial / Lot Y-Knot Rc All Suture Bluffs With Two #2 Hi-Fi Sutures Implanted:Qty: 2 on 03/04/2014 by Jos Wilkins MD at [facility] Left: Shoulder Conmed Benjy 08/18/2014 [facility]02 / / [id number] Y-Knot Rc All-Suture Bluffs With Two #2 Hi-Fi Sutures Implanted:Qty: 1 on 03/04/2014 by Jos Wilkins MD at [facility] Left: Shoulder Conmed Benjy 10/19/2018 [facility] / / [id number] [place]ok Suture Bluffs Implanted:Qty: 1 on 03/04/2014 by Jos Wilkins MD at [facility] Left: Shoulder Conmed Benjy 10/19/2018 CK-4500 / / [id number] [place]oplok Suture Bluffs Implanted:Qty: 2 on 03/04/2014 by Jos Wilkins MD at [facility] Left: Shoulder Conmed Benjy 08/18/2018 CKP-4500 / / [id number] [employer] Ft Suture Bluffs Withthree #2 Hi-Fi Sutures Implanted:Qty: 1 on 03/04/2014 by Jos Wilkins MD at [facility] Left: Shoulder Conmed Benjy 11/19/2015 CF-5503 / / [id number] [place]oplok Suture Bluffs Implanted:Qty: 1 on 03/04/2014 by Jos Wilkins MD at [facility] Left: Shoulder Conmed Benjy 08/18/2018 CKP-3500 / / [id number] 4.5 Mm Peek Bluffs Implanted:Qty: 1 on 07/10/2016 by Jos Wilkins MD at [facility] Right: Shoulder [facility] [id number] 11/17/2020 [id number] / / [id number] Quattro X Suture Bluffs 5.5 Mm Peek Implanted:Qty: 1 on 07/10/2016 by Jos Wilkins MD at [facility] Right: Shoulder [facility] 03/20/2021 [id number]-[id number] / / [id number] 4.5 Mm Peek Bluffs Implanted:Qty: 1 on 07/10/2016 by Jos Wilkins MD at [facility] Right: Shoulder [facility] [id number] 11/17/2020 [id number] / / [id number] 5.5 Mm Triple Loaded Suture Bluffs Implanted:Qty: 1 on 07/10/2016 by Jos Wilkins MD at [facility] Right: Shoulder [facility] [id number] 11/17/2020 [id number] / / [id number] Insurance [facility] SELF PAY NO INSURANCE Member Subscriber Plan / Payer (Ef fective for All Dates) Name:Panchito Rodney Member ID:Not on file Relation to Subscriber:Not on file Name:PANCHITO RODNEY Subscriber ID:Not on file (Home) Address: [address] [place] [address] Payer ID:Not on file Group ID:Not on file Type:Self Pay Address: [place], [place] [facility] DEPT OF LABOR Advance Directives * Full Code (Latest Code Status on File) Date Activated Date Inactivated Comments 07/10/2016 7:07 PM 07/17/2016 4:26 PM * Full Code Date Activated Date Inactivated Comments 03/04/2014 7:28 PM 04/16/2014 1:22 PM Care Teams Payroll Technician Relationship Specialty Start Date End Date Valentin Tello MD PCP - General Endocrinology 03/04/14 Bina Carranza MSW [place] Manager Technical Support 03/08/14
--- OUTSIDE RECORDS SUMMARY | 2024-11-19 16:42 | XMS_ITS | Encounter Summary ---
Author Organization [facility] Address [address] [facility] [place] [address] Care Team Providers Care Superintendent Storage Area Name Role Phone Valentin Tello MD Primary Care Provider [phone] Bina Carranza TRAVEL ACCOMMODATION INSPECTOR Unavailable [phone] Encounter Details Date Type Department Care Team (Late st Contact Info) Description 10/30/2019 Lab Requisition [facility] Care DermPath Lab [address] [facility] [place] [id number] Figueroa Garcia MD [address] [place] [address] Social History Tobacco Use Types Packs/Day Years Used Date Smoking Tobacco: Never Smokeless Tobacco: Never Alcohol Use Standard Drinks/Week Comments Yes 0 (1 standard drink = 0.6 oz pur e alcohol) once a week Sex and Gender Information Value Date Recorded Sex Assigned at Not on file 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 The margin is inked green. Jar 0. Specimen B: Received is one formalin filled container labeled with the patient's name and designated right lat upper back below shoulder. The specimen consists of a shave biopsy measuring 80x9y9ar. The margin is inked green. Jar 0. Specimen C: Received is one formalin filled container labeled with the patients name and designated left lat upper back below shoulder. The specimen consists of a shave removal measuring [id number]. The margin is inked green. Jar 0. Specimen D: Received is one formalin filled container labeled with the patients name and designated right upper back med to scapula. The specimen consists of a shave removal measuring 5s5s2aq. The margin is inked green. Jar 0. [...] characteristic determined by the Dermatopathology Laboratory at [facility], directed by Dr. Reva Jimenez. These tests need not be, and therefore are not, approved by the [place] Food and Drug Administration. The tests are used for clinical purposes. Billing Codes Specimen Charges Stain Charges 46602 71019 09365 45147 1 1 1 1 0 6:01 PM [...] PATHOLOGY/CYTOLOGY ORD ERABLES Final Result DERMATOPATHOLOGY LABORATORY [facility] - Department of Dermatology [facility] Medicine [address] [place] [address], [address] [phone] documented in this encounter Visit Diagnoses Not on filedocumented in this encounter Care Teams Superintendent Storage Area Relationship Specialty Start Date End Date Valentin Tello MD PCP - General Endocrinology 03/04/14 Bina Carranza MSW [place] Barrel Liner 03/08/14 documented as of this encounter
--- OUTSIDE RECORDS SUMMARY | 2024-11-19 16:42 | XMS_ITS | Encounter Summary ---
Author Organization [facility] Address [address] [facility] [place] [address] Care Team Providers Care Shake Sawyer Name Role Phone Valentin Tello MD Primary Care Provider [phone] Bina Carranza DIRECTOR OF RESERVATIONS Unavailable [phone] Encounter Details Date Type Department Care Team (Late st Contact Info) Description 07/04/[address] [facility] Outpatient Visit 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 Answer Date of Assessment Author No 04/16/2014 10:06 AM DYE PADDER OPERATOR Danilo Quiles RN * Is person blind [...] on filedocumented in this encounter Care Teams Shake Sawyer Relationship Specialty Start Date End Date Valentin Tello MD PCP - General Endocrinology 03/04/14 Bina Carranza MSW [place] Technology Recruiter 03/08/14 documented as of this encounter
--- OUTSIDE RECORDS SUMMARY | 2024-11-19 16:42 | XMS_ITS | Clinical Summary ---
Author Organization [facility] Address [address] [place] [address] Care Team Providers Care Eyeletter Name Role Phone Unavailable Primary Care Provider [...]
[2024-11-19 17:18] LABS: Hematocrit 39.1 % (42.0-52.0); Hemoglobin 12.7 g/dL (14.0-18.0); Immature Granulocyte Percent A 0.4 % (0-0.5); Lymphocytes Absolute Auto 1.13 K/mm3 (0.9-3.2); Mean Corpuscular HGB Conc 32.5 g/dl (32-36); Mean Corpuscular Hemoglobin 29.7 pg (26-34); Mean Corpuscular Volume 91.4 fl (80-100); Nucleated Red Blood Cells Absolute Auto 0.000 K/mm3 (0.0-0.012); Nucleated Red Blood Cells Perc 0.0 % (0.0-0.2); Platelet Count Result 202 k/mm3 (150-375); Red Blood Count 4.28 M/mm3 (4.6-6.20); White Blood Count 11.3 K/mm3 (4.5-10.0)
[2024-11-19 17:30] LABS: Alanine Aminotransferase 29 U/L (6-50); Albumin Level 4.1 g/dL (3.5-5.1); Alkaline Phosphatase 70 U/L (38-126); Anion Gap 10 mmol/L (4-12); Aspartate Amino Transferase 36 U/L (17-59); Bilirubin,Total 0.6 mg/dL (0.2-1.3); Blood Urea Nitrogen 29 mg/dL (9-20); Calcium 8.9 mg/dL (8.4-10.2); Carbon Dioxide 21 mmol/L (22-30); Chloride 105 mmol/L (98-107); Estimated CRCL calculation 103 ml/min; Estimated Glomerular Filt Rate > 60; Glucose 118 mg/dL (65-110); Potassium 3.9 mmol/L (3.4-5.0); Sodium 136 mmol/L (137-145); Total Protein 7.1 g/dL (6.3-8.2)
--- NOTE | 2024-11-19 18:22 | ED_ITS ---
HPI - General Adult General Chief complaint: Extremity Injury, Upper Stated complaint: R elbow swollen Time Seen by Provider: 11/19/24 16:34 History of Present Illness HPI narrative: This is a pleasant 54-year-old male with C6-C7 quadriplegia presenting with right elbow swelling. Patient had an abrasion on his elbow which he has been treating for the last 6 weeks. However yesterday he noticed increased redness and swelling to his right elbow. He has no sensation in that area and has not noted any increased pain. He has felt hot and cold at home. He has not taken a temperature. He has been using Motrin with some improvement. Patient has a history cellulitis in his left upper extremity with abscess. 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 He lives alone. He is dependent on wheelchair for mobilization. He is a lifelong nonsmoker. He used to drink 2 drinks a night on average but has not done so over the last year. He denies illicit substance use. He has 2 daughters. Smoking status: Never smoker Alcohol intake: former Drinks per week: 1 Substance use: never Do You Feel Safe in your Home?: Yes Lack of Transportation: No Lack of Food: Never True Current Housing: I Have Housing Concerned About Future Housing: No Difficulty Paying Gas/Electric Bills: No Difficulty Paying for Meds: No Currently Unemployed: No Education: Master's Degree or Higher Difficulty w/ Childcare or Family Care: No Living arrangements: with family Spiritual care concerns: No Exam 2 Narrative: APPEARANCE: No apparent distress. Pleasant, polite Head: atraumatic. EYES: EOMI, NOSE: Atraumatic NECK: Trachea midline RESPIRATORY: No increased rate of breathing CARDIOVASCULAR: RRR, ABDOMINAL: Non-distended MUSCULOSKELETAl: No obvious deformities NEURO: Alert. Moving 4/4 extremities SKIN:: Focal exam of the right upper extremity revealed redness with an area of central fluctuance just proximal to the elbow. Point of care ultrasound showed a abscess with surrounding cellulitis. PSYCHIATRIC: Normal affect Course Vital Signs Vital signs: Vital Signs Temperature 99.1 F 11/19/24 15:59 Pulse Rate 103 H 11/19/24 15:59 Respiratory Rate 16 11/19/24 15:59 Blood Pressure 118/72 11/19/24 15:59 Pulse Oximetry 98 11/19/24 15:59 Temperature 99.1 F 11/19/24 15:59 Pulse Rate 103 H 11/19/24 15:59 Respiratory Rate 16 11/19/24 15:59 Blood Pressure 118/72 11/19/24 15:59 Pulse Oximetry 98 11/19/24 15:59 Procedures Abscess I/D upper extremity: Date of Incision: 11/19/24 Local Anesthetic: bupivacaine 0.25% Amount of anesthesia used (mL): 8 Technique: incised with #11 blade Amount of fluid expressed (mL): 10 Irrigation: Yes Packing used?: plain I&D Results: Pus and Blood Medical Decision Making [facility] Narrative Medical decision making narrative: -Course: 54-year-old male presenting with abscess and cellulitis to his right upper extremity. I&D was performed. Patient given IV antibiotics. Discussed admission with versus discharge with the patient and he would like to trial a course of outpatient management. Patient will be discharged on Keflex. He is instructed to follow-up with primary care physician in 24-48 hours for packing removal and a wound check. I made it very clear that he is high risk for progression to sepsis and if he is getting worse he needs to return to emergency department immediately. Patient has verbalized his understanding. -DDX includes but is not limited to: Cellulitis, abscess, sepsis Vital Signs Vital Signs: Vital Signs Temperature 99.1 F 11/19/24 15:59 Pulse Rate 103 H 11/19/24 15:59 Respiratory Rate 16 11/19/24 15:59 Blood Pressure 118/72 11/19/24 15:59 Pulse Oximetry 98 11/19/24 15:59 Temperature 99.1 F 11/19/24 15:59 Pulse Rate 103 H 11/19/24 15:59 Respiratory Rate 16 11/19/24 15:59 Blood Pressure 118/72 11/19/24 15:59 Pulse Oximetry 98 11/19/24 15:59 Lab Data 11/19/24 17:02 11/19/24 17:02 Labs: Lab Results 11/19/24 Range/Units 17:02 WBC 11.3 H (4.5-10.0) K/mm3 RBC 4.28 L (4.6-6.20) M/mm3 Hgb 12.7 L (14.0-18.0) g/dL Hct 39.1 L (42.0-52.0) % MCV 91.4 (80-100) fl MCH 29.7 (26-34) pg MCHC 32.5 (32-36) g/dl RDW 13.9 (11.5-14.5) % Plt Count 202 (150-375) k/mm3 MPV 9.2 (7.4-10.4) fl Immature Gran % (Auto) 0.4 (0-0.5) % Neut % (Auto) 79.4 H (45.5-73.1) % Lymph % (Auto) 10.0 L (18.3-44.2) % Socorro % (Auto) 9.7 H (2.6-8.5) % Eos % (Auto) 0.2 (0-4.4) % Baso % (Auto) 0.3 (0.2-1.2) % Lymph # (Auto) 1.13 (0.9-3.2) K/mm3 [place] # (Auto) 1.1 H (0.1-0.6) K/mm3 Eos # (Auto) 0.0 (0-0.3) K/mm3 Baso # (Auto) 0.0 (0.0-0.1) K/mm3 Abs Immat Gran (auto) 0.05 H (0.00-0.031) K/mm3 Absolute Neuts (auto) 9.0 H (1.3-6.7) K/mm3 Absolute Nucleated RBC 0.000 (0.0-0.012) K/mm3 Nucleated RBC % 0.0 (0.0-0.2) % Sodium 136 L (137-145) mmol/L Potassium 3.9 (3.4-5.0) mmol/L Chloride 105 (98-107) mmol/L Carbon Dioxide 21 L (22-30) mmol/L Anion Gap 10 (4-12) mmol/L BUN 29 H D (9-20) mg/dL Creatinine 0.72 (0.7-1.3) mg/dL Estim Creat Clear Calc 103 ml/min Estimated GFR > 60 (59 - ) Glucose 118 H (65-110) mg/dL Calcium 8.9 (8.4-10.2) mg/dL Total Bilirubin 0.6 (0.2-1.3) mg/dL AST 36 (17-59) U/L ALT 29 (6-50) U/L Alkaline Phosphatase 70 (38-126) U/L Total Protein 7.1 (6.3-8.2) g/dL Albumin 4.1 (3.5-5.1) g/dL Discharge Plan Discharge Clinical Impression: Cellulitis, Abscess Patient Disposition: Home Condition: Stable Instructions: Antibiotic Form Additional Instructions: You were seen emergency department for an abscess. It was drained and packing was placed. Packing needs to be removed in 24-48 hours. Please follow-up with your primary care physician during that period for a wound check. Please make sure that you are taking the antibiotics every 6 hours for 7 days. If you feel your condition is getting worse or the cellulitis is spreading away to return to the emergency department immediately for re-evaluation. Patient Language: Croatian Prescriptions: New cephalexin 500 mg capsule 500 mg PO Q6H 7 Days Qty: 28 0RF No Action (DME) Compression Stockings See Rx Instructions .Route .MEDSUPPLY Qty: 1 0RF Rx Instructions: Compression Stockings 20-30 mmHg Wear during the day and off at night. hydrocodone-acetaminophen 5-325 mg tablet 1 - 2 tablet PO Q6H PRN (Reason: pain) Qty: 20 0RF Follow-up/Referrals: Ion Murcia, [Primary Care Provider, Internal Medicine] - 2 Days Referral Note: Abscess w/ cellulitis, Wound check and packing removal
[2024-11-19] MEDS: LACTATED RINGERS 1,000 ML 999 ML IV CONT (18:29)
[2024-11-19] MEDS: KETOROLAC 15 MG/ML VIAL (*BKC) IV PUSH (18:36)
[2024-11-19 19:37] VITALS: BP 120/75; PULSE 96; RESP 18; TEMP 36.9; O2SAT 100
[2024-11-19 19:38] VITALS: BP 120/75; PULSE 96; RESP 18; TEMP 36.9; O2SAT 100
== END 2024-11-19 19:41 | disposition home or self-care (01) ==
PROVIDERS: Emergency Provider Emergency Medicine; PCP Internal Medicine
DX: L02.413 Cutaneous abscess of right upper limb (principal); L03.113 Cellulitis of right upper limb; G82.54 Quadriplegia, C5-C7 incomplete; N31.9 Neuromuscular dysfunction of bladder, unspecified; K59.2 Neurogenic bowel, not elsewhere classified; Z98.1 Arthrodesis status; Z96.611 Presence of right artificial shoulder joint; Z85.820 Personal history of malignant melanoma of skin; Z85.828 Personal history of other malignant neoplasm of skin; Z99.3 Dependence on wheelchair
CPT/HCPCS: 10061; 36415; 73080; 80053; 85025; 96361; 96374; 96375; 99284; J0690; J1885; J7120

== ENCOUNTER 2024-11-20 10:36 | Observation (INO) | payer BC, SELFPAY ==
[2024-11-20] VITALS (22 sets, daily range): BP systolic 72–143; BP diastolic 36–80; PULSE 60–97; RESP 14–20; TEMP 36.4–37.3; O2SAT 96–100; BMI 21.2
--- NOTE | ~2024-11-20 | CT_ITS ---
EXAMINATION: CT UE RT w con DATE: 11/20/2024 13:46 INDICATION: Right upper extremity erythema and edema TECHNIQUE: High resolution computed tomography (CT) of the right upper extremity was performed with 100 mL Omnipaque-350 intravenous contrast. Additional sagittal and coronal reconstructions were performed. Automated exposure control and iterative reconstruction technique were employed. The dose-length product was 1631.16 mGy-cm. COMPARISON: Right elbow radiographs dated 11/20/2024 FINDINGS: Right reverse total shoulder arthroplasty which appears well seated in near- anatomic alignment. There is some fatty atrophy of the right rotator cuff consistent with chronic rotator cuff tears. There is a small right glenohumeral joint effusion with small amount fluid along the superolateral aspect of the femoral head. C6 laminectomy and C6-C7 instrumented posterior spinal fusion with bilateral vertical shayy and laminar hook fixation. Mild osteoarthritis the right elbow without joint effusion. There is soft tissue swelling and prominent subcutaneous edema extending along the posterior aspect of the elbow and distally along the ulnar side of the proximal to mid right forearm. No evident organized abscess. There is a suggestion of a skin ulceration or drainage site at the posterior medial aspect of the right elbow with underlying small foci of gas in the subcutaneous tissues at the posterior medial aspect of the distalmost upper arm. Given the proximity this likely is most likely related to the skin ulceration or drainage site. No gas in the deeper spaces of the arm deep to the superficial muscular fascia or more distal extension of gas to elevate suspicion for necrotizing fasciitis. Mild dependent atelectasis in the right lung and visualized portions of the left lung. Visualized portions of the mediastinum and heart are normal. Liver, gallbladder and right adrenal gland and visualized portion of the pancreas are normal. 1.3 cm left adrenal adenoma. 1.2 cm right renal cyst. Normal appendix. Bladder is normal. No free fluid in the visualized abdomen or pelvis. No evident pathologically enlarged adenopathy in the visualized portions of the chest, abdomen or pelvis. Moderate thoracic spondylosis. IMPRESSION: 1. Soft tissue swelling and prominent subcutaneous edema posterior to the right elbow and proximal to mid right forearm consistent with cellulitis without evident abscess. There are few foci of gas in subcutaneous fat at the posterior medial right elbow likely related to reported recent incision and drainage. No evident more distal extension of gas or gas within the deeper spaces of the arm to elevate suspicion for necrotizing fasciitis which is ultimately a clinical diagnosis. Reviewed, dictated and finalized at location A. IMPRESSION: 1. Soft tissue swelling and prominent subcutaneous edema posterior to the right elbow and proximal to mid right forearm consistent with cellulitis without wayne dent abscess. There are few foci of gas in subcutaneous fat at the posterior me dial right elbow likely related to reported recent incision and drainage. No ev ident more distal extension of gas or gas within the deeper spaces of the arm t o elevate suspicion for necrotizing fasciitis which is ultimately a clinical di agnosis.
--- NOTE | ~2024-11-20 | XR_ITS ---
Examination: XR elbow RT min 3V Clinical History: redness, swelling Comparison: None Technique: 4 views right elbow Findings/impression: 1. No acute fracture or dislocation right elbow. 2. Small round degenerative osteophyte versus chronic injury along coronoid process. 3. Soft tissue injury posteriorly. No radiopaque foreign body. Reviewed, dictated and finalized at location R.
--- OUTSIDE RECORDS SUMMARY | 2024-11-20 10:44 | XMS_ITS | Encounter Summary ---
Author Organization [facility] Address [address] [place] [address] Care Team Providers Care Auto Technician Name Role Phone Valentin Tello MD Primary Care Provider [phone] Bina Carranza CHIEF INFORMATION OFFICER Unavailable [phone] Encounter Details Date Type Department Care Team (Late st Contact Info) Description 10/30/2019 Lab Requisition [facility] Care DermPath Lab [address] [facility] [facility] [place] [id number] Figueroa Garcia MD [address] [place] [address] Social History Tobacco Use Types Packs/Day Years Used Date Smoking Tobacco: Never Smokeless Tobacco: Never Alcohol Use Standard Drinks/Week Comments Yes 0 (1 standard drink = 0.6 oz pur e alcohol) once a week Sex and Gender Information Value Date Recorded Sex Assigned at Not on file 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 The margin is inked green. Jar 0. Specimen B: Received is one formalin filled container labeled with the patient's name and designated right lat upper back below shoulder. The specimen consists of a shave biopsy measuring 51m7p8lc. The margin is inked green. Jar 0. Specimen C: Received is one formalin filled container labeled with the patients name and designated left lat upper back below shoulder. The specimen consists of a shave removal measuring [id number]. The margin is inked green. Jar 0. Specimen D: Received is one formalin filled container labeled with the patients name and designated right upper back med to scapula. The specimen consists of a shave removal measuring [id number]. The margin is inked green. Jar 0. [...] characteristic determined by the Dermatopathology Laboratory at [facility], directed by Dr. Reva Jimenez. These tests need not be, and therefore are not, approved by the [place] Food and Drug Administration. The tests are used for clinical purposes. Billing Codes Specimen Charges Stain Charges 15168 38550 [id number] 1 1 1 1 0 6:01 PM [...] PATHOLOGY/CYTOLOGY ORD ERABLES Final Result DERMATOPATHOLOGY LABORATORY [facility] - Department of Dermatology [facility] Medicine [address] [place] [address], [address] [phone] documented in this encounter Visit Diagnoses Not on filedocumented in this encounter Care Teams Auto Technician Relationship Specialty Start Date End Date Valentin Tello MD PCP - General Endocrinology 03/04/14 Bina Carranza MSW [place] Transfer Knitter 03/08/14 documented as of this encounter
--- OUTSIDE RECORDS SUMMARY | 2024-11-20 10:44 | XMS_ITS | Encounter Summary ---
Author Organization [facility] Address [address] [facility] [place] [address] Care Team Providers Care Punch Operator Name Role Phone Valentin Tello MD Primary Care Provider [phone] Bina Carranza RECREATION COORDINATOR Unavailable [phone] Encounter Details Date Type Department Care Team (Late st Contact Info) Description 07/10/2016 [facility] Outpatient Visit [facility] Orthopedics - Radiology [address] [place] [address] Jos Wilkins MD [address] [facility] [address] [place] [address] Social History Tobacco Use Types Packs/Day Years Used Date Smoking Tobacco: Never Alcohol Use Standard Drinks/Week Comments Yes 0 (1 standard drink = 0.6 oz pur e alcohol) once a week Sex and Gender Information Value Date Recorded Sex Assigned at Not on file 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
--- OUTSIDE RECORDS SUMMARY | 2024-11-20 10:44 | XMS_ITS | Encounter Summary ---
Author Organization [facility] Address [address] [place] [address] Care Team Providers Care Sap Pi Developer Name Role Phone Valentin Tello MD Primary Care Provider [phone] Bina Carranza SHAFT HEADMAN Unavailable [phone] Encounter Details Date Type Department Care Team (Late st Contact Info) Description 08/02/2022 Lab Requisition [facility] - DermPath Lab [address] [place] [address] Fiugeroa Garcia MD [address] [place] [address] Social History Tobacco Use Types Packs/Day Years Used Date Smoking Tobacco: Never Smokeless Tobacco: Never Alcohol Use Standard Drinks/Week Comments Yes 0 (1 standard drink = 0.6 oz pur e alcohol) once a week Sex and Gender Information Value Date Recorded Sex Assigned at Not on file 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 DermPath Lab Received: 08/02/2022 07:04 [...] by the Dermatopathology Laboratory at [facility], directed by Dr. Reva Jimenez. These tests need not be, and therefore are not, approved by the [place] Food and Drug Administration. The tests are used for clinical purposes. Billing Codes Specimen Charges Stain Charges 19019 [id number] [id number] [id number] 1 1 1 1 48852 45588 1 1 3 5:43 PM CDT DERMATOPATHOLOGY [...] PATHOLOGY/CYTOLOGY ORD ERABLES Final Result DERMATOPATHOLOGY LABORATORY [facility] Department of Dermatology [facility] Medicine [address] [place] [address], [address] [phone] documented in this encounter Visit Diagnoses Not on filedocumented in this encounter Care Teams Sap Pi Developer Relationship Specialty Start Date End Date Valentin Tello MD PCP - General Endocrinology 03/04/14 Bina Carranza MSW [place] Teaching Aide 03/08/14 documented as of this encounter
--- OUTSIDE RECORDS SUMMARY | 2024-11-20 10:44 | XMS_ITS | Clinical Summary ---
Author Organization [facility] Address [address] [place] [address] Care Team Providers Care Shipping Lead Person Name Role Phone Valentin Tello MD Primary Care Provider Bina Carranza ANGLE SHEAR SET UP OPERATOR Unavailable [phone] Source Comments [facility],non-owned Affiliates and Associated Physician Practices is amultiple site organization consisting of ambulatory clinics and hospital sitesin [place], [place], [place] and [place]. This disclosure is being madepursuant to the Care Everywhere program and may not contain all information available regarding this patient. 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 Gender Identity Not on file Sexual Orientation [...] this topic Medical Devices Implanted Type Area Dog Races Manager Device Identifier Shelf Expiration Date Model / Serial / Lot Y-Knot Rc All Suture [place]te With Two #2 Hi-Fi Sutures Implanted:Qty: 2 on 03/04/2014 by Jos Wilkins MD at [facility] Left: Shoulder Conmed Benjy 08/18/2014 [facility] / / [id number] Y-Knot Rc All-Suture [place]te With Two #2 Hi-Fi Sutures Implanted:Qty: 1 on 03/04/2014 by Jos Wilkins MD at [facility] Left: Shoulder Conmed Benjy 10/19/2018 [facility] / / [id number] Poplok Suture Butte Implanted:Qty: 1 on 03/04/2014 by Jos Wilkins MD at [facility] Left: Shoulder Conmed Benjy 10/19/2018 CK-4500 / / [id number] Poplok Suture Butte Implanted:Qty: 2 on 03/04/2014 by Jos Wilkins MD at [facility] Left: Shoulder Conmed Benjy 08/18/2018 CKP-4500 / / [id number] Genesys Cross Ft Suture Butte Withthree #2 Hi-Fi Sutures Implanted:Qty: 1 on 03/04/2014 by Jos Wilkins MD at [facility] Left: Shoulder Conmed Benjy 11/19/2015 CF-5503 / / [id number] Poplok Suture Butte Implanted:Qty: 1 on 03/04/2014 by Jos Wilkins MD at [facility] Left: Shoulder Conmed Benjy 08/18/2018 CKP-3500 / / [id number] 4.5 Mm Peek Butte Implanted:Qty: 1 on 07/10/2016 by Jos Wilkins MD at [facility] Right: Shoulder [facility] [id number] 11/17/2020 [id number] / / [id number] Quattro X Suture Butte 5.5 Mm Peek Implanted:Qty: 1 on 07/10/2016 by Jos Wilkins MD at [facility] Right: Shoulder [facility] 03/20/2021 CM-9255 / / [id number] 4.5 Mm Peek Butte Implanted:Qty: 1 on 07/10/2016 by Jos Wilkins MD at [facility] Right: Shoulder [facility] [id number] 11/17/2020 [id number] / / [id number] 5.5 Mm Triple Loaded Suture Butte Implanted:Qty: 1 on 07/10/2016 by Jos Wilkins MD at [facility] Right: Shoulder [facility] [id number] 11/17/2020 [id number] / / [id number] Insurance [facility] SELF PAY NO INSURANCE Member Subscriber Plan / Payer (Ef fective for All Dates) Name:Panchito Rodney Member ID:Not on file Relation to Subscriber:Not on file Name:PANCHITO RODNEY Subscriber ID:Not on file (Home) Address: [address] [place] [address] Payer ID:Not on file Group ID:Not on file Type:Self Pay Address: [place], [place] [facility] DEPT OF LABOR Advance Directives * Full Code (Latest Code Status on File) Date Activated Date Inactivated Comments 07/10/2016 7:07 PM 07/17/2016 4:26 PM * Full Code Date Activated Date Inactivated Comments 03/04/2014 7:28 PM 04/16/2014 1:22 PM Care Teams Shipping Lead Person Relationship Specialty Start Date End Date Valentin Tello MD PCP - General Endocrinology 03/04/14 Bina Carranza MSW [place] Fire Support Man 03/08/14
--- OUTSIDE RECORDS SUMMARY | 2024-11-20 10:44 | XMS_ITS | Encounter Summary ---
Author Organization [facility] Address [address] 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
--- OUTSIDE RECORDS SUMMARY | 2024-11-20 10:44 | XMS_ITS | Clinical Summary ---
Author Organization [facility] Address [address] [place] [address] Care Team Providers Care Scrubber Operator Name Role Phone Ion Murcia DO Primary Care Provider [phone] Valentin Martinez PT Unavailable [phone] Allergies Active Allergy Reactions Criticality Noted Date [...] (02/23/2021): Added automatically from request for surgery [id number] Tetraplegia 01/02/2021 Neurogenic bowel 01/02/2021 Neurogenic bladder 01/02/2021 Rotator cuff tear arthropathy of right shoulder 11/14/2020 Overview (11/14/2020): Added automatically from request for surgery [id number] Right ureteral stone 10/15/2017 Overview (10/15/2017): Added automatically from request for surgery [id number] EKG abnormalities 10/13/2017 Assessment & Plan (10/13/2017 [...] (10/12/2017): Added automatically from request for surgery [id number] Assessment & Plan (10/13/2017 3:48 AM CDT): -UTI in setting of obstructing stone. -Urology with plan to take to OR in morning or sooner if febrile/clinical change -f/u urine cx -cont flomax, cipro -clark Sprain of rotator cuff capsule 11/05/2013 Arthralgia of shoulder 06/30/2013 Encounters Date Type Department Care Team Description 10/26/2024 11:20 PM CDT - 10/26/2024 11:21 PM CDT Emergency [facility] Emergency Department [address] [place] [address] Brad Jacob MD Urinary retention (Primary Dx) [...] on file Legal Sex Male 2:33 AM RAG ROOM SUPERVISOR Gender Identity Male 02/13/2021 11:12 AM RAG ROOM SUPERVISOR Sexual Orientation Straight 02/13/2021 11 :12 AM RAG ROOM SUPERVISOR Obstetrics History Last Filed Vital Signs Vital [...] this topic Medical Devices Implanted Type Area Quill Machine Tender Device Identifier Shelf Expiration Date Model / Serial / Lot Tornier Inc [id number] Tornier Aequalis Perform Od29 Mm Lateralize Augment Reverse Shoulder +3 Mm Baseplate Glenoid - [id number] - [id number] Implanted:Qty: 1 on 01/20/2021 by Darci Bermeo MD at [facility] Plate Right: Arm Zurrba Inc [id number] 12/23/2024 [id number] / [id number] / [id number] [employer] [id number] Universa 6fr 24cm Radiopaque Positioner Compressor Operator Portable Braid Tether - [id number] Implanted:Qty: 1 on 10/23/2017 by Js Dsouza MD at [facility] Stent Right: Ureter [employer] [id number] 09/19/2019 [id number] / / [id number] Zurrba Inc Ghi339 Aequalis Perform 7mm Reverse Screw Bone Sterile Latex Free - [id number] - [id number] Implanted:Qty: 1 on 01/20/2021 by Darci Bermeo MD at [facility] Right: Arm [employer]rba Inc [id number] 09/07/2025 [id number] / [id number] / [id number] Tornier Inc [id number] Aequalis Perform Reversed Od5 Mm L46 Mm Peripheral Glenoid Screw Baseplate Nonsterile - [id number] Implanted:Qty: 1 on 01/20/2021 by Darci Bermeo MD at [facility] Right: Arm Doutíssima [id number] / / Tornier Inc Afo366 Aequalis Perform Reversed 5mm 22mm Peripheral Glenoid Screw - [id number] Implanted:Qty: 1 on 01/20/2021 by Darci Bermeo MD at [facility] Right: Arm Hameed [employer] Inc [id number] / / Tornier Inc [id number] Aequalis Perform Reversed 5mm 26mm Peripheral Glenoid Screw - [id number] Implanted:Qty: 1 on 01/20/2021 by Darci Bermeo MD at [facility] Right: Arm [employer] [place] [employer] Inc [id number] / / Tornier Inc [id number] Aequalis Perform Reversed 5mm 34mm Peripheral Glenoid Screw - [id number] Implanted:Qty: 1 on 01/20/2021 by Darci Bermeo MD at [facility] Right: Arm [employer] [place] [employer] Inc GBY770 / / Smooth Biomet Inc [id number] 14mm 130mm Shoulder Stem Humeral Trabecular Metal Tivanium - [id number] - [id number] Implanted:Qty: 1 on 01/20/2021 by Darci Bermeo MD at [facility] Right: Arm Smooth Bi[employer] Inc [id number] 10/01/2030 [id number] / [id number] Smooth Biomet Inc [id number] 14mm 130mm Shoulder Stem Humeral Trabecular Metal Tivanium - [id number] 3 - [id number] Implanted:Qty: 1 on 01/20/2021 by Darci Bermeo MD at [facility] Right: Arm [employer] Inc [id number] 10/01/2030 [id number] / [id number] Tornier Inc [id number] Tornier Aequalis Perform Od39 Mm Lateralize Reverse Shoulder +3 Mm Sphere Glenoid - [id number] - [id number] Implanted:Qty: 1 on 03/02/2021 by Darci Bermeo MD at [facility] Right: Shoulder [employer] [id number] 04/29/2025 [id number] / [id number] / Smooth Biomet Inc [id number] 40mm H+0mm Reverse Retentive Humerus 12d 65d Liner Shoulder - [id number] Implanted:Qty: 1 on 03/02/2021 by Darci Bermeo MD at [facility] Right: Shoulder [employer] Inc [id number] 04/18/2023 [id number] / / [id number] Smooth Biomet Inc [id number] Reverse Shoulder 12d +12mm Spacer Humeral Trabecular Metal Latex Free - [id number] Implanted:Qty: 1 on 03/02/2021 by Darci Bermeo MD at [facility] Right: Shoulder [employer] Inc [id number] 09/05/2030 [id number] / / [id number] Explanted Type Area Quill Machine Tender Device Identifier Shelf Expiration Date Model / Serial / Lot Smooth Biomet Inc [id number] Reverse Shoulder 12d +9mm Spacer Humeral Trabecular Metal Sterile Latex Free - [id number] - [id number] Implanted:Qty: 1 on 01/20/2021 by Darci Bermeo MD at [facility] Explanted:Qty: 1 on 03/02/2021 by Darci Bermeo MD at [facility] Right: Arm Smooth Bi[employer] Inc [id number] 05/18/2029 [id number] / [id number] / [id number] Description:Implant thrown i n trash after explanted from patient Smooth Biomet Inc [id number] 40mm H+0mm Reverse Humerus 7d Standard Liner Shoulder Trabecular - [id number] 0 - [id number] Implanted:Qty: 1 on 01/20/2021 by Darci Bermeo MD at [facility] Explanted:Qty: 1 on 03/02/2021 by Darci Bermeo MD at [facility] Right: Arm Sm[employer] Inc [id number] 12/18/2021 [id number] / [id number] / [id number] Description:Implant thrown i n the trash after explanted from patient [employer] Inc Pyn718 Tornier Aequalis Perform 39mm Reverse Shoulder Standard Sphere - [id number] - [id number] Implanted:Qty: 1 on 01/20/2021 by Darci Bermeo MD at [facility] Explanted:Qty: 1 on 03/02/2021 by Darci Bermeo MD at [facility] Right: Arm Doutíssima [id number] 11/22/2025 [id number] / [id number] / [id number] Description:Implant thrown i n trash after explanted [...] MD LAB BLOOD ORDERABLES Final Re sult [facility] [address] [facility] Department [place] [address] * Differential, auto (10/26/2024 9:33 PM CDT) Neutrophil abs 3.64 1.50 - 6.50 K/cumm Imm gran abs 0.01 0.00 - 0.10 K/cumm [facility] Lymphocyte abs 1.51 0.80 - 3.30 K/cumm [facility] Monocyte abs 0.51 0.20 - 0.80 K/cumm [facility] Eosinophil abs 0.13 0.00 - 0.50 K/cumm [facility] Basophil abs 0.03 0.00 - 0.10 K/cumm [facility] Neutrophil pct 62.5 % [facility] Comment: Interpretive Data Percent cell count reference ranges are not reported, since discordance with absolute values may lead to misinterpretation of CBC data. Current Interpretive Data was last revised on 2017. Imm gran pct 0.2 % [facility] Comment: Interpretive Data Percent cell count reference ranges are not reported, since discordance with absolute values may lead to misinterpretation of CBC data. Current Interpretive Data was last revised on 2017. Lymphocyte pct 25.9 % [facility] Comment: Interpretive Data Percent cell count reference ranges are not reported, since discordance with absolute values may lead to misinterpretation of CBC data. Current Interpretive Data was last revised on 2017. Monocyte pct 8.7 % [facility] Comment: Interpretive Data Percent cell count reference ranges are not reported, since discordance with absolute values may lead to misinterpretation of CBC data. Current Interpretive Data was last revised on 2017. Eosinophil pct 2.2 % [facility] Comment: Interpretive Data Percent cell count reference ranges are not reported, since discordance with absolute values may lead to misinterpretation of CBC data. Current Interpretive Data was last revised on 2017. Basophil pct 0.5 % [facility] Comment: Interpretive Data Percent cell count reference ranges are not reported, since discordance with absolute values may lead to misinterpretation of CBC data. Current Interpretive Data was last revised on 2017. Blood 10/26/2024 9:33 PM CDT 10/26/2024 10:08 PM CDT us Brad Jacob MD LAB BLOOD ORDERABLES Final Re sult [facility] [address] [facility] Department [place] [address] * (ABNORMAL) Urinalysis reflex to microscopic and culture Urine (10/26/2024 9:33 PM CDT) Color, ur Yellow Yellow Clarity, ur Clear Clear [facility] Specific gravity, ur 1.008 1.003 - 1.030 [facility] pH, urine 6.5 [facility] Comment: Interpretive Data U rine pH is affected by diet, medications, systemic acid-base disturbances, and renal tubular function. pH may affect urinary stone formation. For example, urine pH below 6.0 may help reduce the tendency for calcium phosphate stones and pH greater than 6.0 may reduce the tendency for uric acid stone formation. Source: [facility] [employer] Current Interpretive Data was last revised on 2017 Protein, ur ql Trace Negative [facility] Glucose, ur ql Negative Negative [facility] Ketones, ur Trace Negative [facility] Bilirubin, ur Negative Negative [facility] Blood, ur Trace(A) Negative [facility] Urobilinogen, ur <2.0 <2.0 mg/dL [facility] Nitrite, ur Negative Negative [facility] Leukocyte esterase, ur 2+(A) Negative [facility] UA reflex comment Reflex to microscopic UA will be performed. [facility] Urine 10/26/2024 9:33 PM CDT 10/26/2024 9:51 PM CDT us Brad Jacob MD LAB MICROBIOLOGY - GENERAL OR DERABLES Final Result Performing Organization Address City/[facility]/ZIP Co de Phone Number [facility] [address] Department [place] [address] * CBC with auto differential (10/26/2024 9:33 PM CDT) WBC 5.83 3.80 - 9.90 K/cumm Hgb 13.2 13.0 - 17.5 g/dL [facility] Hct 39.1 38.9 - 50.3 % [facility] Plt 246 150 - 400 K/cumm [facility] MPV 9.7 9.1 - 12.3 fL [facility] RBC 4.35 4.30 - 5.80 M/cumm [facility] MCV 89.9 81.3 - 96.4 fL [facility] MCH 30.3 27.1 - 33.3 pg [facility] MCHC 33.8 32.3 - 35.7 g/dL [facility] RDW CV 14.0 11.1 - 14.9 % [facility] RDW SD 45.8 35.7 - 48.1 fL [facility] NRBC abs 0.00 0.00 - 0.01 K/cumm [facility] Blood 10/26/2024 9:33 PM CDT 10/26/2024 10:08 PM CDT Brad Jacob MD LAB BLOOD ORDERABLES Final Re sult [facility] Department [place] [address] * (ABNORMAL) Urinalysis, microscopic only (10/26/2024 9:33 PM CDT) Pathologist [facility] WBC, ur 11-20(A) 0 - 5 /HPF RBC, ur 6-10(A) 0 - 2 /HPF [facility] Epithelial cells, squamous, ur 1-5 0 - 5 /HPF [facility] Bacteria, ur Trace(A) [facility] Culture Reflex Comment Reflex to urine culture will be performed. [facility] Urine 10/26/2024 9:33 PM CDT 10/26/2024 9:51 PM CDT us Brad Jacob MD LAB URINE ORDERABLES Final Re sult Performing Organization Address [facility] Co de Phone Number [facility] [place] [address] * Urine culture Urine (10/26/2024 9:33 PM CDT) Pathologist [facility] Report Final Report: Less than 100,000 colonies/mL (clinically insignificant growth based on current clinical standards) Organism (CLINICALLY INSIGNIFICANT GROWTH [facility] Urine 10/26/2024 9:33 PM CDT 10/26/2024 11:03 PM CDT Narrative [facility] - 10/28/2024 9:53 AM CDT Urine culture reflexed based upon urinalysis results. Testing performed by [facility] Microbiology Laboratory ([phone]) us Brad Jacob MD LAB MICROBIOLOGY - GENERAL OR DERABLES Final Result Performing Organization Address [facility] [place] [address] * (ABNORMAL) Basic metabolic panel (10/26/2024 9:33 PM CDT) Pathologist [facility] Sodium 143 135 - 145 mmol/L Potassium, pl 3.7 3.3 - 4.9 mmol/L [facility] Chloride 106 97 - 110 mmol/L [facility] CO2 25 22 - 32 mmol/L [facility] Anion gap 12 2 - 15 mmol/L [facility] BUN 17 6 - 25 mg/dL [facility] Creatinine 0.69(L) 0.80 - 1.30 mg/dL [facility] Glucose 116 70 - 199 mg/dL [facility] Comment: Interpretive Data Fasting glucose >/= 126 [...] 2022. Calcium 9.8 8.5 - 10.3 mg/dL [facility] Blood 10/26/2024 9:33 PM CDT 10/26/2024 10:08 PM CDT Brad Jacob MD LAB BLOOD ORDERABLES Final Re sult [facility] [address] Department [place] [address] from [place] [address] [place] [address] [place] [address] [facility] Advance Directives For more information, please contact: [phone] * Full Code (Latest Code Status on File) Date Activated Date Inactivated Comments 03/02/2021 5:11 PM 03/03/2021 9:25 PM * Full Code Date Activated Date Inactivated Comments 01/20/2021 1:34 PM 01/22/2021 8:05 PM * Full Code Date Activated Date Inactivated Comments 10/13/2017 3:09 PM 10/13/2017 8:26 PM * Full Code Date Activated Date Inactivated Comments 10/13/2017 3:15 AM 10/13/2017 3:09 PM Care Teams Scrubber Operator Relationship Specialty Start Date End Date Ion Murcia DO PCP - General 10/12/17 [place] [address] [place] [address] Physical Therapist Physical Therapy 04/24/19
--- OUTSIDE RECORDS SUMMARY | 2024-11-20 10:44 | XMS_ITS | Clinical Summary ---
Author Organization [facility] Address [address] [place] [address] Care Team Providers Care Marketing Administrative Assistant Name Role Phone Unavailable Primary Care Provider [...]
--- OUTSIDE RECORDS SUMMARY | 2024-11-20 10:44 | XMS_ITS | Encounter Summary ---
Author Organization [facility] Health Address [address] [place] [address] Care Team Providers Care Residence Life Director Name Role Phone Valentin Tello MD Primary Care Provider [phone] Bina Carranza WASTEWATER OPERATOR Unavailable [phone] Encounter Details Date Type Department Care Team (Late st Contact Info) Description 07/04/2016 [facility] Outpatient Visit [facility] Orthopedics - Radiology [address] [place], [place] [id number] Jos Wilkins MD [address] 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 Answer Date of Assessment Author No 04/16/2014 10:06 AM LOOKBACK COORDINATOR Danilo Quiles RN * Is person blind [...] on filedocumented in this encounter Care Teams Residence Life Director Relationship Specialty Start Date End Date Valentin Tello MD PCP - General Endocrinology 03/04/14 Bina Carranza MSW [place] Airflight Attendants Supervisor 03/08/14 documented as of this encounter
--- OUTSIDE RECORDS SUMMARY | 2024-11-20 10:44 | XMS_ITS | Encounter Summary ---
Author Organization [facility] Address [address] [place] [address] Care Team Providers Care [employer] Police Lieutenant Name Role Phone Valentin Tello MD Primary Care Provider [phone] Bina Carranza REMOTE SENSING ADVISOR Unavailable Encounter Details Date Type Department Care Team (Late st Contact Info) Description 06/04/2019 Lab Requisition [facility] Care DermPath Lab [address], [facility] [place] [id number] Figueroa Garcia MD [address] [place] [address] Social History Tobacco Use Types Packs/Day Years Used Date Smoking Tobacco: Never Smokeless Tobacco: Never Alcohol Use Standard Drinks/Week Comments Yes 0 (1 standard drink = 0.6 oz pur e alcohol) once a week Sex and Gender Information Value Date Recorded Sex Assigned at Not on file 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 Check margins. 0 4:49 PM [facility] DERMATOPATHOLOGY LABORATORY Gross Description Specimen A: Received is one formalin filled container labeled with the patient's name and designated midline upper back. The specimen consists of a shave biopsy measuring [id number]. Jar 0. Specimen B: Received is one formalin filled container labeled with the patients name and designated left jawline. The specimen consists of a shave removal measuring [id number]. The margin is inked green. Jar 0. Specimen C: Received is one formalin filled container labeled with the patients name and designated right mid lat upper arm. The specimen consists of a shave removal measuring [id number]. The margin is inked green. Jar 0. 0 4:49 PM [facility] DERMATOPATHOLOGY LABORATORY Microscopic Description Specimen A. SKIN, [...] margin of the specimen. 0 4:49 PM [facility] DERMATOPATHOLOGY LABORATORY Disclaimer An external and internal positive and negative controls are appropriate for the histochemical, immunohistochemical and immunofluorescence stain(s) in this case (if any), except where stated explicitly. The performance characteristics of the stain(s) cited in this report were developed and its performance characteristic determined by the Dermatopathology Laboratory at [facility], directed by Dr. Reva Jimenez. These tests need not be, and therefore are not, approved by the [place] Food and Drug Administration. The tests are used for clinical purposes. Billing Codes Specimen Charges Stain Charges 53610 62058 64841 1 1 1 39083 1 0 4:49 PM CDT DERMATOPATHOLOGY LABORATORY [...] DERMATOPATHOLOGY LABORATORY [facility] - Department of Dermatology [address] [place] [address] 5th Floor Lab B [address] [phone] documented in this encounter Visit Diagnoses Not on filedocumented in this encounter Care Teams [employer] Lieutenant Relationship Specialty Start Date End Date Valentin Tello MD PCP - General Endocrinology 03/04/14 Bina Carranza MSW [place] Forest Ranger 03/08/14 documented as of this encounter
--- OUTSIDE RECORDS SUMMARY | 2024-11-20 10:44 | XMS_ITS | Encounter Summary ---
Author Organization [facility] Address [address] 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
--- NOTE | 2024-11-20 11:17 | ED_ITS ---
HPI - Extremity Problem General Chief complaint: Extremity Problem,Nontraumatic <Jessa Alfaro PA-C - Last Filed: 11/20/24 16:23> Stated complaint: right arm swelling <DANIEL Ralph Last Filed: 11/20/24 16:23> Time Seen by Provider: 11/20/24 10:57 <DANIEL Ralph Last Filed: 11/20/24 16:23> Source: patient <DANIEL Ralph Last Filed: 11/20/24 16:23> Mode of arrival: wheelchair <DANIEL Ralph Last Filed: 11/20/24 16:23> Limitations: no limitations <DANIEL Ralph Last Filed: 11/20/24 16:23> History of Present Illness HPI Narrative: This is a 54 year old male that presents to the ER for right arm swelling and redness. Worsening since yesterday. Reports the right elbow was red, swollen. Has an abscess in the area drained. Reports redness, swelling moving into the upper arm and down into the lower arm. Also reports fevers, feeling generally ill. Denies decreased ROM. 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 He lives alone. He is dependent on wheelchair for mobilization. He is a lifelong nonsmoker. He used to drink 2 drinks a night on average but has not done so over the last year. He denies illicit substance use. He has 2 daughters. Smoking status: Never smoker Alcohol intake: former Drinks per week: 1 Substance use: never Do You Feel Safe in your Home?: Yes Lack of Transportation: No Lack of Food: Never True Current Housing: I Have Housing Concerned About Future Housing: No Difficulty Paying Gas/Electric Bills: No Difficulty Paying for Meds: No Currently Unemployed: No Education: Master's Degree or Higher Difficulty w/ Childcare or Family Care: No Living arrangements: with family Spiritual care concerns: No <DANIEL Ralph Last Filed: 11/20/24 16:23> Exam 2 Narrative: GENERAL: Well-appearing, well-nourished, and in no acute distress. HEAD: Normocephalic, atraumatic. EYES: EOMI. CHEST: Clear to auscultation. No respiratory distress. No wheezes rales or rhonchi HEART: Regular rate and rhythm. No murmur heard. Normal peripheral pulses. EXTREMITIES: Normal range of motion. Edema with overlying erythema to the right elbow posteriorly. Incision with packing placed. Erythema extending into the upper and lower arm. Normal radial pulse. SKIN: Warm, dry, no rash. NEURO: No focal deficits. Alert and oriented x3. PSYCH: Normal mood and affect <Jessa Alfaro PA-C - Last Filed: 11/20/24 16:23> Course LABORATORY INSPECTOR/PA Physician Supervision This visit was performed by both a physician and an APC. I performed all aspects of the MDM as documented. <Yves Araujo MD - Last Filed: 11/20/24 18:11> Consultations Consultation #1: Spoke with hospitalist about patient and workup who accepts admission < Jessa Alfaro PA-C - Last Filed: 11/20/24 16:23> Date: 11/20/24 <Jessa Alfaro PA-C - Last Filed: 11/20/24 16:23> Vital Signs Vital signs: Vital Signs Temperature 99.0 F 11/20/24 10:51 Pulse Rate 86 11/20/24 10:51 Respiratory Rate 16 11/20/24 10:51 Blood Pressure 85/53 L 11/20/24 10:51 Pulse Oximetry 100 11/20/24 10:51 Oxygen Delivery Room Air 11/20/24 10:51 Temperature 98.2 F 11/20/24 15:40 Pulse Rate 79 11/20/24 17:30 Respiratory Rate 18 11/20/24 17:30 Blood Pressure 99/49 L 11/20/24 17:30 Pulse Oximetry 99 11/20/24 17:30 Oxygen Delivery Room Air 11/20/24 11:00 <Jessa Alfaro PA-C - Last Filed: 11/20/24 16:23> Vital Signs Temperature 99.0 F 11/20/24 10:51 Pulse Rate 86 11/20/24 10:51 Respiratory Rate 16 11/20/24 10:51 Blood Pressure 85/53 L 11/20/24 10:51 Pulse Oximetry 100 11/20/24 10:51 Oxygen Delivery Room Air 11/20/24 10:51 Temperature 98.2 F 11/20/24 15:40 Pulse Rate 79 11/20/24 17:30 Respiratory Rate 18 11/20/24 17:30 Blood Pressure 99/49 L 11/20/24 17:30 Pulse Oximetry 99 11/20/24 17:30 Oxygen Delivery Room Air 11/20/24 11:00 <Yves Araujo MD - Last Filed: 11/20/24 18:11> MDM - Extremity (Nontraumatic) MDM Narrative Medical decision making narrative: Patient presents emergency department for worsening redness and swelling of the right upper extremity after having an abscess drained yesterday. Patient is afebrile. Blood pressure soft upon arrival, this normalized with IV fluids. CBC with leukocytosis to 11.8. Inflammatory markers are elevated. Lactic acid is not elevated. CT scan without evidence of continued abscess. There is evidence of cellulitis. Will be started on IV antibiotics. Spoke with hospitalist about patient and workup who accepts admission <SALLIE Ralph - Last Filed: 11/20/24 16:23> Patient presents emergency department for worsening redness and swelling of the right upper extremity after having an abscess drained yesterday. Patient is afebrile. Blood pressure soft upon arrival, this normalized with IV fluids. CBC with leukocytosis to 11.8. Inflammatory markers are elevated. Lactic acid is not elevated. CT scan without evidence of continued abscess. There is evidence of cellulitis. Will be started on IV antibiotics. Spoke with hospitalist about patient and workup who accepts admission This visit was performed by both a physician and an APC. I performed all aspects of the MDM as documented. <Yves Araujo MD - Last Filed: 11/20/24 18:11> Differential Diagnosis Differential diagnosis: Likely cellulitis and other (Abscess) <Jessa Alfaro PA-C - Last Filed: 11/20/24 16:23> Lab Data Attestation: I reviewed the patient's lab results. <Jessa Alfaro PA-C - Last Filed: 11/20/24 16:23> Result diagrams: 11/20/24 11:39 11/20/24 12:28 <Jessa Alfaro PA-C - Last Filed: 11/20/24 16:23> Labs: Lab Results 11/20/24 11/20/24 Range/Units 11:39 12:28 WBC 11.8 H (4.5-10.0) K/mm3 RBC 4.12 L (4.6-6.20) M/mm3 Hgb 12.3 L (14.0-18.0) g/dL Hct 37.4 L (42.0-52.0) % MCV 90.8 (80-100) fl MCH 29.9 (26-34) pg MCHC 32.9 (32-36) g/dl RDW 14.2 (11.5-14.5) % Plt Count 178 (150-375) k/mm3 MPV 10.0 (7.4-10.4) fl Immature Gran % (Auto) Not Reportable Neut % (Auto) Not Reportable Lymph % (Auto) Not Reportable [place] % (Auto) Not Reportable Eos % (Auto) Not Reportable Baso % (Auto) Not Reportable Lymph # (Auto) Not Reportable [place] # (Auto) Not Reportable Eos # (Auto) Not Reportable Baso # (Auto) Not Reportable Abs Immat Gran (auto) Not Reportable Absolute Neuts (auto) Not Reportable Absolute Nucleated RBC Not Reportable Total Counted 100 Neutrophils % (Manual) 79 H (46-73) % Band Neutrophils % 4 (0-6) % Lymphocytes % (Manual) 6 L (18-44) % Monocytes % (Manual) 11 H (3-9) % Eosinophils % (Manual) 0 (0-4) % Basophils % (Manual) 0 (0-1) % Metamyelocytes % 0 % Myelocytes % 0 % Promyelocytes % (Man) 0 % Nucleated RBC % Not Reportable Abs Neuts (Manual) 9.79 H (1.3-6.7) K/mm3 Abs Lymphs (Manual) 0.70 L (1.1-4.5) K/mm3 Abs Monocytes (Manual) 1.29 H (0.1-0.90) K/mm3 Absolute Eos (Manual) 0.00 L (0.02-0.50) K/mm3 Abs Basophils (Manual) 0.00 (0.0-0.1) K/mm3 Platelet Estimate Adequate (Adequate) Large Platelets Present % Immature Plt Fraction 2.1 (0.9-11.2) % Schistocytes None seen ESR 30 H (0-20) mm/hr PT 15.8 H (11.1-14.7) Seconds INR 1.3 APTT 29.2 (22.3-36.8) Seconds Sodium 139 (137-145) mmol/L Potassium 3.3 L (3.4-5.0) mmol/L Chloride 110 H (98-107) mmol/L Carbon Dioxide 20 L (22-30) mmol/L Anion Gap 9 (4-12) mmol/L BUN 18 D (9-20) mg/dL Creatinine 0.68 L (0.7-1.3) mg/dL Estim Creat Clear Calc 102 ml/min Estimated GFR > 60 (59 - ) Glucose 119 H (65-110) mg/dL Lactic Acid 1.1 (0.7-2.0) mmol/L Calcium 8.3 L (8.4-10.2) mg/dL Magnesium 2.1 (1.6-2.3) mg/dL Total Bilirubin 0.8 (0.2-1.3) mg/dL AST 33 (17-59) U/L ALT 23 (6-50) U/L Alkaline Phosphatase 70 (38-126) U/L C-Reactive Protein 17.1 H (<1.0) mg/dL Total Protein 6.8 (6.3-8.2) g/dL Albumin 3.7 (3.5-5.1) g/dL <Jessa Alfaro PA-C - Last Filed: 11/20/24 16:23> Lab Results 11/20/24 11/20/24 Range/Units 11:39 12:28 WBC 11.8 H (4.5-10.0) K/mm3 RBC 4.12 L (4.6-6.20) M/mm3 Hgb 12.3 L (14.0-18.0) g/dL Hct 37.4 L (42.0-52.0) % MCV 90.8 (80-100) fl MCH 29.9 (26-34) pg MCHC 32.9 (32-36) g/dl RDW 14.2 (11.5-14.5) % Plt Count 178 (150-375) k/mm3 MPV 10.0 (7.4-10.4) fl Immature Gran % (Auto) Not Reportable Neut % (Auto) Not Reportable Lymph % (Auto) Not Reportable [place] % (Auto) Not Reportable Eos % (Auto) Not Reportable Baso % (Auto) Not Reportable Lymph # (Auto) Not Reportable [place] # (Auto) Not Reportable Eos # (Auto) Not Reportable Baso # (Auto) Not Reportable Abs Immat Gran (auto) Not Reportable Absolute Neuts (auto) Not Reportable Absolute Nucleated RBC Not Reportable Total Counted 100 Neutrophils % (Manual) 79 H (46-73) % Band Neutrophils % 4 (0-6) % Lymphocytes % (Manual) 6 L (18-44) % Monocytes % (Manual) 11 H (3-9) % Eosinophils % (Manual) 0 (0-4) % Basophils % (Manual) 0 (0-1) % Metamyelocytes % 0 % Myelocytes % 0 % Promyelocytes % (Man) 0 % Nucleated RBC % Not Reportable Abs Neuts (Manual) 9.79 H (1.3-6.7) K/mm3 Abs Lymphs (Manual) 0.70 L (1.1-4.5) K/mm3 Abs Monocytes (Manual) 1.29 H (0.1-0.90) K/mm3 Absolute Eos (Manual) 0.00 L (0.02-0.50) K/mm3 Abs Basophils (Manual) 0.00 (0.0-0.1) K/mm3 Platelet Estimate Adequate (Adequate) Large Platelets Present % Immature Plt Fraction 2.1 (0.9-11.2) % Schistocytes None seen ESR 30 H (0-20) mm/hr PT 15.8 H (11.1-14.7) Seconds INR 1.3 APTT 29.2 (22.3-36.8) Seconds Sodium 139 (137-145) mmol/L Potassium 3.3 L (3.4-5.0) mmol/L Chloride 110 H (98-107) mmol/L Carbon Dioxide 20 L (22-30) mmol/L Anion Gap 9 (4-12) mmol/L BUN 18 D (9-20) mg/dL Creatinine 0.68 L (0.7-1.3) mg/dL Estim Creat Clear Calc 102 ml/min Estimated GFR > 60 (59 - ) Glucose 119 H (65-110) mg/dL Lactic Acid 1.1 (0.7-2.0) mmol/L Calcium 8.3 L (8.4-10.2) mg/dL Magnesium 2.1 (1.6-2.3) mg/dL Total Bilirubin 0.8 (0.2-1.3) mg/dL AST 33 (17-59) U/L ALT 23 (6-50) U/L Alkaline Phosphatase 70 (38-126) U/L C-Reactive Protein 17.1 H (<1.0) mg/dL Total Protein 6.8 (6.3-8.2) g/dL Albumin 3.7 (3.5-5.1) g/dL <Yves Araujo MD - Last Filed: 11/20/24 18:11> Imaging Data Radiologist's impression: ITS Impressions Upper Extremity CT 11/20/24 13:49 IMPRESSION: 1. Soft tissue swelling and prominent subcutaneous edema posterior to the right elbow and proximal to mid right forearm consistent with cellulitis without evident abscess. There are few foci of gas in subcutaneous fat at the posterior medial right elbow likely related to reported recent incision and drainage. No evident more distal extension of gas or gas within the deeper spaces of the arm to elevate suspicion for necrotizing fasciitis which is ultimately a clinical diagnosis. <Jessa Alfaro PA-C - Last Filed: 11/20/24 16:23> Critical Care Time Critical Care Time Critical Care Time: No <Jessa Alfaro PA-C - Last Filed: 11/20/24 16:23> Discharge Plan Discharge Clinical Impression: Cellulitis Qualifiers: Site of cellulitis: extremity Site of cellulitis of extremity: upper extremity Laterality: right Qualified Code(s): L03.113 - Cellulitis of right upper limb <Jessa Alfaro PA-C - Last Filed: 11/20/24 16:23> Patient Disposition: Still a Patient <Jessa Alfaro PA-C - Last Filed: 11/20/24 16:23> Condition: Stable <DANIEL Ralph Last Filed: 11/20/24 16:23>
[2024-11-20] MEDS: SODIUM CHLORIDE 0.9% IV 1,000 ML 999 ML IV CONT (11:33)
[2024-11-20 11:52] LABS: Hematocrit 37.4 % (42.0-52.0); Hemoglobin 12.3 g/dL (14.0-18.0); Immature Platelet Fraction Pct 2.1 % (0.9-11.2); Mean Corpuscular HGB Conc 32.9 g/dl (32-36); Mean Corpuscular Hemoglobin 29.9 pg (26-34); Mean Corpuscular Volume 90.8 fl (80-100); Platelet Count Result 178 k/mm3 (150-375); Red Blood Count 4.12 M/mm3 (4.6-6.20); White Blood Count 11.8 K/mm3 (4.5-10.0)
--- OUTSIDE RECORDS SUMMARY | 2024-11-20 11:58 | XMS_ITS | Encounter Summary ---
Author Organization [facility] Address [address] [place] [address] Care Team Providers Care Ship Manager Name Role Phone Valentin Tello MD Primary Care Provider [phone] Bina Carranza AUTOMAT WATCHER Unavailable [phone] Encounter Details Date Type Department Care Team (Late st Contact Info) Description 10/30/2019 Lab Requisition [facility] Care DermPath Lab [address] [facility] [place] [id number] Figueroa Garcia MD [address] [place] [address] Social History Tobacco Use Types Packs/Day Years Used Date Smoking Tobacco: Never Smokeless Tobacco: Never Alcohol Use Standard Drinks/Week Comments Yes 0 (1 standard drink = 0.6 oz pur e alcohol) once a week Sex and Gender Information Value Date Recorded Sex Assigned at Not on file 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 The margin is inked green. Jar 0. Specimen B: Received is one formalin filled container labeled with the patient's name and designated right lat upper back below shoulder. The specimen consists of a shave biopsy measuring [id number]. The margin is inked green. Jar 0. Specimen C: Received is one formalin filled container labeled with the patients name and designated left lat upper back below shoulder. The specimen consists of a shave removal measuring [id number]. The margin is inked green. Jar 0. Specimen D: Received is one formalin filled container labeled with the patients name and designated right upper back med to scapula. The specimen consists of a shave removal measuring [id number]. The margin is inked green. Jar 0. [...] characteristic determined by the Dermatopathology Laboratory at [facility], directed by Dr. Reva Jimenez. These tests need not be, and therefore are not, approved by the [place] Food and Drug Administration. The tests are used for clinical purposes. Billing Codes Specimen Charges Stain Charges 94697 15865 53975 15344 1 1 1 1 0 6:01 PM [...] PATHOLOGY/CYTOLOGY ORD ERABLES Final Result DERMATOPATHOLOGY LABORATORY [facility] - Department of Dermatology [facility] Medicine [address] [place] [address], [address] [phone] documented in this encounter Visit Diagnoses Not on filedocumented in this encounter Care Teams Ship Manager Relationship Specialty Start Date End Date Valentin Tello MD PCP - General Endocrinology 03/04/14 Bina Carranza MSW [place] Kiln Fireman 03/08/14 documented as of this encounter
--- OUTSIDE RECORDS SUMMARY | 2024-11-20 11:58 | XMS_ITS | Encounter Summary ---
Author Organization [facility] Address [address] 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
--- OUTSIDE RECORDS SUMMARY | 2024-11-20 11:58 | XMS_ITS | Encounter Summary ---
Author Organization [facility] Address [address] [place] [address] Care Team Providers Care Ward Nurse Name Role Phone Valentin Tello MD Primary Care Provider Bina Carranza AUDITOR MEDICAL CLAIMS Unavailable [phone] Encounter Details Date Type Department Care Team (Late st Contact Info) Description 06/04/2019 Lab Requisition [facility] Care DermPath Lab [address] [facility] [facility] [place] [phone] Figueroa Garcia MD [address] [place] [address] Social History Tobacco Use Types Packs/Day Years Used Date Smoking Tobacco: Never Smokeless Tobacco: Never Alcohol Use Standard Drinks/Week Comments Yes 0 (1 standard drink = 0.6 oz pur e alcohol) once a week Sex and Gender Information Value Date Recorded Sex Assigned at Not on file 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 Check margins. 0 4:49 PM [facility] DERMATOPATHOLOGY LABORATORY Gross Description Specimen A: Received is one formalin filled container labeled with the patient's name and designated midline upper back. The specimen consists of a shave biopsy measuring [id number]. Jar 0. Specimen B: Received is one formalin filled container labeled with the patients name and designated left jawline. The specimen consists of a shave removal measuring [id number]. The margin is inked green. Jar 0. Specimen C: Received is one formalin filled container labeled with the patients name and designated right mid lat upper arm. The specimen consists of a shave removal measuring [id number]. The margin is inked green. Jar 0. 0 4:49 PM [facility] DERMATOPATHOLOGY LABORATORY Microscopic Description Specimen A. SKIN, [...] margin of the specimen. 0 4:49 PM [facility] DERMATOPATHOLOGY LABORATORY Disclaimer An external and internal positive and negative controls are appropriate for the histochemical, immunohistochemical and immunofluorescence stain(s) in this case (if any), except where stated explicitly. The performance characteristics of the stain(s) cited in this report were developed and its performance characteristic determined by the Dermatopathology Laboratory at [facility], directed by Dr. Reva Jimenez. These tests need not be, and therefore are not, approved by the [place] Food and Drug Administration. The tests are used for clinical purposes. Billing Codes Specimen Charges Stain Charges 39698 27361 53144 1 1 1 16260 1 0 4:49 PM CDT DERMATOPATHOLOGY LABORATORY [...] DERMATOPATHOLOGY LABORATORY [facility] - Department of Dermatology [address] [place] [address] 5th Floor Lab B [address] [phone] documented in this encounter Visit Diagnoses Not on filedocumented in this encounter Care Teams Ward Nurse Relationship Specialty Start Date End Date Valentin Tello MD PCP - General Endocrinology 03/04/14 Bina Carranza MSW [place] Field Crop Harvest Contractor 03/08/14 documented as of this encounter
--- OUTSIDE RECORDS SUMMARY | 2024-11-20 11:58 | XMS_ITS | Encounter Summary ---
Author Organization [facility] Health Address [address] 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
--- OUTSIDE RECORDS SUMMARY | 2024-11-20 11:58 | XMS_ITS | Clinical Summary ---
Author Organization [facility] Address [address] [place] [address] Care Team Providers Care Transplant Registered Nurse Name Role Phone Unavailable Primary Care Provider [...]
--- OUTSIDE RECORDS SUMMARY | 2024-11-20 11:58 | XMS_ITS | Clinical Summary ---
Author Organization [facility] Address [address] [place] [address] Care Team Providers Care Tonger Name Role Phone Valentin Tello MD Primary Care Provider [phone] Bina Carranza CRM SOLUTION ARCHITECT Unavailable [phone] Source Comments [facility],non-owned Affiliates and Associated Physician Practices is amultiple site organization consisting of ambulatory clinics and hospital sitesin [place], [place], [place] and [place]. This disclosure is being madepursuant to the Care Everywhere program and may not contain all information available regarding this patient. 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 Gender Identity Not on file Sexual Orientation [...] this topic Medical Devices Implanted Type [facility] Medical Biller Device Identifier Shelf Expiration Date Model / Serial / Lot Y-Knot Rc All Suture Amado With Two #2 Hi-Fi Sutures Implanted:Qty: 2 on 03/04/2014 by Jos Wilkins MD at [facility] Left: Shoulder Conmed Benjy 08/18/2014 [facility] / / [id number] Y-Knot Rc All-Suture Amado With Two #2 Hi-Fi Sutures Implanted:Qty: 1 on 03/04/2014 by Jos Wilkins MD at [facility] Left: Shoulder Conmed Benjy 10/19/2018 [facility] / / [id number] Poplok Suture Amado Implanted:Qty: 1 on 03/04/2014 by Jos Wilkins MD at [facility] Left: Shoulder Conmed Benjy 10/19/2018 CK-4500 / / [id number] Poplok Suture Amado Implanted:Qty: 2 on 03/04/2014 by Jos Wilkins MD at [facility] Left: Shoulder Conmed Benjy 08/18/2018 CKP-4500 / / [id number] [employer] Ft Suture Amado Withthree #2 Hi-Fi Sutures Implanted:Qty: 1 on 03/04/2014 by Jos Wilkins MD at [facility] Left: Shoulder Conmed Benjy 11/19/2015 CF-5503 / / [id number] Poplok Suture Amado Implanted:Qty: 1 on 03/04/2014 by Jos Wilkins MD at [facility] Left: Shoulder Conmed Benjy 08/18/2018 CKP-3500 / / [id number] 4.5 Mm Peek Amado Implanted:Qty: 1 on 07/10/2016 by Jos Wilkins MD at [facility] Right: Shoulder [facility] [id number] 11/17/2020 [id number] / / [id number] Quattro X Suture Amado 5.5 Mm Peek Implanted:Qty: 1 on 07/10/2016 by Jos Wilkins MD at [facility] Right: Shoulder [facility] 03/20/2021 CM-9255 / / [id number] 4.5 Mm Peek Amado Implanted:Qty: 1 on 07/10/2016 by Jos Wilkins MD at [facility] Right: Shoulder [facility] [id number] 11/17/2020 [id number] / / [id number] 5.5 Mm Triple Loaded Suture Amado Implanted:Qty: 1 on 07/10/2016 by Jos Wilkins MD at [facility] Right: Shoulder [facility] [id number] 11/17/2020 [id number] / / [id number] Insurance [facility] SELF PAY NO INSURANCE Member Subscriber Plan / Payer (Ef fective for All Dates) Name:Panchito Rodney Member ID:Not on file Relation to Subscriber:Not on file Name:PANCHITO RODNEY Subscriber ID:Not on file (Home) Address: [address] [place] [address] Payer ID:Not on file Group ID:Not on file Type:Self Pay Address: [place] [facility] DEPT OF LABOR Advance Directives * Full Code (Latest Code Status on File) Date Activated Date Inactivated Comments 07/10/2016 7:07 PM 07/17/2016 4:26 PM * Full Code Date Activated Date Inactivated Comments 03/04/2014 7:28 PM 04/16/2014 1:22 PM Care Teams Tonger Relationship Specialty Start Date End Date Valentin Tello MD PCP - General Endocrinology 03/04/14 Bina Carranza MSW [place] News Commentator 03/08/14
--- OUTSIDE RECORDS SUMMARY | 2024-11-20 11:58 | XMS_ITS | Clinical Summary ---
Author Organization [facility] Address [address] [place] [address] Care Team Providers Care Demo Coordinator Name Role Phone Ion Murcia DO Primary Care Provider [phone] Valentin Martinez PT Unavailable [phone] Allergies Active Allergy Reactions Criticality Noted [...] (02/23/2021): Added automatically from request for surgery [id number] Tetraplegia 01/02/2021 Neurogenic bowel 01/02/2021 Neurogenic bladder 01/02/2021 Rotator cuff tear arthropathy of right shoulder 11/14/2020 Overview (11/14/2020): Added automatically from request for surgery [id number] Right ureteral stone 10/15/2017 Overview (10/15/2017): Added automatically from request for surgery [id number] EKG abnormalities 10/13/2017 Assessment & Plan (10/13/2017 [...] (10/12/2017): Added automatically from request for surgery [id number] Assessment & Plan (10/13/2017 3:48 AM CDT): -UTI in setting of obstructing stone. -Urology with plan to take to OR in morning or sooner if febrile/clinical change -f/u urine cx -cont flomax, cipro -clark Sprain of rotator cuff capsule 11/05/2013 Arthralgia of shoulder 06/30/2013 Encounters Date Type Department Care Team Description 10/26/2024 11:20 PM CDT - 10/26/2024 11:21 PM CDT Emergency [facility] Emergency Department [address] [place] [address] Brad Jacob MD Urinary retention (Primary Dx) [...] on file Legal Sex Male 2:33 AM SNELLER HAND Gender Identity Male 02/13/2021 11:12 AM SNELLER HAND Sexual Orientation Straight 02/13/2021 11 :12 AM SNELLER HAND Obstetrics History Last Filed Vital Signs Vital [...] this topic Medical Devices Implanted Type Area Hi Low Truck Driver Device Identifier Shelf Expiration Date Model / Serial / Lot Tornier Inc [id number] Tornier Aequalis Perform Od29 Mm Lateralize Augment Reverse Shoulder +3 Mm Baseplate Glenoid - [id number] - [id number] Implanted:Qty: 1 on 01/20/2021 by Darci Bermeo MD at [facility] Plate Right: Arm [employer] [id number] 12/23/2024 [id number] / [id number] / [id number] Smeet [employer] Inc [id number] Universa 6fr 24cm Radiopaque Positioner Assistant Director Of Financial Aid Braid Tether - [id number] Implanted:Qty: 1 on 10/23/2017 by Js Dsouza MD at [facility] Stent Right: Ureter Smeet Medical Inc [id number] 09/19/2019 [id number] / / [id number] [employer] Inc Ujj750 Aequalis Perform 7mm Reverse Screw Bone Sterile Latex Free - [id number] - [id number] Implanted:Qty: 1 on 01/20/2021 by Darci Bermeo MD at [facility] Right: Arm [employer] [id number] 09/07/2025 GXY213 / [id number] / [id number] Tornier Inc Dbi598 Aequalis Perform Reversed Od5 Mm L46 Mm Peripheral Glenoid Screw Baseplate Nonsterile - [id number] Implanted:Qty: 1 on 01/20/2021 by Darci Bermeo MD at [facility] Right: Arm [employer] [id number] / / Tornier Inc [id number] Aequalis Perform Reversed 5mm 22mm Peripheral Glenoid Screw - [id number] Implanted:Qty: 1 on 01/20/2021 by Darci Bermeo MD at [facility] Right: Arm H[employer]ed [employer] Inc [id number] / / Tornier Inc [id number] Aequalis Perform Reversed 5mm 26mm Peripheral Glenoid Screw - [id number] Implanted:Qty: 1 on 01/20/2021 by Darci Bermeo MD at [facility] Right: Arm [employer] Inc PON032 / / Tornier Inc [id number] Aequalis Perform Reversed 5mm 34mm Peripheral Glenoid Screw - [id number] Implanted:Qty: 1 on 01/20/2021 by Darci Bermeo MD at [facility] Right: Arm [employer] Technology Inc SXK714 / / Smooth Biomet Inc [id number] 14mm 130mm Shoulder Stem Humeral Trabecular Metal Tivanium - [id number] - [id number] Implanted:Qty: 1 on 01/20/2021 by Darci Bermeo MD at [facility] Right: Arm [employer] [id number] 10/01/2030 [id number] / [id number] Smooth Biomet Inc [id number] 14mm 130mm Shoulder Stem Humeral Trabecular Metal Tivanium - [id number] 3 - [id number] Implanted:Qty: 1 on 01/20/2021 by Darci Bermeo MD at [facility] Right: Arm [employer] Inc [id number] 10/01/2030 [id number] / [id number] Tornier Inc [id number] Tornier Aequalis Perform Od39 Mm Lateralize Reverse Shoulder +3 Mm Sphere Glenoid - [id number] - [id number] Implanted:Qty: 1 on 03/02/2021 by Darci Bermeo MD at [facility] Right: Shoulder [employer] Inc [id number] 04/29/2025 QDO441 / [id number] / Smooth Biomet Inc [id number] 40mm H+0mm Reverse Retentive Humerus 12d 65d Liner Shoulder - [id number] Implanted:Qty: 1 on 03/02/2021 by Darci Bermeo MD at [facility] Right: Shoulder [employer] Inc [id number] 04/18/2023 [id number] / / [id number] Smooth Biomet Inc [id number] Reverse Shoulder 12d +12mm Spacer Humeral Trabecular Metal Latex Free - [id number] Implanted:Qty: 1 on 03/02/2021 by Darci Bermeo MD at [facility] Right: Shoulder [employer] Inc [id number] 09/05/2030 [id number] / / [id number] Explanted Type Area Hi Low Truck Driver Device Identifier Shelf Expiration Date Model / Serial / Lot Smooth Biomet Inc [id number] Reverse Shoulder 12d +9mm Spacer Humeral Trabecular Metal Sterile Latex Free - [id number] - [id number] Implanted:Qty: 1 on 01/20/2021 by Darci Bermeo MD at [facility] Explanted:Qty: 1 on 03/02/2021 by Darci Bermeo MD at [facility] Right: Arm Sm[employer] Bi[employer] Inc [id number] 05/18/2029 [id number] / [id number] / [id number] Description:Implant thrown i n trash after explanted from patient Smooth Biomet Inc [id number] 40mm H+0mm Reverse Humerus 7d Standard Liner Shoulder Trabecular - [id number] - [id number] Implanted:Qty: 1 on 01/20/2021 by Darci Bermeo MD at [facility] Explanted:Qty: 1 on 03/02/2021 by Darci Bermeo MD at [facility] Right: Arm [employer] Inc [id number] 12/18/2021 [id number] / [id number] / [id number] Description:Implant thrown i n the trash after explanted from patient [employer]ele Inc Tfr358 Tornier Aequalis Perform 39mm Reverse Shoulder Standard Sphere - [id number] - [id number] Implanted:Qty: 1 on 01/20/2021 by Darci Bermeo MD at [facility] Explanted:Qty: 1 on 03/02/2021 by Darci Bermeo MD at [facility] Right: Arm [employer] [id number] 11/22/2025 [id number] / [id number] / [id number] Description:Implant thrown i n trash after explanted [...] MD LAB BLOOD ORDERABLES Final Re sult [facility] Department [place] [address] * Differential, auto (10/26/2024 9:33 PM CDT) Neutrophil abs 3.64 1.50 - 6.50 K/cumm Imm gran abs 0.01 0.00 - 0.10 K/cumm [facility] Lymphocyte abs 1.51 0.80 - 3.30 K/cumm [facility] Monocyte abs 0.51 0.20 - 0.80 K/cumm [facility] Eosinophil abs 0.13 0.00 - 0.50 K/cumm [facility] Basophil abs 0.03 0.00 - 0.10 K/cumm [facility] Neutrophil pct 62.5 % [facility] Comment: Interpretive Data Percent cell count reference ranges are not reported, since discordance with absolute values may lead to misinterpretation of CBC data. Current Interpretive Data was last revised on 2017. Imm gran pct 0.2 % [facility] Comment: Interpretive Data Percent cell count reference ranges are not reported, since discordance with absolute values may lead to misinterpretation of CBC data. Current Interpretive Data was last revised on 2017. Lymphocyte pct 25.9 % [facility] Comment: Interpretive Data Percent cell count reference ranges are not reported, since discordance with absolute values may lead to misinterpretation of CBC data. Current Interpretive Data was last revised on 2017. Monocyte pct 8.7 % [facility] Comment: Interpretive Data Percent cell count reference ranges are not reported, since discordance with absolute values may lead to misinterpretation of CBC data. Current Interpretive Data was last revised on 2017. Eosinophil pct 2.2 % [facility] Comment: Interpretive Data Percent cell count reference ranges are not reported, since discordance with absolute values may lead to misinterpretation of CBC data. Current Interpretive Data was last revised on 2017. Basophil pct 0.5 % [facility] Comment: Interpretive Data Percent cell count reference ranges are not reported, since discordance with absolute values may lead to misinterpretation of CBC data. Current Interpretive Data was last revised on 2017. Blood 10/26/2024 9:33 PM CDT 10/26/2024 10:08 PM CDT us Brad Jacob MD LAB BLOOD ORDERABLES Final Re sult [facility] Department [place] [address] * (ABNORMAL) Urinalysis reflex to microscopic and culture Urine (10/26/2024 9:33 PM CDT) Color, ur Yellow Yellow Clarity, ur Clear Clear [facility] Specific gravity, ur 1.008 1.003 - 1.030 [facility] pH, urine 6.5 [facility] Comment: Interpretive Data U rine pH is affected by diet, medications, systemic acid-base disturbances, and renal tubular function. pH may affect urinary stone formation. For example, urine pH below 6.0 may help reduce the tendency for calcium phosphate stones and pH greater than 6.0 may reduce the tendency for uric acid stone formation. Source: [facility] Revalesio Current Interpretive Data was last revised on 2017 Protein, ur ql Trace Negative [facility] Glucose, ur ql Negative Negative [facility] Ketones, ur Trace Negative [facility] Bilirubin, ur Negative Negative [facility] Blood, ur Trace(A) Negative [facility] Urobilinogen, ur <2.0 <2.0 mg/dL [facility] Nitrite, ur Negative Negative [facility] Leukocyte esterase, ur 2+(A) Negative [facility] UA reflex comment Reflex to microscopic UA will be performed. [facility] Urine 10/26/2024 9:33 PM CDT 10/26/2024 9:51 PM CDT us Brad Jacob MD LAB MICROBIOLOGY - GENERAL OR DERABLES Final Result Performing Organization Address City/[facility]/ZIP Co de Phone Number [facility] Department [place] [address] * CBC with auto differential (10/26/2024 9:33 PM CDT) WBC 5.83 3.80 - 9.90 K/cumm Hgb 13.2 13.0 - 17.5 g/dL [facility] Hct 39.1 38.9 - 50.3 % [facility] Plt 246 150 - 400 K/cumm [facility] MPV 9.7 9.1 - 12.3 fL [facility] RBC 4.35 4.30 - 5.80 M/cumm [facility] MCV 89.9 81.3 - 96.4 fL [facility] MCH 30.3 27.1 - 33.3 pg [facility] MCHC 33.8 32.3 - 35.7 g/dL [facility] RDW CV 14.0 11.1 - 14.9 % [facility] RDW SD 45.8 35.7 - 48.1 fL [facility] NRBC abs 0.00 0.00 - 0.01 K/cumm [facility] Blood 10/26/2024 9:33 PM CDT 10/26/2024 10:08 PM CDT Brad Jacob MD LAB BLOOD ORDERABLES Final Re sult [facility] Department [place] [address] * (ABNORMAL) Urinalysis, microscopic only (10/26/2024 9:33 PM CDT) Pathologist [facility] WBC, ur 11-20(A) 0 - 5 /HPF RBC, ur 6-10(A) 0 - 2 /HPF [facility] Epithelial cells, squamous, ur 1-5 0 - 5 /HPF [facility] Bacteria, ur Trace(A) [facility] Culture Reflex Comment Reflex to urine culture will be performed. [facility] Urine 10/26/2024 9:33 PM CDT 10/26/2024 9:51 PM CDT us Brad Jacob MD LAB URINE ORDERABLES Final Re sult Performing Organization Address [facility] Co de Phone Number [facility] [place] [address] * Urine culture Urine (10/26/2024 9:33 PM CDT) Pathologist [facility] Report Final Report: Less than 100,000 colonies/mL (clinically insignificant growth based on current clinical standards) Organism (CLINICALLY INSIGNIFICANT GROWTH [facility] Urine 10/26/2024 9:33 PM CDT 10/26/2024 11:03 PM CDT Narrative [facility] - 10/28/2024 9:53 AM CDT Urine culture reflexed based upon urinalysis results. Testing performed by [facility] Microbiology Laboratory ([phone]) us Brad Jacob MD LAB MICROBIOLOGY - GENERAL OR DERABLES Final Result Performing Organization Address [facility] [place] [address] * (ABNORMAL) Basic metabolic panel (10/26/2024 9:33 PM CDT) Pathologist [facility] Sodium 143 135 - 145 mmol/L Potassium, pl 3.7 3.3 - 4.9 mmol/L [facility] Chloride 106 97 - 110 mmol/L [facility] CO2 25 22 - 32 mmol/L [facility] Anion gap 12 2 - 15 mmol/L [facility] BUN 17 6 - 25 mg/dL [facility] Creatinine 0.69(L) 0.80 - 1.30 mg/dL [facility] Glucose 116 70 - 199 mg/dL [facility] Comment: Interpretive Data Fasting glucose >/= [...] 2022. Calcium 9.8 8.5 - 10.3 mg/dL [facility] Blood 10/26/2024 9:33 PM CDT 10/26/2024 10:08 PM CDT Brad Jacob MD LAB BLOOD ORDERABLES Final Re sult [facility] Department [place] [address] from [place] [address] [place] [address] [place] [place] [address] [facility] Advance Directives For more information, please contact: [phone] * Full Code (Latest Code Status on File) Date Activated Date Inactivated Comments 03/02/2021 5:11 PM 03/03/2021 9:25 PM * Full Code Date Activated Date Inactivated Comments 01/20/2021 1:34 PM 01/22/2021 8:05 PM * Full Code Date Activated Date Inactivated Comments 10/13/2017 3:09 PM 10/13/2017 8:26 PM * Full Code Date Activated Date Inactivated Comments 10/13/2017 3:15 AM 10/13/2017 3:09 PM Care Teams Demo Coordinator Relationship Specialty Start Date End Date Ion Murcia DO PCP - General 10/12/17 [place] [address] [place] [address] Physical Therapist Physical Therapy 04/24/19
--- OUTSIDE RECORDS SUMMARY | 2024-11-20 11:58 | XMS_ITS | Encounter Summary ---
Author Organization [facility] Health Address [address] [place] [address] Care Team Providers Care Catalyst Operator Chief Name Role Phone Valentin Tello MD Primary Care Provider [phone] Bina Carranza DATA OPERATIONS LEADER Unavailable [phone] Encounter Details Date Type Department Care Team (Late st Contact Info) Description 07/04/2016 [facility] Outpatient Visit [facility] Orthopedics - Radiology [address] [place], [place] [id number] Jos Wilkins MD [address] [facility] [address] [place] [address] Social History Tobacco Use Types Packs/Day Years Used Date Smoking Tobacco: Never Alcohol Use Standard Drinks/Week Comments Yes 0 (1 standard drink = 0.6 oz pur e alcohol) once a week Sex and Gender Information Value Date Recorded Sex Assigned at Not on file Legal Sex Male 6:17 AM PRODUCT DEVELOPMENT TECHNICIAN Gender Identity Not on file Sexual Orientation Not on file documented as of this encounter Functional Status * Is person deaf or have serious hearing difficulty? Answer Date of Assessment Author No 04/16/2014 10:06 AM PRODUCT DEVELOPMENT TECHNICIAN Danilo Quiles RN * Is person blind [...] on filedocumented in this encounter Care Teams Catalyst Operator Chief Relationship Specialty Start Date End Date Valentin Tello MD PCP - General Endocrinology 03/04/14 Bina Carranza MSW [place] Oven Builder 03/08/14 documented as of this encounter
--- OUTSIDE RECORDS SUMMARY | 2024-11-20 11:58 | XMS_ITS | Encounter Summary ---
Author Organization [facility] Health Address [address] [place] [address] Care Team Providers Care Chief Knowledge Officer Name Role Phone Valentin Tello MD Primary Care Provider [phone] Bina Carranza CLINIC LEAD Unavailable [phone] Encounter Details Date Type Department Care Team (Late st Contact Info) Description 07/10/2016 [facility] Outpatient Visit [facility] Orthopedics - Radiology [address] [place] [address] Jos Wilkins MD [address] [facility] [address] [place] [address] Social History Tobacco Use Types Packs/Day Years Used Date Smoking Tobacco: Never Alcohol Use Standard Drinks/Week Comments Yes 0 (1 standard drink = 0.6 oz pur e alcohol) once a week Sex and Gender Information Value Date Recorded Sex Assigned at Not on file Legal Sex Male 6:17 AM RADIOLOGICAL TECHNOLOGIST Gender Identity Not on file Sexual Orientation [...] on filedocumented in this encounter Care Teams Chief Knowledge Officer Relationship Specialty Start Date End Date Valentin Tello MD PCP - General Endocrinology 03/04/14 Bina Carranza MSW [place] Book Solicitor 03/08/14 documented as of this encounter
--- OUTSIDE RECORDS SUMMARY | 2024-11-20 11:58 | XMS_ITS | Encounter Summary ---
Author Organization [facility] Address [address] [place] [address] Care Team Providers Care Brim Edge Trimmer Name Role Phone Valentin Tello MD Primary Care Provider Bina Carranza PRICING STRATEGIST Unavailable [phone] Encounter Details Date Type Department Care Team (Late st Contact Info) Description 08/02/2022 Lab Requisition [facility] [address] [place] [address] Figueroa Garcia MD [address] [place] [address] Social History Tobacco Use Types Packs/Day Years Used Date Smoking Tobacco: Never Smokeless Tobacco: Never Alcohol Use Standard Drinks/Week Comments Yes 0 (1 standard drink = 0.6 oz pur e alcohol) once a week Sex and Gender Information Value Date Recorded Sex Assigned at Not on file Legal Sex Male 6:17 AM CONTACT LENS LATHE OPERATOR Gender Identity Not on file Sexual [...] AM CDT) Case Report Dermatopathology Report Case: [id number] Authorizing Provider: Figueroa Garcia MD Collected: 07/31/2022 12:00 AM Ordering Location: [facility] Received: 08/02/2022 07:04 AM Pathologist: [...] characteristic determined by the Dermatopathology Laboratory at [facility], directed by Dr. Reva Jimenez. These tests need not be, and therefore are not, approved by the [place] Food and Drug Administration. The tests are used for clinical purposes. Billing Codes Specimen Charges Stain Charges 29309 91021 [id number] 15085 1 1 1 1 [id number] [id number] 1 1 3 5:43 PM CDT DERMATOPATHOLOGY [...] PATHOLOGY/CYTOLOGY ORD ERABLES Final Result DERMATOPATHOLOGY LABORATORY [facility] Department of Dermatology [facility] [address] [place] [address], [address] [phone] documented in this encounter Visit Diagnoses Not on filedocumented in this encounter Care Teams Brim Edge Trimmer Relationship Specialty Start Date End Date Valentin Tello MD PCP - General Endocrinology 03/04/14 Bina Carranza MSW [facility] Cut [employer] Saw Grader 03/08/14 documented as of this encounter
[2024-11-20 12:17] LABS: Neutrophils Percent Manual 79 % (46-73); Total Cells Counted 100
[2024-11-20 12:18] LABS: Band Neutrophils Percent 4 % (0-6); Basophils Absolute Manual 0.00 K/mm3 (0.0-0.1); Basophils Percent Manual 0 % (0-1); Eosinophils Absolute Manual 0.00 K/mm3 (0.02-0.50); Eosinophils Percent Manual 0 % (0-4); Lymphocytes Absolute Manual 0.70 K/mm3 (1.1-4.5); Lymphocytes Percent Manual 6 % (18-44); Metamyelocytes Percent 0 %; Monocytes Absolute Manual 1.29 K/mm3 (0.1-0.90); Monocytes Percent Manual 11 % (3-9); Myelocytes Percent 0 %; Neutrophils Absolute Manual 9.79 K/mm3 (1.3-6.7); Promyelocytes Percent 0 %
[2024-11-20 12:20] LABS: Schistocytes None Seen
[2024-11-20 12:50] LABS: Alanine Aminotransferase 23 U/L (6-50); Albumin Level 3.7 g/dL (3.5-5.1); Alkaline Phosphatase 70 U/L (38-126); Anion Gap 9 mmol/L (4-12); Aspartate Amino Transferase 33 U/L (17-59); Bilirubin,Total 0.8 mg/dL (0.2-1.3); Blood Urea Nitrogen 18 mg/dL (9-20); Calcium 8.3 mg/dL (8.4-10.2); Carbon Dioxide 20 mmol/L (22-30); Chloride 110 mmol/L (98-107); Estimated CRCL calculation 102 ml/min; Estimated Glomerular Filt Rate > 60; Glucose 119 mg/dL (65-110); INR 1.3; Potassium 3.3 mmol/L (3.4-5.0); Prothrombin Time 15.8 Seconds (11.1-14.7); Sodium 139 mmol/L (137-145); Total Protein 6.8 g/dL (6.3-8.2)
[2024-11-20 12:52] LABS: Partial Thromboplastin Time 29.2 Seconds (22.3-36.8)
[2024-11-20 13:05] LABS: CRP 17.1 mg/dL (<1.0)
[2024-11-20 13:29] LABS: Magnesium 2.1 mg/dL (1.6-2.3)
[2024-11-20] MEDS: POTASSIUM CHLORIDE 20 MEQ ER TABLET 40 MEQ PO (13:38)
[2024-11-20] MEDS: ACETAMINOPHEN 500 MG TABLET 1000 MG PO (15:42)
[2024-11-20] MEDS: ceFAZolin 1 GM in SODIUM CHLORIDE 0.9% IV 50 ML 100 ML IVPB ×2 (15:43→22:32)
[2024-11-20] MEDS: LACTATED RINGERS 1,000 ML 999 ML IV CONT (16:41)
--- NOTE | 2024-11-20 17:53 | P.HP_ITS ---
H&P: HPI History of Present Illness Date/Time: 11/20/24 17:53 Chief Complaint: Cellulitis Narrative: 54-year-old male past medical history of incomplete quadriplegia, melanoma, and basal cell carcinoma, neurogenic bladder bowel, and iron deficiency presents the hospital with right elbow cellulitis. He was seen in the emergency room yesterday and had a I&D was discharged home on antibiotics. He states since t hen the redness and the swelling has gotten worse he presented back to the hospital. Patient complains of general malaise but denies fever or chills. In the ED lab work shows leukocytosis 11.8, hemoglobin of 12.3, potassium of 3.3, chloride of 110, carbon dioxide 28, creatinine of 0.68, calcium of 8.3, CRP of 17.1. CT available shows Soft tissue swelling and prominent subcutaneous edema posterior to the right elbow and proximal to mid right forearm consistent with cellulitis without evident abscess. There are few foci of gas in subcutaneous fat at the posterior medial right elbow likely related to reported recent incision and drainage. No evident more distal extension of gas or gas within the deeper spaces of the arm to elevate suspicion for necrotizing fasciitis which is ultimately a clinical diagnosis. Blood cultures are pending and patient has been started on Ancef with potassium replaced in the emergency room. Review of Systems Review of Systems: 12 systems were reviewed and are negativ e except for as per HPI. 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 He lives alone. He is dependent on wheelchair for mobilization. He is a lifelong nonsmoker. He used to drink 2 drinks a night on average but has not done so over the last year. He denies illicit substance use. He has 2 daughters. Smoking status: Never smoker Alcohol intake: former Drinks per week: 1 Substance use: never Do You Feel Safe in your Home?: Yes Lack of Transportation: No Lack of Food: Never True Current Housing: I Have Housing Concerned About Future Housing: No Difficulty Paying Gas/Electric Bills: No Difficulty Paying for Meds: No Currently Unemployed: No Education: Master's Degree or Higher Difficulty w/ Childcare or Family Care: No Living arrangements: with family Spiritual care concerns: No Meds Home Medications and Allergies Home Medications ?Medication ?Instructions ?Recorded ?Confirmed ?Type hydrocodone 5 mg-acetaminophen 325 1 - 2 tablet PO Q6H PRN pain #20 11/07/23 11/20/24 Rx mg tablet tabs cephalexin 500 mg capsule 500 mg PO Q6H 7 days #28 cap s 11/19/24 11/20/24 Rx Allergies Allergy/AdvReac Type Severity Reaction Status Date / Time levofloxacin AdvReac Gastrointestinal Verified 11/07/23 12:25 Upset Vital Signs Vital Signs - 24 hr 11/20/24 10:51 11/20/24 11:00 11/20/24 11:02 Temperature 99.0 F 99.2 F Pulse Rate 86 86 86 Respiratory Rate 16 17 18 Blood Pressure 85/53 L 106/72 106/72 Pulse Oximetry 100 99 Oxygen Delivery Room Air Room Air 11/20/24 11:37 11/20/24 11:45 11/20/24 12:00 Temperature Pulse Rate 82 87 97 Respiratory Rate 18 15 14 Blood Pressure 113/79 95/67 L 103/74 Pulse Oximetry 97 97 Oxygen Delivery 11/20/24 12:15 11/20/24 12:30 11/20/24 12:45 Temperature Pulse Rate 72 82 60 Respiratory Rate 15 18 19 Blood Pressure 102/56 L 128/45 L 127/80 Pulse Oximetry 97 Oxygen Delivery 11/20/24 13:00 11/20/24 15:40 11/20/24 16:18 Temperature 98.2 F Pulse Rate 70 77 Respiratory Rate 19 18 Blood Pressure 143/80 H 83/56 L Pulse Oximetry Oxygen Delivery 11/20/24 16:19 11/20/24 16:20 11/20/24 16:26 Temperature Pulse Rate 82 75 77 Respiratory Rate 18 20 19 Blood Pressure 75/44 L 85/57 L Pulse Oximetry 96 97 98 Oxygen Delivery 11/20/24 16:36 11/20/24 16:37 11/20/24 17:01 Temperature Pulse Rate 67 Respiratory Rate 16 Blood Pressure 72/48 L 74/36 L 92/45 L Pulse Oximetry 98 Oxygen Delivery 11/20/24 17:01 11/20/24 17:15 11/20/24 17:30 Temperature Pulse Rate 69 74 79 Respiratory Rate 17 17 18 Blood Pressure 92/45 L 120/64 99/49 L Pulse Oximetry 96 99 99 Oxygen Delivery Exam Narrative: General: well appearing, appears stated age. HEENT: normocephalic, atraumatic. Mucous membranes moist. EOMI, PERRLA, bilateral sclera anicteric, no conjunctival injection. Neck supple without JVD, lymphadenopathy, or bruit. Respiratory: clear to ascultation bilaterally. No rales/rhonic/wheezes. Cardiovascular: Regular rate and rhythm, normal S1-S2 upon ascultation. No m urmurs, rubs, or clicks. PMI is nondisplaced, capillary refill less than 3 second. Abdomen: Soft, round, no pulsatile masses, nondistended and nontender. No rebound, no guarding. No CVA tenderness, no hepatosplenomegaly. Bowel sounds present to all four quadrants. No high pitch or tinkling sounds, resonant to percussion. Extremities: No cyanosis, clubbing, or edema present. Pulses are palpable 2/2. Right elbow with edema minimal erythema. Lower extremities flaccid Neuro: Alert and orientated x 4. PERRLA. Cranial nerves 2-12 intact without focal deficit. Skin: Warm, dry, and intact, without rash, erythema, or lesion. Psych: pleasant, cooperative, normal speech, normal affect, no hallucinations, no dysarthia H&P: Results Labs Labs: Short CBC 11/20/24 Range/Units 11:39 WBC 11.8 H (4.5-10.0) K/mm3 Hgb 12.3 L (14.0-18.0) g/dL Hct 37.4 L (42.0-52.0) % Plt Count 178 (150-375) k/mm3 BMP 11/20/24 12:28 Sodium 139 Potassium 3.3 L Chloride 110 H Carbon Dioxide 20 L BUN 18 D Creatinine 0.68 L Glucose 119 H Calcium 8.3 L Liver Function 11/20/24 Range/Units 12:28 Total Bilirubin 0.8 (0.2-1.3) mg/dL AST 33 (17-59) U/L ALT 23 (6-50) U/L Alkaline Phosphatase 70 (38-126) U/L Albumin 3.7 (3.5-5.1) g/dL Assessment and Plan Assessment and plan (1) Left arm cellulitis: Code(s): L03.114 - Cellulitis of left upper limb Status: Acute Assessment and Plan: Patient had I&D performed yesterday in the emergency room. Wound consult Wound culture pending Blood culture pending Ancef IVF (2) Neurogenic bladder: Code(s): N31.9 - Neuromuscular dysfunction of bladder, unspecified Status: Acute Assessment and Plan: Straight cath p.r.n. (3) Hypokalemia: Code(s): E87.6 - Hypokalemia Status: Acute Assessment and Plan: Replete as needed BMP in the morning (4) Hypocalcemia: Code(s): E83.51 - Hypocalcemia Status: Acute Assessment and Plan: Replace 1 g BMP in the morning Plan Patient takes no home meds Quality VTE Prophylaxis VTE prophylaxis: mechanical ordered and pharmacologic ordered Hospitalist MIPS Advance Care Plan I have confirmed that the patient's Advanced Care Plan is present, code status is documented, or surrogate decision maker is listed in patient medical record.: Yes Medication Reconciliation I have utilized all available resources to obtain, update and review the patients current medications (includes all prescriptions, OTC, herbals, cannabis, and nutritional supplements).: Yes
[2024-11-20] MEDS: SODIUM CHLORIDE 0.9% IV 1,000 ML 150 ML IV CONT ×2 (18:33→23:57)
--- NOTE | 2024-11-20 21:25 | ADMGEN ---
This patient, oIn Rodney, was admitted to 3 [facility] Surg Room 301-01. Patient/family oriented to hospital policies and general routines including ID bracelet, bed and alarms, visiting hours, pain management, procedures, bathroom and other care routines, personal items, smoking policy, room service/diet, and visiting hours. Information on how to activate the Rapid Response Team has been discussed. Patient/Family are encouraged to report perceived risks to care and to ask questions if they do not understand what they are told or what they should do. Patient arrived at 1850, admission not completed by day RN. Patient was greeted, comfortable and denied any pain or needs at that time. No signs of distress. call light in reach.
[2024-11-20] MEDS: CALCIUM GLUC 1,000 MG/NS 50 ML 1,000 MG/50 ML BAG 100 MG IVPB ×2 (22:00→22:08)
[2024-11-21] MEDS: ceFAZolin 1 GM in SODIUM CHLORIDE 0.9% IV 50 ML 100 ML IVPB ×3 (05:58→21:00)
[2024-11-21 06:00] VITALS: BP 100/68; PULSE 84; RESP 18; TEMP 37; O2SAT 97
--- NOTE | 2024-11-21 06:04 | WNDPHOTO ---
PHOTO ONLY - See Nursing Notes and/ or assessments for documentation.
[2024-11-21 06:23] LABS: Hematocrit 36.1 % (42.0-52.0); Hemoglobin 11.2 g/dL (14.0-18.0); Immature Granulocyte Percent A 0.5 % (0-0.5); Lymphocytes Absolute Auto 0.68 K/mm3 (0.9-3.2); Mean Corpuscular HGB Conc 31.0 g/dl (32-36); Mean Corpuscular Hemoglobin 29.8 pg (26-34); Mean Corpuscular Volume 96.0 fl (80-100); Nucleated Red Blood Cells Absolute Auto 0.000 K/mm3 (0.0-0.012); Nucleated Red Blood Cells Perc 0.0 % (0.0-0.2); Platelet Count Result 190 k/mm3 (150-375); Red Blood Count 3.76 M/mm3 (4.6-6.20); White Blood Count 9.1 K/mm3 (4.5-10.0)
[2024-11-21 06:49] LABS: Anion Gap 10 mmol/L (4-12); Blood Urea Nitrogen 13 mg/dL (9-20); Calcium 8.3 mg/dL (8.4-10.2); Carbon Dioxide 19 mmol/L (22-30); Chloride 111 mmol/L (98-107); Estimated CRCL calculation 134 ml/min; Estimated Glomerular Filt Rate > 60; Glucose 102 mg/dL (65-110); Potassium 4.1 mmol/L (3.4-5.0); Sodium 140 mmol/L (137-145)
--- NOTE | 2024-11-21 12:44 | P.PNIM_ITS ---
Progress Note: A&P Assessment and Plan (1) Left arm cellulitis: Code(s): L03.114 - Cellulitis of left upper limb Status: Acute Assessment and Plan: Patient had I&D performed 11/19/2024 in the emergency room. Wound consult Wound culture pending Blood culture pending [facility] CT upper extremity right soft tissue swelling and prominent subcutaneous edema posterior to right elbow and proximal to mid forearm consistent with cellulitis without evident abscess. Few foci of gas in subcutaneous fat at the posterior medial right elbow likely related to reported recent I&D. No evident more distal extension of catheter gas within the deeper space of the arm to elevate suspicion for necrotizing fascitis. (2) Neurogenic bladder: Code(s): N31.9 - Neuromuscular dysfunction of bladder, unspecified Status: Acute Assessment and Plan: Straight cath p.r.n. (3) Hypokalemia: Code(s): E87.6 - Hypokalemia Status: Acute Assessment and Plan: Replete as needed (4) Hypocalcemia: Code(s): E83.51 - Hypocalcemia Status: Acute Assessment and Plan: Replace 1 g And monitor Plan DVT prophylaxis Lovenox Code status full code Subjective Date/time seen: 11/21/24 12:44 Interval history: No overnight events. Redness of the arm still persist. Remains afebrile. No drainage. Review of Systems Review of Systems: All systems reviewed & are unremarkable except as noted in HPI and below Exam Narrative: General: well appearing, appears stated age. HEENT: normocephalic, atraumatic. Mucous membranes moist. EOMI, PERRLA Respiratory: clear to ascultation bilaterally. No rales/rhonic/wheezes. Cardiovascular: Regular rate and rhythm, normal S1-S2 upon ascultation. Abdomen: Soft, round, no pulsatile masses, nondistended and nontender. Extremities: No cyanosis, clubbing, or edema present. Pulses are palpable 2/2. Right elbow with edema minimal erythema. Lower extremities flaccid Neuro: Alert and orientated x 4. PERRLA. Cranial nerves 2-12 intact without focal deficit. Skin: Warm, dry, and intact, without rash, erythema, or lesion. Psych: pleasant, cooperative, normal speech, normal affect, no hallucinations, no dysarthia Objective Data Vital Signs Vital Signs: Vital Signs - 24 hr 11/20/24 12:45 11/20/24 13:00 11/20/24 15:40 Temperature 98.2 F Pulse Rate 60 70 Respiratory Rate 19 19 Blood Pressure 127/80 143/80 H Pulse Oximetry Oxygen Delivery 11/20/24 16:18 11/20/24 16:19 11/20/24 16:20 Temperature Pulse Rate 77 82 75 Respiratory Rate 18 18 20 Blood Pressure 83/56 L 75/44 L 85/57 L Pulse Oximetry 96 97 Oxygen Delivery 11/20/24 16:26 11/20/24 16:36 11/20/24 16:37 Temperature Pulse Rate 77 Respiratory Rate 19 Blood Pressure 72/48 L 74/36 L Pulse Oximetry 98 Oxygen Delivery 11/20/24 17:01 11/20/24 17:01 11/20/24 17:15 Temperature Pulse Rate 67 69 74 Respiratory Rate 16 17 17 Blood Pressure 92/45 L 92/45 L 120/64 Pulse Oximetry 98 96 99 Oxygen Delivery 11/20/24 17:30 11/20/24 19:05 11/20/24 20:00 Temperature Pulse Rate 79 80 Respiratory Rate 18 20 Blood Pressure 99/49 L 114/74 Pulse Oximetry 99 100 Oxygen Delivery Room Air 11/20/24 21:25 11/21/24 06:00 Temperature 97.6 F 98.6 F Pulse Rate 72 84 Respiratory Rate 18 18 Blood Pressure 99/59 L 100/68 Pulse Oximetry 99 97 Oxygen Delivery Intake/Output Intake/Output: Intake & Output 11/18/24 11/19/24 11/20/24 11/21/24 23:59 23:59 23:59 23:59 Intake Total 2910 Output Total 600 Balance 2910 -600 Meds/Results Medications: Active Medications Generic Name Dose Route Start Last Admin Trade Name Freq PRN Reason Stop Dose Admin Acetaminophen 650 mg 11/20/24 17:57 Acetaminophen 325 Mg Tablet PO Q4H PRN Mild Pain (1-3) or Fever Hydrocodone Bitart/Acetaminophen 1 tab 11/20/24 17:57 Hydrocodone/Acetaminophen (*Crx) 5-325 Mg Tablet PO Q4H PRN Moderate Pain (4-6) Docusate Sodium 100 mg 11/21/24 09:00 11/21/24 09:36 Docusate Sodium 100 Mg Capsule PO Not Given BID CHRIS Cefazolin Sodium 1 gm/ Sodium 50 mls @ 100 mls/hr 11/20/24 22:00 11/21/24 05:58 Chloride IVPB 100 mls/hr Q8HR CHRIS Administration Ibuprofen 200 mg 11/20/24 22:34 Ibuprofen 200 Mg Tablet PO Q6H PRN Pain Rated 1-3 Radiology Results: ITS Impressions Upper Extremity CT 11/20/24 13:49 IMPRESSION: 1. Soft tissue swelling and prominent subcutaneous edema posterior to the right elbow and proximal to mid right forearm consistent with cellulitis without evident abscess. There are few foci of gas in subcutaneous fat at the posterior medial right elbow likely related to reported recent incision and drainage. No evident more distal extension of gas or gas within the deeper spaces of the arm to elevate suspicion for necrotizing fasciitis which is ultimately a clinical diagnosis. Labs Labs: Laboratory Results - last 24 hr 1011/20/24 11/21/24 11:39 12:28 05:25 WBC 9.1 RBC 3.76 L Hgb 11.2 L Hct 36.1 L MCV 96.0 D MCH 29.8 MCHC 31.0 L RDW 14.2 Plt Count 190 MPV 9.8 Immature Gran % (Auto) 0.5 Neut % (Auto) 81.8 H Lymph % (Auto) 7.5 L [place] % (Auto) 8.1 Eos % (Auto) 1.8 Baso % (Auto) 0.3 Lymph # (Auto) 0.68 L [place] # (Auto) 0.7 H Eos # (Auto) 0.2 Baso # (Auto) 0.0 Abs Immat Gran (auto) 0.05 H Absolute Neuts (auto) 7.4 H Absolute Nucleated RBC 0.000 Nucleated RBC % 0.0 ESR 30 H PT 15.8 H INR 1.3 APTT 29.2 Sodium 139 140 Potassium 3.3 L 4.1 Chloride 110 H 111 H Carbon Dioxide 20 L 19 L Anion Gap 9 10 BUN 18 D 13 D Creatinine 0.68 L 0.51 L Estim Creat Clear Calc 102 134 Estimated GFR > 60 > 60 Glucose 119 H 102 Calcium 8.3 L 8.3 L Magnesium 2.1 Total Bilirubin 0.8 AST 33 ALT 23 Alkaline Phosphatase 70 C-Reactive Protein 17.1 H Total Protein 6.8 Albumin 3.7
[2024-11-21 16:56] VITALS: BP 108/88; PULSE 84; RESP 16; TEMP 36.8; O2SAT 100
[2024-11-21] MEDS: ACETAMINOPHEN 325 MG TABLET 650 MG PO (21:29)
[2024-11-21 22:35] VITALS: BP 97/54; PULSE 90; RESP 20; TEMP 37.2; O2SAT 99
[2024-11-22] MEDS: ceFAZolin 1 GM in SODIUM CHLORIDE 0.9% IV 50 ML 100 ML IVPB ×3 (05:17→21:45)
[2024-11-22 06:00] VITALS: BP 92/56; PULSE 86; RESP 18; TEMP 37; O2SAT 98
[2024-11-22 06:01] LABS: Hematocrit 35.1 % (42.0-52.0); Hemoglobin 11.1 g/dL (14.0-18.0); Immature Granulocyte Percent A 0.4 % (0-0.5); Lymphocytes Absolute Auto 1.32 K/mm3 (0.9-3.2); Mean Corpuscular HGB Conc 31.6 g/dl (32-36); Mean Corpuscular Hemoglobin 29.4 pg (26-34); Mean Corpuscular Volume 93.1 fl (80-100); Nucleated Red Blood Cells Absolute Auto 0.000 K/mm3 (0.0-0.012); Nucleated Red Blood Cells Perc 0.0 % (0.0-0.2); Platelet Count Result 213 k/mm3 (150-375); Red Blood Count 3.77 M/mm3 (4.6-6.20); White Blood Count 6.7 K/mm3 (4.5-10.0)
[2024-11-22 06:25] LABS: Alanine Aminotransferase 17 U/L (6-50); Albumin Level 3.2 g/dL (3.5-5.1); Alkaline Phosphatase 68 U/L (38-126); Anion Gap 7 mmol/L (4-12); Aspartate Amino Transferase 34 U/L (17-59); Bilirubin,Total 0.5 mg/dL (0.2-1.3); Blood Urea Nitrogen 13 mg/dL (9-20); Calcium 8.4 mg/dL (8.4-10.2); Carbon Dioxide 22 mmol/L (22-30); Chloride 106 mmol/L (98-107); Estimated CRCL calculation 119 ml/min; Estimated Glomerular Filt Rate > 60; Glucose 105 mg/dL (65-110); Magnesium 2.1 mg/dL (1.6-2.3); Potassium 3.5 mmol/L (3.4-5.0); Sodium 135 mmol/L (137-145); Total Protein 6.0 g/dL (6.3-8.2)
--- NOTE | 2024-11-22 12:38 | P.PNIM_ITS ---
Progress Note: A&P Assessment and Plan (1) Left arm cellulitis: Code(s): L03.114 - Cellulitis of left upper limb Status: Acute Assessment and Plan: Patient had I&D performed 11/19/2024 in the emergency room. Wound consult Wound culture pending Blood culture pending Ancef CT upper extremity right soft tissue swelling and prominent subcutaneous edema posterior to right elbow and proximal to mid forearm consistent with cellulitis without evident abscess. Few foci of gas in subcutaneous fat at the posterior medial right elbow likely related to reported recent I&D. No evident more distal extension of catheter gas within the deeper space of the arm to elevate suspicion for necrotizing fascitis. continue IV Ancef await culture. (2) Neurogenic bladder: Code(s): N31.9 - Neuromuscular dysfunction of bladder, unspecified Status: Acute Assessment and Plan: Straight cath p.r.n. (3) Hypokalemia: Code(s): E87.6 - Hypokalemia Status: Acute Assessment and Plan: Replete as needed (4) Hypocalcemia: Code(s): E83.51 - Hypocalcemia Status: Acute Assessment and Plan: Replace 1 g And monitor Plan DVT prophylaxis Lovenox Code status full code Subjective Date/time seen: 11/22/24 12:38 Interval history: No overnight events. Redness of the arm still persist But better. Remains afebrile. No drainage. Review of Systems Review of Systems: All systems reviewed & are unremarkable except as noted in HPI and below Exam Narrative: General: well appearing, appears stated age. HEENT: normocephalic, atraumatic. Mucous membranes moist. EOMI, PERRLA Respiratory: clear to ascultation bilaterally. No rales/rhonic/wheezes. Cardiovascular: Regular rate and rhythm, normal S1-S2 upon ascultation. Abdomen: Soft, round, no pulsatile masses, nondistended and nontender. Extremities: No cyanosis, clubbing, or edema present. Pulses are palpable 2/2. Right elbow with edema minimal erythema. Lower extremities flaccid Neuro: Alert and orientated x 4. PERRLA. Cranial nerves 2-12 intact without focal deficit. Skin: Warm, dry, and intact, without rash, erythema, or lesion. Psych: pleasant, cooperative, normal speech, normal affect, no hallucinations, no dysarthia Objective Data Vital Signs Vital Signs: Vital Signs - 24 hr 11/21/24 16:56 11/21/24 22:35 11/22/24 06:00 Temperature 98.3 F 98.9 F 98.6 F Pulse Rate 84 90 86 Respiratory Rate 16 20 18 Blood Pressure 108/88 97/54 L 92/56 L Pulse Oximetry 100 99 98 Oxygen Delivery 11/22/24 08:30 Temperature Pulse Rate Respiratory Rate Blood Pressure Pulse Oximetry Oxygen Delivery Room Air Intake/Output Intake/Output: Intake & Output 11/19/24 11/20/24 11/21/24 11/22/24 23:59 23:59 23:59 23:59 Intake Total 2910 880 1100 Output Total 600 1200 Balance 2910 280 -100 Meds/Results Medications: Active Medications Generic Name Dose Route Start Last Admin Trade Name Freq PRN Reason Stop Dose Admin Acetaminophen 650 mg 11/20/24 17:57 11/21/24 21:29 Acetaminophen 325 Mg Tablet PO 650 mg Q4H PRN Administration Mild Pain (1-3) or Fever Hydrocodone Bitart/Acetaminophen 1 tab 11/20/24 17:57 Hydrocodone/Acetaminophen (*Crx) 5-325 Mg Tablet PO Q4H PRN Moderate Pain (4-6) Docusate Sodium 100 mg 11/21/24 09:00 11/22/24 08:29 Docusate Sodium 100 Mg Capsule PO Not Given BID CHRIS Enoxaparin Sodium 40 mg 11/21/24 13:00 11/22/24 08:29 Enoxaparin 40 Mg/0.4 Ml Syringe SUB-Q Not Given DAILY CHRIS Cefazolin Sodium 1 gm/ Sodium 50 mls @ 100 mls/hr 11/20/24 22:00 11/22/24 05:17 Chloride IVPB 100 mls/hr Q8HR CHRIS Administration Ibuprofen 200 mg 11/20/24 22:34 Ibuprofen 200 Mg Tablet PO Q6H PRN Pain Rated 1-3 Radiology Results: ITS Impressions Upper Extremity CT 11/20/24 13:49 IMPRESSION: 1. Soft tissue swelling and prominent subcutaneous edema posterior to the right elbow and proximal to mid right forearm consistent with cellulitis without evident abscess. There are few foci of gas in subcutaneous fat at the posterior medial right elbow likely related to reported recent incision and drainage. No evident more distal extension of gas or gas within the deeper spaces of the arm to elevate suspicion for necrotizing fasciitis which is ultimately a clinical diagnosis. Labs Labs: Laboratory Results - last 24 hr 11/22/24 05:30 WBC 6.7 RBC 3.77 L Hgb 11.1 L Hct 35.1 L MCV 93.1 MCH 29.4 MCHC 31.6 L RDW 13.9 Plt Count 213 MPV 9.6 Immature Gran % (Auto) 0.4 Neut % (Auto) 65.6 Lymph % (Auto) 19.6 [place] % (Auto) 8.9 H Eos % (Auto) 5.2 H Baso % (Auto) 0.3 Lymph # (Auto) 1.32 [place] # (Auto) 0.6 Eos # (Auto) 0.4 H Baso # (Auto) 0.0 Abs Immat Gran (auto) 0.03 Absolute Neuts (auto) 4.4 Absolute Nucleated RBC 0.000 Nucleated RBC % 0.0 Sodium 135 L Potassium 3.5 Chloride 106 Carbon Dioxide 22 Anion Gap 7 BUN 13 Creatinine 0.58 L Estim Creat Clear Calc 119 Estimated GFR > 60 Glucose 105 Calcium 8.4 Magnesium 2.1 Total Bilirubin 0.5 AST 34 ALT 17 Alkaline Phosphatase 68 Total Protein 6.0 L Albumin 3.2 L
[2024-11-22 15:45] VITALS: BP 98/53; PULSE 83; RESP 17; TEMP 36.2; O2SAT 99
[2024-11-22 23:06] VITALS: BP 132/81; PULSE 64; RESP 18; TEMP 36.1; O2SAT 98
[2024-11-23 06:00] VITALS: BP 116/63; PULSE 69; RESP 18; TEMP 37.3; O2SAT 97
[2024-11-23] MEDS: ceFAZolin 1 GM in SODIUM CHLORIDE 0.9% IV 50 ML 100 ML IVPB (06:01)
[2024-11-23 07:13] LABS: Hematocrit 36.0 % (42.0-52.0); Hemoglobin 11.7 g/dL (14.0-18.0); Immature Granulocyte Percent A 0.2 % (0-0.5); Lymphocytes Absolute Auto 1.26 K/mm3 (0.9-3.2); Mean Corpuscular HGB Conc 32.5 g/dl (32-36); Mean Corpuscular Hemoglobin 29.9 pg (26-34); Mean Corpuscular Volume 92.1 fl (80-100); Nucleated Red Blood Cells Absolute Auto 0.000 K/mm3 (0.0-0.012); Nucleated Red Blood Cells Perc 0.0 % (0.0-0.2); Platelet Count Result 245 k/mm3 (150-375); Red Blood Count 3.91 M/mm3 (4.6-6.20); White Blood Count 4.9 K/mm3 (4.5-10.0)
[2024-11-23 07:35] LABS: Alanine Aminotransferase 17 U/L (6-50); Albumin Level 3.3 g/dL (3.5-5.1); Alkaline Phosphatase 65 U/L (38-126); Anion Gap 9 mmol/L (4-12); Aspartate Amino Transferase 28 U/L (17-59); Bilirubin,Total 0.4 mg/dL (0.2-1.3); Blood Urea Nitrogen 15 mg/dL (9-20); Calcium 8.7 mg/dL (8.4-10.2); Carbon Dioxide 25 mmol/L (22-30); Chloride 105 mmol/L (98-107); Estimated CRCL calculation 114 ml/min; Estimated Glomerular Filt Rate > 60; Glucose 96 mg/dL (65-110); Magnesium 2.2 mg/dL (1.6-2.3); Potassium 3.4 mmol/L (3.4-5.0); Sodium 139 mmol/L (137-145); Total Protein 6.4 g/dL (6.3-8.2)
--- NOTE | 2024-11-23 09:36 | PM.CNOR ---
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 The bursa tissue is somewhat prominent with purulent drainage. Improved with antibiotics. He states that he has recurrences in the summer typically. He has tried [id number] braces without benefit. Difficult situation. Surgery is unlikely to improve the situation given that the pressure from the wheelchair is causing the cellulitis. A custom brace or accommodation with a wheelchair may solve the problem. He has an appointment in the next few days with Physical Medicine and Rehabilitation. We agree that he will discuss further options with them. He is satisfied with the discussion. <Victor Manuel Saavedra MD - Last Filed: 11/23/24 16:03> History of Present Illness HPI Consult date: 11/23/24 <DELON Church - Last Filed: 11/23/24 09:37> 11/23/24 <Victor Manuel Saavedra MD - Last Filed: 11/23/24 16:03> Chief complaint: Cellulitis <DELON Church - Last Filed: 11/23/24 09:37> Narrative: Patient complains of recurrent cellulitis and bursitis in the right elbow. Wheelchair dependent for several decades. States that in the summer he leans more on the tire of his wheelchair causing the bursitis. Area was lanced with significant pus. He is noting improvement with IV antibiotics. 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 He lives alone. He is dependent on wheelchair for mobilization. He is a lifelong nonsmoker. He used to drink 2 drinks a night on average but has not done so over the last year. He denies illicit substance use. He has 2 daughters. Smoking status: Never smoker Alcohol intake: former Drinks per week: 1 Substance use: never Do You Feel Safe in your Home?: Yes Lack of Transportation: No Lack of Food: Never True Current Housing: I Have Housing Concerned About Future Housing: No Difficulty Paying Gas/Electric Bills: No Difficulty Paying for Meds: No Currently Unemployed: No Education: Master's Degree or Higher Difficulty w/ Childcare or Family Care: No Living arrangements: with family Spiritual care concerns: No <DELON Church - Last Filed: 11/23/24 09:37> Meds Home Medications and Allergies Home medications: Home Medications ?Medication ?Instructions ?Recorded ?Confirmed ?Type hydrocodone 5 mg-acetaminophen 325 1 - 2 tablet PO Q6H PRN pain #20 11/07/23 11/20/24 Rx mg tablet tabs cephalexin 500 mg capsule 500 mg PO Q6H 10 days #40 caps 11/23/24 11/20/24 Rx <DELON Church - Last Filed: 11/23/24 09:37> Allergies/Adverse reactions: Allergies Allergy/AdvReac Type Severity Reaction Status Date / Time levofloxacin AdvReac Gastrointestinal Verified 11/07/23 12:25 Upset <DELON Church - Last Filed: 11/23/24 09:37> Vital Signs Vital Signs - 24 hr 11/22/24 15:45 11/22/24 20:00 11/22/24 23:06 Temperature 97.1 F L 97.0 F L Pulse Rate 83 64 Respiratory Rate 17 18 Blood Pressure 98/53 L 132/81 Pulse Oximetry 99 98 Oxygen Delivery Room Air 11/23/24 06:00 11/23/24 08:00 Temperature 99.1 F Pulse Rate 69 Respiratory Rate 18 Blood Pressure 116/63 Pulse Oximetry 97 Oxygen Delivery Room Air <DELON Church - Last Filed: 11/23/24 09:37> Exam Narrative: Patient in wheelchair. Alert orient x3. Afebrile. Elbow has a transverse healing wound with purulent drainage. He has full range of motion. Moderate atrophy and distal weakness consistent with spinal cord injury. Elbow without instability. Moderate swelling of the bursa. Mild erythema. <Victor Manuel Saavedra MD - Last Filed: 11/23/24 16:03> Results Labs Result Diagrams: 11/23/24 05:54 11/23/24 05:54 <DELON Church - Last Filed: 11/23/24 09:37> Labs: Abnormal lab results 11/23/24 Range/Units 05:54 RBC 3.91 L (4.6-6.20) M/mm3 Hgb 11.7 L (14.0-18.0) g/dL Hct 36.0 L (42.0-52.0) % [place] % (Auto) 10.6 H (2.6-8.5) % Eos % (Auto) 7.1 H (0-4.4) % Eos # (Auto) 0.4 H (0-0.3) K/mm3 Creatinine 0.61 L (0.7-1.3) mg/dL Albumin 3.3 L (3.5-5.1) g/dL H & H 11/20/24 11/21/24 11/22/24 Range/Units 11:39 05:25 05:30 Hgb 12.3 L 11.2 L 11.1 L (14.0-18.0) g/dL Hct 37.4 L 36.1 L 35.1 L (42.0-52.0) % 11/23/24 Range/Units 05:54 Hgb 11.7 L (14.0-18.0) g/dL Hct 36.0 L (42.0-52.0) % Coagulation 11/20/24 Range/Units 12:28 INR 1.3 All other labs normal. <DELON Church - Last Filed: 11/23/24 09:37>
--- NOTE | 2024-11-23 13:46 | P.DS_ITS ---
DS: Admitting Diagnosis Discharge Date 11/23/2024 Admitting Diagnosis Cellulitis DS: Discharge Diagnosis Discharge Diagnosis (1) Left arm cellulitis: Code(s): L03.114 - Cellulitis of left upper limb Status: Acute (2) Neurogenic bladder: Code(s): N31.9 - Neuromuscular dysfunction of bladder, unspecified Status: Acute (3) Hypokalemia: Code(s): E87.6 - Hypokalemia Status: Acute (4) Hypocalcemia: Code(s): E83.51 - Hypocalcemia Status: Acute DS: Summary Hospital Course Hospital Course: # Left arm cellulitis: Patient had I&D performed 11/19/2024 in the emergency room. Wound consult Wound culture with rare Gram-positive cocci. Blood culture no growth today Ancef CT upper extremity right soft tissue swelling and prominent subcutaneous edema posterior to right elbow and proximal to mid forearm consistent with cellulitis without evident abscess. Few foci of gas in subcutaneous fat at the posterior medial right elbow likely related to reported recent I&D. No evident more distal extension of catheter gas within the deeper space of the arm to elevate suspicion for necrotizing fascitis. continue IV Ancef Wound Culture is still pending at the time of discharge is Will switch to cephalexin at discharge. Cellulitis improving Seen by orthopedics who recommended continued wound care as planned with antibiotics. Follow up as an outpatient basis. # Neurogenic bladder: Straight cath p.r.n. # Hypokalemia: Replete as needed # Hypocalcemia: Replace And monitor # DVT prophylaxis Lovenox # Code status full code Time Spent with Patient Time attestation: Total time spent providing and/or coordinating discharge services: 40 minutes Exam Narrative: General: well appearing, appears stated age. HEENT: normocephalic, atraumatic. Mucous membranes moist. EOMI, PERRLA Respiratory: clear to ascultation bilaterally. No rales/rhonic/wheezes. Cardiovascular: Regular rate and rhythm, normal S1-S2 upon ascultation. Abdomen: Soft, round, no pulsatile masses, nondistended and nontender. Extremities: No cyanosis, clubbing, or edema present. Pulses are palpable 2/2. Right elbow with edema minimal erythema. Lower extremities flaccid Neuro: Alert and orientated x 4. PERRLA. Cranial nerves 2-12 intact without focal deficit. Skin: Warm, dry, and intact, without rash, erythema, or lesion. Psych: pleasant, cooperative, normal speech, normal affect, no hallucinations, no dysarthia DS: Data Data Completed and Pending Labs on day of discharge: Labs from last 24 hours 11/23/24 05:54 WBC 4.9 RBC 3.91 L Hgb 11.7 L Hct 36.0 L MCV 92.1 MCH 29.9 MCHC 32.5 RDW 13.6 Plt Count 245 MPV 9.4 Immature Gran % (Auto) 0.2 Neut % (Auto) 55.9 Lymph % (Auto) 25.6 [place] % (Auto) 10.6 H Eos % (Auto) 7.1 H Baso % (Auto) 0.6 Lymph # (Auto) 1.26 [place] # (Auto) 0.5 Eos # (Auto) 0.4 H Baso # (Auto) 0.0 Abs Immat Gran (auto) 0.01 Absolute Neuts (auto) 2.8 Absolute Nucleated RBC 0.000 Nucleated RBC % 0.0 Sodium 139 Potassium 3.4 Chloride 105 Carbon Dioxide 25 Anion Gap 9 BUN 15 Creatinine 0.61 L Estim Creat Clear Calc 114 Estimated GFR > 60 Glucose 96 Calcium 8.7 Magnesium 2.2 Total Bilirubin 0.4 AST 28 ALT 17 Alkaline Phosphatase 65 Total Protein 6.4 Albumin 3.3 L Preliminary micro results at discharge 11/20/24 11:39 Blood Culture - Preliminary Blood 11/20/24 11:40 Blood Culture - Preliminary Blood Imaging Radiologist's impression: ITS Impressions Upper Extremity CT 11/20/24 13:49 IMPRESSION: 1. Soft tissue swelling and prominent subcutaneous edema posterior to the right elbow and proximal to mid right forearm consistent with cellulitis without evident abscess. There are few foci of gas in subcutaneous fat at the posterior medial right elbow likely related to reported recent incision and drainage. No evident more distal extension of gas or gas within the deeper spaces of the arm to elevate suspicion for necrotizing fasciitis which is ultimately a clinical di agnosis. Discharge Plan Discharge Attending physician on discharge: Harman Moody Consulting providers: Victor Manuel Saavedra Discharging Clinician: Harman Moody Anticipated Discharge Date/Time: 11/23/24 13:50 Patient Disposition: Home Activity: as tolerated Diet: regular Discharge Instructions: Dressing changes with iodoform gauze packing daily until healed Patient Instructions: Antibiotic Form Patient Language: Lao Stand Alone Forms: General Discharge Information Follow-up/Referrals: Victor Manuel Saavedra MD [Physician, Orthopedics] - 2 Weeks Ion Murcia DO [Primary Care Provider, Internal Medicine] - 1 Week Discharge Medications: Continued hydrocodone-acetaminophen 5-325 mg tablet 1 - 2 tablet PO Q6H PRN (Reason: pain) Qty: 20 0RF cephalexin 500 mg capsule 500 mg PO Q6H 10 Days Qty: 40 0RF Date of admission: 11/20/24 15:26 Primary Care Provider: Ion Murcia Admitting Provider: Harman Moody Attending physician on admission: Harman Moody Condition: Stable
[2024-11-23] MEDS: CEPHALEXIN 500 MG CAPSULE PO (14:21)
== END 2024-11-23 14:25 | disposition home or self-care (01) ==
LOC: ANHED 16:14 → ANH3MEDSUR 16:17
PROVIDERS: Nurse Practitioner Gerontology; Admitting Provider Internal Medicine; Emergency Provider Physician Assistant; PCP Internal Medicine; Visit Provider Internal Medicine
DX: L03.113 Cellulitis of right upper limb (principal); B95.8 Unspecified staphylococcus as the cause of diseases classified elsewhere; E87.6 Hypokalemia; E83.51 Hypocalcemia; G82.50 Quadriplegia, unspecified; Z99.3 Dependence on wheelchair; Z85.820 Personal history of malignant melanoma of skin; N31.9 Neuromuscular dysfunction of bladder, unspecified; K59.2 Neurogenic bowel, not elsewhere classified; Z96.611 Presence of right artificial shoulder joint; Z98.1 Arthrodesis status
CPT/HCPCS: 36415; 73080; 73201; 80048; 80053; 83605; 83735; 85025; 85055; 85610; 85652; 85730; 86140; 87040; 87070; 87075; 87147; 87186; 87205; 96361; 96365; 96366; 99212; 99285; A9270; G0378; G0463; J0612; J0690; J7030; J7120; Q9967

== ENCOUNTER 2025-01-12 14:31 | Outpatient (CLI) | payer BC, SELFPAY ==
--- NOTE | ~2025-01-12 | XR_ITS ---
EXAMINATION: XR abdomen/kub 1V, 01/12/2025 14:49 SENIOR CLINICAL STUDY MANAGER HISTORY: HX OF BLADDER STONE COMPARISON: No comparisons available. Technique: 3 view. Findings: Bowel gas pattern unremarkable. No obstruction. Right mid pole renal calculus 3 x 4 mm, moderate fecal content obscures evaluation. No acute osseous abnormality. Impression: 1. No acute abnormality. Reviewed, dictated and finalized at location P. OR CLINICAL STUDY MANAGER Impression: 1. No acute abnormality.
--- OUTSIDE RECORDS SUMMARY | 2025-01-12 12:00 | XMS_ITS | Encounter Summary ---
Author Organization [facility] Address [address] [place] [address] Phone Care Team Providers Care Carpet Binder Name Role Phone Ion Murcia DO Primary Care Provider [phone] Valentin Martinez PT Unavailable [phone] Reason for Referral * Diagnostic Imaging (Routine) - Authorized Specialty Diagnoses / Procedures Referred By Contac t Referred To Contact Diagnoses Tetraplegia (HCC) Procedures DEXA Axial Skeleton Bone Density Multi Site Colten Islas PA [address] [employer] [facility] [place] [address] Phone: tel: fax: [address] [address] Referral ID Status Reason Start Date Expiration Date V isits Requested Visits Authorized [id number] Authorized 01/12/2025 02/11/2026 1 1 L TUNER * Consultation (Routine) - Pending Review Specialty Diagnoses / Procedures Referred By Contpoli t Referred To Contact Occupational Therapy Diagnoses Tetraplegia (HCC) Neurogenic bowel Neurogenic bladder Abnormality of gait Colten Islas PA [address] [employer] [address] [place] [address] Phone: tel: fax: [facility] Medicine Occupational Therapy [address] [place] [address] Phone: tel: fax: Referral ID Status Reason Start Date Expiration Date Visits Requested Visits Authorized [id number] Pending Review Evaluate and Treat 5 02/11/2026 6 6 Question Answer PTRFR OT Evaluate and Treat Therapy options discussed with patient? Yes Location provided for therapy services is: Patient requested/Patient preferred Please select the performing region: [facility] (All Locations) [[id number]] Please select the performing department: [facility] [facility] [[id number][facility] # of visits: 6 Comments Needs seating evaluation for motorized wheelchair. He would like to get it done at: [address] [place] [address] L TUNER * Consultation (Routine) - Pending Review Specialty Diagnoses / Procedures Referred By Artur chopra Referred To Contact Physical Therapy Diagnoses Abnormality of gait Colten Islas PA [address] [facility] [address] [place] [address] Phone: tel: fax: [facility] (All Locations) Referral ID Status Reason Start Date Expiration Date Visits Requested Visits Authorized [id number] Pending Review Evaluate and Treat 5 02/11/2026 6 6 Question Answer PTRFR PT Evaluate and Treat Reason for Visit Wheelchair seating evaluation Therapy options discussed with patient? Yes Location provided for therapy services is: Patient requested/Patient preferred Please select the performing region: [facility] (All Locations) [[id number]] # of visits: 6 Comments Needs seating evaluation for motorized wheelchair. He would like to get it done at: [address] [place] [address] L TUNER Reason for Visit * Reason Comments Establish Care Encounter Details Date Type Department Care Team (Late st Contact Info) Description 01/12/2025 12:00 PM WHEEL TUNER Office Visit [facility] Orthopaedic Surgery [facility] 12th [place] [address] [place] [address] Colten Islas PA [address] [facility] [place] [address] Tetraplegia (HCC) (Primary Dx); Neurogenic bowel; Neurogenic bladder; Abnormality of gait Social History Tobacco Use Types Packs/Day Years [...] on file Legal Sex Male 2:33 AM WHEEL TUNER Gender Identity Male 02/13/2021 11:12 AM WHEEL TUNER Sexual Orientation Straight 02/13/2021 11 :12 AM WHEEL TUNER documented as of this encounter Last Filed Vital Signs Vital Sign Reading Time Taken Comments Blood Pressure 92/55 01/12/2025 11:58 AM WHEEL TUNER Pulse 41 01/12/2025 11:58 AM WHEEL TUNER Temperature - - Respiratory Rate 18 01/12/2025 11:58 AM WHEEL TUNER Oxygen Saturation - - Inhaled Oxygen Concentration - - Weight 68 kg (150 lb) 01/12/2025 11:58 AM WHEEL TUNER Height 180.3 cm (5' 11) 01/12/2025 11:58 AM WHEEL TUNER Body Mass Index 20.92 01/12/2025 11:58 AM WHEEL TUNER documented in this encounter Functional Status * BP Location Answer Date of Assessment Author Right arm 01/12/2025 11:58 AM WHEEL TUNER Denise Danielle RMA * BP Location Answer Date of Assessment Author Right arm 01/12/2025 11:58 AM WHEEL TUNER Denise Danielle RMA documented as of this encounter Patient Instructions * Patient Instructions* Colten Islas PA - 01/12/2025 12:00 PM WHEEL TUNER Consider adding on daily vitamin D 1000 units in addition to current multivitamin. Please get dexa scan done. Follow up with therapy for your seating evaluation to obtain the wheelchair which is ordered today. You can call therapy to see if Taylor is able to do the seating evaluation: [facility] Occupational Therapy [address] [place] [phone] L TUNER L TUNER documented in this encounter Plan of Treatment Scheduled Orders Name Type Priority Associated Diagnoses Orde r Schedule DEXA Axial Skeleton Bone Density Multi Site Imaging Schedule Routine, Read Routine (OP Routine) Tetraplegia (HCC) Expected: 01/26/2025, Expires: 07/12/2025 Scheduled Referrals Name Type Priority Associated Diagnoses Order Schedule Ambulatory referral order to Physical Therapy - Outpatient Referral Routine Abnormality of gait Expected: 01/26/2025 (Approximate), Expires: 01/12/2026 Ambulatory referral order to Occupational Therapy - Outpatient Referral Routine Tetraplegia (HCC) Neurogenic bowel Neurogenic bladder Abnormality of gait Expected: 03/14/2025 (Approximate), Expires: 01/12/2026 documented as of this encounter Visit Diagnoses Diagnosis Tetraplegia (HCC)- Primary Unspecified quadriplegia Neurogenic bowel Neurogenic bladder Neurogenic bladder, NOS Abnormality of gait documented in this encounter Orders General Supply Count Last Ordered Date First Or dered Date WHEELCHAIR--MOTORIZED 1 01/12/2025 documented in this encounter Care Teams Carpet Binder Relationship Specialty Start Date End Date Ion Murcia DO PCP - General 10/12/17 [place] [address] [place] [id number] Physical Therapist Physical Therapy 04/24/19 documented as of this encounter
--- OUTSIDE RECORDS SUMMARY | 2025-01-12 16:23 | XMS_ITS | Clinical Summary ---
Author Organization [facility] Address [address] [place] [address] Care Team Providers Care Box Annealer Name Role Phone Ion Murcia DO Primary Care Provider [phone] Valentin Martinez PT Unavailable [phone] Allergies Active Allergy Reactions Criticality Noted Date Comments Levofloxacin Stomach upset Low 08/08/2015 Medications ascorbic acid (VITAMIN C) 1,000 mg tabletIndication s:Vitamin C Deficiency Take 1 tablet (1,000 mg total) by mouth 2 (two) times a day Active aspirin 81 mg enteric coated tabletIndication s:Deep Vein Thrombosis Prevention Take 1 tablet (81 mg total) by mouth 2 (two) times a day for 14 days 28 tablet 03/03/2021 Active Active Problems Problem Noted Date Diagnosed Date 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 Overview (02/23/2021): Added automatically from request for surgery [id number] Tetraplegia 01/02/2021 Neurogenic bowel 01/02/2021 Neurogenic bladder 01/02/2021 Rotator cuff tear arthropathy of right shoulder 11/14/2020 Overview (11/14/2020): Added automatically from request for surgery [id number] Right ureteral stone 10/15/2017 Overview (10/15/2017): Added automatically from request for surgery [id number] EKG abnormalities 10/13/2017 Assessment & Plan (10/13/2017 [...] (10/12/2017): Added automatically from request for surgery [id number] Assessment & Plan (10/13/2017 3:48 AM CDT): -UTI in setting of obstructing stone. -Urology with plan to take to OR in morning or sooner if febrile/clinical change -f/u urine cx -cont flomax, cipro -clark Sprain of rotator cuff capsule 11/05/2013 Arthralgia of shoulder 06/30/2013 Encounters Date Type Department Care Team Description 01/12/2025 12:00 PM BUILDING ADMIN Office Visit [facility] Orthopaedic Surgery [facility] Advanced Medicine [address]th [place] [address] [place] [address] Colten Islas PA Tetraplegia (HCC) (Primary Dx); Neurogenic bowel; Neurogenic bladder; Abnormality of gait 12/08/2024 Telephone [facility] Orthopaedic Surgery [facility] Advanced [facility] [address]th [place] [address] [place] [address] Colten Islas PA 12/01/2024 Telephone [facility] Orthopaedic Surgery [address] [facility] Advanced [facility] [address]th [place] [address] [place] [address] Jael Ewing MD 10/26/2024 11:20 PM CDT - 10/26/2024 11:21 PM CDT Emergency [facility] Emergency Department [address] [place] [address] Brad Jacob MD Urinary retention (Primary Dx) [...] on file Legal Sex Male 2:33 AM BUILDING ADMIN Gender Identity Male 02/13/2021 11:12 AM BUILDING ADMIN Sexual Orientation Straight 02/13/2021 11 :12 AM BUILDING ADMIN Last Filed Vital Signs Vital Sign Reading Time Taken Comments Blood Pressure 92/55 01/12/2025 11:58 AM BUILDING ADMIN Pulse 41 01/12/2025 11:58 AM BUILDING ADMIN Temperature 36.6 C (97.8 F) 10/26/2024 8:32 PM CDT Respiratory Rate 18 01/12/2025 11:58 AM BUILDING ADMIN Oxygen Saturation 99% 10/26/2024 11:15 PM CDT Inhaled Oxygen Concentration - - Weight 68 kg (150 lb) 01/12/2025 11:58 AM BUILDING ADMIN Height 180.3 cm (5' 11) 01/12/2025 11:58 AM BUILDING ADMIN Body Mass Index 20.92 01/12/2025 11:58 AM BUILDING ADMIN Plan of Treatment Health Maintenance Due Date Last Done Comments Colon Cancer Screening-Colonoscopy 1969 Depression Screening 1969 Hepatitis C Screening 1969 Prostate Cancer Screening-PSA 1969 DTaP/Tdap/Td Vaccine (1 - Tdap) 1980 Hepatitis B Screening 06/13/1987 Regular Well Visit/Exam 18-64 06/13/1987 Zoster Vaccine (1 of 2) 06/13/2019 Covid-19 Vaccine ( - 2024-2 6 season) 2024 05/30/2020, 05/02/2020 Influenza Vaccine (#1) 2024 Pneumococcal vaccine <65 Aged Out No longer eligible based on patient's age to complete this topic Medical Devices Implanted Type Area Instrument Lens Grinder Device Identifier Shelf Expiration Date Model / Serial / Lot Head Held HighniZeroG Wireless Inc [id number] Tornier Aequalis Perform Od29 Mm Lateralize Augment Reverse Shoulder +3 Mm Baseplate Glenoid - [id number] - [id number] Implanted:Qty: 1 on 01/20/2021 by Darci Bermeo MD at [facility] Plate Right: Arm MyRefers [id number] 12/23/2024 [id number] / [id number] / [id number] Chug Inc [id number] Universa 6fr 24cm Radiopaque Positioner Shipwright Apprentice Braid Tether - [id number] Implanted:Qty: 1 on 10/23/2017 by Js Dsouza MD at [facility] Stent Right: Ureter [employer] [id number] 09/19/2019 [id number] / / [id number] Jusp Technology Inc [id number] Aequalis Perform 7mm Reverse Screw Bone Sterile Latex Free - [id number] - [id number] Implanted:Qty: 1 on 01/20/2021 by Darci Bermeo MD at [facility] Right: Arm MyRefers [id number] 09/07/2025 [id number] / [id number] / [id number] Tornier Inc [id number] Aequalis Perform Reversed Od5 Mm L46 Mm Peripheral Glenoid Screw Baseplate Nonsterile - [id number] Implanted:Qty: 1 on 01/20/2021 by Darci Bermeo MD at [facility] Right: Arm Jusp Technology Inc [id number] / / Tornier Inc [id number] Aequalis Perform Reversed 5mm 22mm Peripheral Glenoid Screw - [id number] Implanted:Qty: 1 on 01/20/2021 by Darci Bermeo MD at [facility] Right: Arm Jusp Technology Inc [id number] / / Tornier Inc [id number] Aequalis Perform Reversed 5mm 26mm Peripheral Glenoid Screw - [id number] Implanted:Qty: 1 on 01/20/2021 by Darci Bermeo MD at [facility] Right: Arm Bookioo Inc [id number] / / Tornier Inc [id number] Aequalis Perform Reversed 5mm 34mm Peripheral Glenoid Screw - [id number] Implanted:Qty: 1 on 01/20/2021 by Darci Bermeo MD at [facility] Right: Arm Jusp Technology Inc [id number] / / Smooth Biomet Inc [id number] 14mm 130mm Shoulder Stem Humeral Trabecular Metal Tivanium - [id number] - [id number] Implanted:Qty: 1 on 01/20/2021 by Darci Bermeo MD at [facility] Right: Arm Smooth Biomet Inc [id number] 10/01/2030 [id number] / [id number] Smooth Biomet Inc [id number] 14mm 130mm Shoulder Stem Humeral Trabecular Metal Tivanium - [id number] 3 - [id number] Implanted:Qty: 1 on 01/20/2021 by Darci Bermeo MD at [facility] Right: Arm Smooth Bi[employer] Inc [id number] 10/01/2030 [id number] / [id number] Head Held Highnier Inc [id number] Tornier Aequalis Perform Od39 Mm Lateralize Reverse Shoulder +3 Mm Sphere Glenoid - [id number] - [id number] Implanted:Qty: 1 on 03/02/2021 by Darci Bermeo MD at [facility] Right: Shoulder MyRefers [id number] 04/29/2025 [id number] / [id number] / Smooth Biomet Inc [id number] 40mm H+0mm Reverse Retentive Humerus 12d 65d Liner Shoulder - [id number] Implanted:Qty: 1 on 03/02/2021 by Darci Bermeo MD at [facility] Right: Shoulder Smooth Biomet Inc [id number] 04/18/2023 [id number] / / [id number] Smooth Biomet Inc [id number] Reverse Shoulder 12d +12mm Spacer Humeral Trabecular Metal Latex Free - [id number] Implanted:Qty: 1 on 03/02/2021 by Darci Bermeo MD at [facility] Right: Shoulder Smooth Bi[employer] Inc [id number] 09/05/2030 [id number] / / [id number] Explanted Type Area Instrument Lens Grinder Device Identifier Shelf Expiration Date Model / Serial / Lot Smooth Biomet Inc [id number] Reverse Shoulder 12d +9mm Spacer Humeral Trabecular Metal Sterile Latex Free - [id number] - [id number] Implanted:Qty: 1 on 01/20/2021 by Darci Bermeo MD at [facility] Explanted:Qty: 1 on 03/02/2021 by Darci Bermeo MD at [facility] Right: Arm Smooth Biomet Inc [id number] 05/18/2029 [id number] / [id number] / [id number] Description:Implant thrown i n trash after explanted from patient Smooth Biomet Inc [id number] 40mm H+0mm Reverse Humerus 7d Standard Liner Shoulder Trabecular - [id number] - [id number] Implanted:Qty: 1 on 01/20/2021 by Darci Bermeo MD at [facility] Explanted:Qty: 1 on 03/02/2021 by Darci Bermeo MD at [facility] Right: Arm Smooth Biomet Inc [id number] 12/18/2021 [id number] / [id number] / [id number] Description:Implant thrown i n the trash after explanted from patient Head Held HighniZeroG Wireless Inc Rwm915 Tornier Aequalis Perform 39mm Reverse Shoulder Standard Sphere - [id number] - [id number] Implanted:Qty: 1 on 01/20/2021 by Darci Bermeo MD at [facility] Explanted:Qty: 1 on 03/02/2021 by Darci Bermeo MD at [facility] Right: Arm Bookioo Inc [id number] 11/22/2025 SCQ297 / [id number] / [id number] Description:Implant thrown i n trash after explanted [...] Results * eGFR (10/26/2024 9:33 PM CDT) [facility] eGFR >90 >=60 mL/min/1. 73 m2 Comment: [...] of Race in Diagnosing Kidney Disease, JASN 2020). The CKD-EPI equation should not be used for patients with unstable renal function and has not been validated in children and those over 70. Current interpretive data was last reviewed 2020. Blood 10/26/2024 9:33 PM CDT 10/26/2024 10:08 PM CDT us Brad Jacob MD LAB BLOOD ORDERABLES Final Re sult [facility] Department [place] [address] * Differential, auto (10/26/2024 9:33 PM CDT) [facility] Neutrophil abs 3.64 1.50 - 6.50 K/cumm Imm gran abs 0.01 0.00 - 0.10 K/cumm [facility] Lymphocyte abs 1.51 0.80 - 3.30 K/cumm [facility] Monocyte abs 0.51 0.20 - 0.80 K/cumm [facility] Eosinophil abs 0.13 0.00 - 0.50 K/cumm [facility] Basophil abs 0.03 0.00 - 0.10 K/cumm [facility] Neutrophil pct 62.5 % [facility] Comment: Interpretive Data Percent cell count reference ranges are not reported, since discordance with absolute values may lead to misinterpretation of CBC data. Current Interpretive Data was last revised on 2017. Imm gran pct 0.2 % [facility] Comment: Interpretive Data Percent cell count reference ranges are not reported, since discordance with absolute values may lead to misinterpretation of CBC data. Current Interpretive Data was last revised on 2017. Lymphocyte pct 25.9 % [facility] Comment: Interpretive Data Percent cell count reference ranges are not reported, since discordance with absolute values may lead to misinterpretation of CBC data. Current Interpretive Data was last revised on 2017. Monocyte pct 8.7 % [facility] Comment: Interpretive Data Percent cell count reference ranges are not reported, since discordance with absolute values may lead to misinterpretation of CBC data. Current Interpretive Data was last revised on 2017. Eosinophil pct 2.2 % [facility] Comment: Interpretive Data Percent cell count reference ranges are not reported, since discordance with absolute values may lead to misinterpretation of CBC data. Current Interpretive Data was last revised on 2017. Basophil pct 0.5 % [facility] Comment: Interpretive Data Percent cell count reference ranges are not reported, since discordance with absolute values may lead to misinterpretation of CBC data. Current Interpretive Data was last revised on 2017. Blood 10/26/2024 9:33 PM CDT 10/26/2024 10:08 PM CDT us Brad Jacob MD LAB BLOOD ORDERABLES Final Re sult [facility] Department of Laboratories [place], [place] [id number] * (ABNORMAL) Urinalysis reflex to microscopic and culture Urine (10/26/2024 9:33 PM CDT) Color, ur Yellow Yellow Clarity, ur Clear Clear [facility] Specific gravity, ur 1.008 1.003 - 1.030 [facility] pH, urine 6.5 [facility] Comment: Interpretive Data U rine pH is affected by diet, medications, systemic acid-base disturbances, and renal tubular function. pH may affect urinary stone formation. For example, urine pH below 6.0 may help reduce the tendency for calcium phosphate stones and pH greater than 6.0 may reduce the tendency for uric acid stone formation. Source: [facility] Current Interpretive Data was last revised on 2017 Protein, ur ql Trace Negative [facility] Glucose, ur ql Negative Negative [facility] Ketones, ur Trace Negative [facility] Bilirubin, ur Negative Negative [facility] Blood, ur Trace(A) Negative [facility] Urobilinogen, ur <2.0 <2.0 mg/dL [facility] Nitrite, ur Negative Negative [facility] Leukocyte esterase, ur 2+(A) Negative [facility] UA reflex comment Reflex to microscopic UA will be performed. [facility] Urine 10/26/2024 9:33 PM CDT 10/26/2024 9:51 PM CDT Brad Jacob MD LAB MICROBIOLOGY - GENERAL OR DERABLES Final Result [facility] Department [place] [address] * CBC with auto differential (10/26/2024 9:33 PM CDT) WBC 5.83 3.80 - 9.90 K/cumm Hgb 13.2 13.0 - 17.5 g/dL [facility] Hct 39.1 38.9 - 50.3 % [facility] Plt 246 150 - 400 K/cumm [facility] MPV 9.7 9.1 - 12.3 fL [facility] RBC 4.35 4.30 - 5.80 M/cumm [facility] MCV 89.9 81.3 - 96.4 fL [facility] MCH 30.3 27.1 - 33.3 pg [facility] MCHC 33.8 32.3 - 35.7 g/dL [facility] RDW CV 14.0 11.1 - 14.9 % [facility] RDW SD 45.8 35.7 - 48.1 fL [facility] NRBC abs 0.00 0.00 - 0.01 K/cumm [facility] Blood 10/26/2024 9:33 PM CDT 10/26/2024 10:08 PM CDT Brad Jacob MD LAB BLOOD ORDERABLES Final Re sult Performing Organization Address [facility] Co de Phone Number [facility] Department [place] [address] * (ABNORMAL) Urinalysis, microscopic only (10/26/2024 9:33 PM CDT) WBC, ur 11-20(A) 0 - 5 /HPF RBC, ur 6-10(A) 0 - 2 /HPF [facility] Epithelial cells, squamous, ur 1-5 0 - 5 /HPF [facility] Bacteria, ur Trace(A) [facility] Culture Reflex Comment Reflex to urine culture will be performed. [facility] Urine 10/26/2024 9:33 PM CDT 10/26/2024 9:51 PM CDT Brad Jacob MD LAB URINE ORDERABLES Final Re sult Performing Organization Address [facility] de Phone Number [facility] [place] [address] * Urine culture Urine (10/26/2024 9:33 PM CDT) Report Final Report: Less than 100,000 colonies/mL (clinically insignificant growth based on current clinical standards) Organism (CLINICALLY INSIGNIFICANT GROWTH [facility] Urine 10/26/2024 9:33 PM CDT 10/26/2024 11:03 PM CDT Narrative [facility] - 10/28/2024 9:53 AM CDT Urine culture reflexed based upon urinalysis results. Testing performed by [facility] Microbiology Laboratory ([phone]) Brad Jacob MD LAB MICROBIOLOGY - GENERAL OR DERABLES Final Result [facility] Department [place] [address] * (ABNORMAL) Basic metabolic panel (10/26/2024 9:33 PM CDT) Sodium 143 135 - 145 mmol/L Potassium, pl 3.7 3.3 - 4.9 mmol/L [facility] Chloride 106 97 - 110 mmol/L [facility] CO2 25 22 - 32 mmol/L [facility] Anion gap 12 2 - 15 mmol/L [facility] BUN 17 6 - 25 mg/dL [facility] Creatinine 0.69(L) 0.80 - 1.30 mg/dL [facility] Glucose 116 70 - 199 mg/dL [facility] Comment: Interpretive Data Fasting glucose >/= 126 [...] 2022. Calcium 9.8 8.5 - 10.3 mg/dL [facility] Blood 10/26/2024 9:33 PM CDT 10/26/2024 10:08 PM CDT Brad Jacob MD LAB BLOOD ORDERABLES Final Re sult Performing Organization Address [facility]/ZIP Co de Phone Number [facility] Department [place] [address] from [place] [address] [address] [facility] [place] [address] [facility] [place] [place] [address] [facility] Advance Directives For more information, please contact: [phone] * Full Code (Latest Code Status on File) Date Activated Date Inactivated Comments 03/02/2021 5:11 PM 03/03/2021 9:25 PM * Full Code Date Activated Date Inactivated Comments 01/20/2021 1:34 PM 01/22/2021 8:05 PM * Full Code Date Activated Date Inactivated Comments 10/13/2017 3:09 PM 10/13/2017 8:26 PM * Full Code Date Activated Date Inactivated Comments 10/13/2017 3:15 AM 10/13/2017 3:09 PM Care Teams Box Annealer Relationship Specialty Start Date End Date Ion Murcia DO PCP - General 10/12/17 [place] [address] [place] [address] Physical Therapist Physical Therapy 04/24/19
--- OUTSIDE RECORDS SUMMARY | 2025-01-12 16:23 | XMS_ITS | Clinical Summary ---
Author Organization [facility] Address [address] [facility] [place] [address] Care Team Providers Care Crm Coordinator Name Role Phone Valentin Tello MD Primary Care Provider [phone] Bina Carranza CUTTING AND BONING SUPERVISOR Unavailable [phone] Source Comments [facility],non-owned Affiliates and Associated Physician Practices is amultiple site organization consisting of ambulatory clinics and hospital sitesin [place], [place], [place] and [place]. This disclosure is being madepursuant to the Care Everywhere program and may not contain all information available regarding this patient. 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 Gender Identity Not on file [...] DEPRESSION SCREENING 02/19/2024 COVID-19 VACCINE (1 - 2024-2 6 season) 2024 INFLUENZA VACCINE (#1) 2024 HIB [...] this topic Medical Devices Implanted Type Area B2B Appointment Setter Device Identifier Shelf Expiration Date Model / Serial / Lot Y-Knot Rc All Suture Shelton With Two #2 Hi-Fi Sutures Implanted:Qty: 2 on 03/04/2014 by Jos Wilkins MD at [facility] Left: Shoulder Conmed Benjy 08/18/2014 [facility]02 / / [id number] Y-Knot Rc All-Suture Shelton With Two #2 Hi-Fi Sutures Implanted:Qty: 1 on 03/04/2014 by Jos Wilkins MD at [facility] Left: Shoulder Conmed Benjy 10/19/2018 [facility] / / [id number] Poplok Suture Shelton Implanted:Qty: 1 on 03/04/2014 by Jos Wilkins MD at [facility] Left: Shoulder Conmed Benjy 10/19/2018 CK-4500 / / [id number] Poplok Suture Shelton Implanted:Qty: 2 on 03/04/2014 by Jos Wilkins MD at [facility] Left: Shoulder Conmed Benjy 08/18/2018 CKP-4500 / / [id number] [employer]t Suture Shelton Withthree #2 Hi-Fi Sutures Implanted:Qty: 1 on 03/04/2014 by Jos Wilkins MD at [facility] Left: Shoulder Conmed Benjy 11/19/2015 CF-5503 / / [id number] Poplok Suture Shelton Implanted:Qty: 1 on 03/04/2014 by Jos Wilkins MD at [facility] Left: Shoulder Conmed Benjy 08/18/2018 CKP-3500 / / [id number] 4.5 Mm Peek Shelton Implanted:Qty: 1 on 07/10/2016 by Jos Wilkins MD at [facility] Right: Shoulder [facility] [id number] 11/17/2020 [id number] / / [id number] Quattro X Suture Shelton 5.5 Mm Peek Implanted:Qty: 1 on 07/10/2016 by Jos Wilkins MD at [facility] Right: Shoulder [facility] 03/20/2021 CM-9255 / / [id number] 4.5 Mm Peek Shelton Implanted:Qty: 1 on 07/10/2016 by Jos Wilkins MD at [facility] Right: Shoulder [facility] [id number] 11/17/2020 [id number] / / [id number] 5.5 Mm Triple Loaded Suture Shelton Implanted:Qty: 1 on 07/10/2016 by Jos Wilkins MD at [facility] Right: Shoulder [facility] [id number] 11/17/2020 [id number] / / [id number] Insurance [facility] SELF PAY NO INSURANCE Member Subscriber Plan / Payer (Ef fective for All Dates) Name:Panchito Rodney Member ID:Not on file Relation to Subscriber:Not on file Name:PANCHITO RODNEY Subscriber ID:Not on file (Home) Address: [address] [place] [address] Payer ID:Not on file Group ID:Not on file Type:Self Pay Address: [place], [place] [facility] DEPT OF LABOR Advance Directives * Full Code (Latest Code Status on File) Date Activated Date Inactivated Comments 07/10/2016 7:07 PM 07/17/2016 4:26 PM * Full Code Date Activated Date Inactivated Comments 03/04/2014 7:28 PM 04/16/2014 1:22 PM Care Teams Crm Coordinator Relationship Specialty Start Date End Date Valentin Tello MD PCP - General Endocrinology 03/04/14 Bina Carranza MSW [place] Trim Mounter 03/08/14
--- OUTSIDE RECORDS SUMMARY | 2025-01-12 16:23 | XMS_ITS | Encounter Summary ---
Author Organization [facility] Address [address] [facility] [place] [address] Care Team Providers Care Allied Health Teacher Name Role Phone Valentin Tello MD Primary Care Provider [phone] Bina Carranza BOTTLE PACKING MACHINE CLEANER Unavailable [phone] Encounter Details Date Type Department Care Team (Late st Contact Info) Description 10/30/2019 Lab Requisition [facility] Care DermPath Lab [address] [facility] [facility] [facility] [place] [id number] Figueroa Garcia MD [address] [place] [address] Social History Tobacco Use Types Packs/Day Years Used Date Smoking Tobacco: Never Smokeless Tobacco: Never Alcohol Use Standard Drinks/Week Comments Yes 0 (1 standard drink = 0.6 oz pur e alcohol) once a week Sex and Gender Information Value Date Recorded Sex Assigned at Not on file 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 The margin is inked green. Jar 0. Specimen B: Received is one formalin filled container labeled with the patient's name and designated right lat upper back below shoulder. The specimen consists of a shave biopsy measuring [id number]. The margin is inked green. Jar 0. Specimen C: Received is one formalin filled container labeled with the patients name and designated left lat upper back below shoulder. The specimen consists of a shave removal measuring [id number]. The margin is inked green. Jar 0. Specimen D: Received is one formalin filled container labeled with the patients name and designated right upper back med to scapula. The specimen consists of a shave removal measuring [id number]. The margin is inked green. Jar 0. [...] characteristic determined by the Dermatopathology Laboratory at [facility], directed by Dr. Reva Jimenez. These tests need not be, and therefore are not, approved by the [place] Food and Drug Administration. The tests are used for clinical purposes. Billing Codes Specimen Charges Stain Charges 79525 [id number] [id number] 85274 1 1 1 1 0 6:01 PM [...] PATHOLOGY/CYTOLOGY ORD ERABLES Final Result DERMATOPATHOLOGY LABORATORY [facility] - Department of Dermatology [facility] Medicine [address] [place] [address], [address] [phone] documented in this encounter Visit Diagnoses Not on filedocumented in this encounter Care Teams Allied Health Teacher Relationship Specialty Start Date End Date Valentin Tello MD PCP - General Endocrinology 03/04/14 Bina Carranza MSW [place] 03/08/14 documented as of this encounter
--- OUTSIDE RECORDS SUMMARY | 2025-01-12 16:23 | XMS_ITS | Clinical Summary ---
Author Organization [facility] Address [address] [place] [id number] Care Team Providers Care Electrical Supervisor Name Role Phone Unavailable Primary Care Provider [...] Vaccines (1 of 2) 06/13/2019 COVID-19 Vaccine ( - 2024-2 6 season) 2024 Influenza Adult (#1) 2024 Hepatitis A Vaccines Aged Out No long er eligible based on patient's age to complete this topic Meningococcal B Vaccine Aged Out No l onger eligible based on patient's age to complete this topic Meningococcal Vaccine Aged Out No sukhjinder pat eligible based on patient's age to complete this topic RSV Immunizations Under 20 Months Aged Out No longer eligible based on patient's age to complete this topic
--- OUTSIDE RECORDS SUMMARY | 2025-01-12 16:23 | XMS_ITS | Encounter Summary ---
Author Organization [facility] Address [address] 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
--- OUTSIDE RECORDS SUMMARY | 2025-01-12 16:23 | XMS_ITS | Encounter Summary ---
Author Organization [facility] Address [address] [facility] [place] [address] Care Team Providers Care Service Car Operator Name Role Phone Valentin Tello MD Primary Care Provider [phone] Bina Carranza COLORIST PHOTOGRAPHY Unavailable [phone] Encounter Details Date Type Department Care Team (Late st Contact Info) Description 08/02/2022 Lab Requisition [facility] - DermPath Lab [address] [place] [address] Figueroa Garcia MD [address] [place] [address] Social History Tobacco Use Types Packs/Day Years Used Date Smoking Tobacco: Never Smokeless Tobacco: Never Alcohol Use Standard Drinks/Week Comments Yes 0 (1 standard drink = 0.6 oz pur e alcohol) once a week Sex and Gender Information Value Date Recorded Sex Assigned at Not on file 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 Reva Jimenez. These tests need not be, and therefore are not, approved by the [place] Food and Drug Administration. The tests are used for clinical purposes. Billing Codes Specimen Charges Stain Charges 92782 99269 65074 79756 1 1 1 1 55307 41113 1 1 3 5:43 PM CDT DERMATOPATHOLOGY [...] PATHOLOGY/CYTOLOGY ORD ERABLES Final Result DERMATOPATHOLOGY LABORATORY [facility] Department of Dermatology [facility] Medicine [address] [place] [address], [address] [phone] documented in this encounter Visit Diagnoses Not on filedocumented in this encounter Care Teams Service Car Operator Relationship Specialty Start Date End Date Valentin Tello MD PCP - General Endocrinology 03/04/14 Bina Carranza MSW MS Bag Machine Helper 03/08/14 documented as of this encounter
--- OUTSIDE RECORDS SUMMARY | 2025-01-12 16:23 | XMS_ITS | Encounter Summary ---
Author Organization [facility] Address [address] [facility] [place] [address] Care Team Providers Care Certified Caregiver Name Role Phone Valentin Tello MD Primary Care Provider [phone] Bina Carranza ACETYLENE TORCH OPERATOR Unavailable [phone] Encounter Details Date Type Department Care Team (Late st Contact Info) Description 06/04/2019 Lab Requisition [facility] Care DermPath Lab [address] [facility] [place] [id number] Figueroa Garcia MD [address] [place] [address] Social History Tobacco Use Types Packs/Day Years Used Date Smoking Tobacco: Never Smokeless Tobacco: Never Alcohol Use Standard Drinks/Week Comments Yes 0 (1 standard drink = 0.6 oz pur e alcohol) once a week Sex and Gender Information Value Date Recorded Sex Assigned at Not on file 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 Check margins. 0 4:49 PM [facility] DERMATOPATHOLOGY LABORATORY Gross Description Specimen A: Received is one formalin filled container labeled with the patient's name and designated midline upper back. The specimen consists of a shave biopsy measuring [id number]. Jar 0. Specimen B: Received is one formalin filled container labeled with the patients name and designated left jawline. The specimen consists of a shave removal measuring [id number]. The margin is inked green. Jar 0. Specimen C: Received is one formalin filled container labeled with the patients name and designated right mid lat upper arm. The specimen consists of a shave removal measuring [id number]. The margin is inked green. Jar 0. 0 4:49 PM [facility] DERMATOPATHOLOGY LABORATORY Microscopic Description Specimen A. SKIN, [...] margin of the specimen. 0 4:49 PM [facility] DERMATOPATHOLOGY LABORATORY Disclaimer An external and internal positive and negative controls are appropriate for the histochemical, immunohistochemical and immunofluorescence stain(s) in this case (if any), except where stated explicitly. The performance characteristics of the stain(s) cited in this report were developed and its performance characteristic determined by the Dermatopathology Laboratory at [facility], directed by Dr. Reva Jimenez. These tests need not be, and therefore are not, approved by the [place] Food and Drug Administration. The tests are used for clinical purposes. Billing Codes Specimen Charges Stain Charges 02486 93203 16152 1 1 1 72628 1 0 4:49 PM CDT DERMATOPATHOLOGY LABORATORY [...] DERMATOPATHOLOGY LABORATORY [facility] - Department of Dermatology [address] [place] [address] 5th Floor Lab [address] [phone] documented in this encounter Visit Diagnoses Not on filedocumented in this encounter Care Teams Certified Caregiver Relationship Specialty Start Date End Date Valentin Tello MD PCP - General Endocrinology 03/04/14 Bina Carranza MSW [place] Animal Handler 03/08/14 documented as of this encounter
--- OUTSIDE RECORDS SUMMARY | 2025-01-12 16:23 | XMS_ITS | Encounter Summary ---
Author Organization [facility] Address [address] [facility] [place] [address] Care Team Providers Care Workers Compensation Manager Name Role Phone Valentin Tello MD Primary Care Provider [phone] Bina Carranza CHUCK TENDER Unavailable [phone] Encounter Details Date Type Department Care Team (Late st Contact Info) Description 07/04/2016 [facility] Outpatient Visit [facility] Orthopedics - Radiology [address] [place], [place] [id number] Jos Wilkins MD [address] [facility] [address] [place] [address] Social History Tobacco Use Types Packs/Day Years Used Date Smoking Tobacco: Never Alcohol Use Standard Drinks/Week Comments Yes 0 (1 standard drink = 0.6 oz pur e alcohol) once a week Sex and Gender Information Value Date Recorded Sex Assigned at Not on file 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 Answer Date of Assessment Author No 04/16/2014 10:06 AM VICE PRESIDENT BUSINESS & CORPORATE DEVELOPMENT Danilo Quiles RN * Is person blind [...] of Assessment Author No 04/16/2014 10:06 AM Dnailo Roberts RN documented as of this encounter Mental Status * Does person have difficulty concentrating/remembering/making decisions? Answer Entry Date Author No 04/16/2014 10:06 AM Danilo Roberts RN documented in this encounter Plan of Treatment Not on file documented as of this encounter Visit Diagnoses Not on filedocumented in this encounter Care Teams Workers Compensation Manager Relationship Specialty Start Date End Date Valentin Tello MD PCP - General Endocrinology 03/04/14 Bina Carranza MSW [place] Area Mechanic 03/08/14 documented as of this encounter
--- OUTSIDE RECORDS SUMMARY | 2025-01-12 16:23 | XMS_ITS | Encounter Summary ---
Author Organization [facility] Address [address] [facility] [place] [address] Care Team Providers Care Cardiology Consultants Name Role Phone Valentin Tello MD Primary Care Provider [phone] Bina Carranza RENEWABLE ENERGY DIVISION MANAGER Unavailable [phone] Encounter Details Date Type Department Care Team (Late st Contact Info) Description 07/10/2016 [facility] Outpatient Visit [facility] Orthopedics - Radiology [address] [place] [address] Jos Wilkins MD [address] [facility] [address] [place] [address] Social History Tobacco Use Types Packs/Day Years Used Date Smoking Tobacco: Never Alcohol Use Standard Drinks/Week Comments Yes 0 (1 standard drink = 0.6 oz pur e alcohol) once a week Sex and Gender Information Value Date Recorded Sex Assigned at Not on file 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 No 07/10/2016 12:09 PM Lore Fernandez RN Is person blind or have seri ous difficulty seeing? No 07/10/2016 12:09 PM Lore Fernandez RN Does person have serious difficulty walking/climbing stairs? Yes 07/10/2016 12:09 PM Lore Fernandez RN Does person have difficulty dressing/bathing? Yes 07/10/2016 12:09 PM Lore Fernandez RN Does person have difficulty doing errands alone? No 07/10/2016 12:09 PM Lore Fernandez RN Does person have difficulty concentrating/remembering/making decisions? No 07/10/2016 12:09 PM Lore Fernandez RN * Is person deaf or have serious [...] on filedocumented in this encounter Care Teams Cardiology Consultants Relationship Specialty Start Date End Date Valentin Tello MD PCP - General Endocrinology 03/04/14 Bina Carranza MSW [place] Metal Painter 03/08/14 documented as of this encounter
--- OUTSIDE RECORDS SUMMARY | 2025-01-12 16:23 | XMS_ITS | Encounter Summary ---
Author Organization [facility] Address [address] 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
== END 2025-01-12 14:32 | disposition home or self-care (01) ==
PROVIDERS: PCP Internal Medicine; Visit Provider Internal Medicine
DX: N21.0 Calculus in bladder (principal)
CPT/HCPCS: 74018